=== PATIENT | female | born 1935 | race Caucasian/White ===

== ENCOUNTER 2020-05-02 15:57 | Inpatient (IN) | payer OTHER ==
[2020-05-02] MEDS ORDERED: NITROGLYCERIN 2% OINTMENT - 1GM PACKET TD ONE ×2 (16:37→16:38)
[2020-05-02] MEDS ORDERED: FUROSEMIDE 40 MG/4 ML INJECTABLE VIAL IVPUSH ONE ×3 (16:39→22:41)
--- NOTE | 2020-05-02 16:52 | PDOC ---
History of Present Illness - General Chief Complaint: Respiratory Stated Complaint: RESPIRATORY Time Seen by Provider: 05/02/20 16:12 - History of Present Illness Initial Comments: 05/02/20 16:46 84 y/o F hx of CHF, afib not on anticoagulation, copd, generalized anxiety, dementia, Breast Ca s/p masectomy with lymph node resection. She was d/c three days ago from this facility after tx for uti.Presents to the ED with shortness of breath via EMS. Findings of hypernatramia on routine labs at [facility] yesterday. Pt on nightly BIPAP at baseline. Pt unable to contribute to hx due to respiratory distress, placed on BIPAP in ED. PMHx: as noted above ROS: as noted Allergies: ceftriaxone PE: GENERAL: Awake, alert, and fully oriented, in no acute distress HEAD: No signs of trauma, normocephalic, atraumatic EYES: PERRLA, EOMI, sclera anicteric, conjunctiva clear ENT: Auricles normal inspection, hearing grossly normal, nares patent, oropharynx clear without exudates. Moist mucosa NECK: Normal ROM, supple, no lymphadenopathy, JVD, or masses LUNGS:crackles bilateral lung bajwa. HEART: tachycardic , normal S1 and S2, no murmurs, rubs or gallops, ABDOMEN: Soft, nontender, normoactive bowel sounds. No guarding, no rebound. No masses EXTREMITIES : Pitting edema in lower extremities bilaterally NEUROLOGICAL: Cranial nerves II through XII grossly intact. Normal speech, no focal sensorimotor deficits SKIN: Warm, Dry, normal turgor, no rashes or lesions noted 05/02/20 16:48 05/02/20 17:29 05/02/20 18:17 05/02/20 18:22 05/02/20 18:27 Past History - Medical History Allergies/Adverse Reactions: Allergies Allergy/AdvReac Type Severity Reaction Status Date / Time bee pollen Allergy Unknown Verified 05/02/20 16:18 ceftriaxone Allergy Verified 05/02/20 16:18 Tetanus Vaccines and Toxoid Allergy Verified 05/02/20 16:18 Home Medications: Ambulatory Orders Mirtazapine [Remeron -] 15 mg PO HS tablet 04/10/20 Albuterol 2.5/Ipratropium 0.5 [Duoneb -] 1 amp NEB BID 05/03/20 Amino Acids 4.25%/D5w [Clinimix 4.25%/D5w Solution] 72 ml IV Q24H infus.bag 05/19/20 Collagenase Clostridium Hist. [Santyl -] 1 applic TP DAILY tube 05/19/20 Metoprolol Tartrate [Lopressor -] 25 mg PO BID tablet 05/19/20 Mirtazapine [Remeron -] 15 mg PO HS tablet 05/19/20 Nystatin Powder [Nystop Powder -] 1 applic TP BID applic 05/19/20 Pantoprazole Sodium [Protonix IV] 40 mg IVPUSH BID vial 05/19/20 Cancer: Yes Cardiac Disorders: Yes (afib) CVA: (Dysphagia) COPD: Yes CHF: Yes GI Disorders: Yes (GERD) Disorders: Yes (POLINA) Psychiatric Problems: Yes (anxiety) - Immunization History Immunization Up to Date: No - Psycho-Social/Smoking History Smoking History: Unknown if ever smoked Have you smoked in the past 12 months: No Information on smoking cessation initiated: No - Substance Abuse Hx (Audit-C & DAST Scrn) How often the patient has a drink containing alcohol: Never Score: In Men: 4 or > Positive; In Women: 3 or > Positive: 0 Screen Result (Pos requires Nsg. Audit-10AR): Negative In the last yr the pt used illegal drug/Rx for NonMed reason: No Score: Yes response is considered Positive: 0 Screen Result (Positive result requires Nsg. DAST-10): Negative Review of Systems - Review of Systems Able to Perform ROS?: No (dementia) *Physical Exam - Vital Signs Last Vital Signs Temp Pulse Resp BP Pulse Ox 123 H 24 H 157/132 H 100 05/02/20 16:11 05/02/20 16:11 05/02/20 16:11 05/02/20 16:11 ED Treatment Course - LABORATORY CBC & Chemistry Diagram: 05/18/20 12:12 05/18/20 12:14 Medical Decision Making - Medical Decision Making 05/02/20 16:55 pt hypertensive nitropaste and iv lasix given continue to reassess blood pressure pt on bipap, oxygen sat at high 90's-100 05/02/20 17:25 CXR:pleural effusion and bibasilar atelectasis. EKG: pt blood pressure and respiratory effort improved after the above interventions 05/02/20 18:08 acute pulmonary edema elevated white count 12 midly anemic hgb 8.8 hypernatremic; 159 POLINA creatinine 1.7 lactic acid 2.1 ua 3+ leukocyte esterase pt given aztreonam IV renal contacted for consult on hypernatremia admit for further management. 05/02/20 19:04 Dr. West (renal consult) frequent bmp checks q3-4hrs. hold fluids at this time due to volume overload feed pt whenever they are able to tolerate feeds. 05/02/20 20:45 pt with worsening tachycardia 500 cc bolus ordered will recheck temp and reassess. 05/02/20 21:17 pt blood pressure improved after fluids, temp 98.3 (oral) tachycardia improved. Discharge - Discharge Information Problems reviewed: Yes Clinical Impression/Diagnosis: Failure to thrive Condition: Fair Disposition: DISCH TO [facility] - Follow up/Referral - Patient Discharge Instructions - Post Discharge Activity
[2020-05-02] MEDS ORDERED: FUROSEMIDE 40 MG/4 ML INJECTABLE VIAL ONE (17:03)
[2020-05-02 17:13] LABS: BASO % 0.9 % (0-2.0); EOS % 0.8 % (0-4.5); HEMATOCRIT 28.8 % (32.4-45.2); HEMOGLOBIN 8.8 GM/dL (10.7-15.3); LYMPH % 5.7 % (8-40); MCH 27.3 pg (25.7-33.7); MCHC 30.6 g/dl (32.0-36.0); MEAN CELL VOLUME 89.1 fl (80-96); MEAN PLT VOLUME 8.8 fl (7.5-11.1); MONO % 2.2 % (3.8-10.2); NEUT % 90.4 % (42.8-82.8); PLATELET COUNT 258 K/MM3 (134-434); RBC 3.23 M/mm3 (3.60-5.2); RDW 20.8 % (11.6-15.6)
[2020-05-02 17:16] LABS: INR 1.03 (0.83-1.09); PROTHROMBIN TIME (PATIENT) 12.1 SEC (9.7-13.0)
[2020-05-02 17:17] LABS: VENOUS PCO2 56.3 mmHg (38-52); VENOUS PH 7.368 (7.310-7.410)
[2020-05-02 17:18] LABS: VENOUS BASE EXCESS 5.4 mmol/L (-2-2)
[2020-05-02 17:19] LABS: ACTIVATED PTT 24.5 SECONDS (25.2-36.5)
[2020-05-02 17:21] LABS: EPI CELLS 17 /uL (0-25.1); HYALINE CASTS 3 /uL (0-3.1); URINE APPEARANCE CLOUDY; URINE BACTERIA 156 /uL (0-1359); URINE BILIRUBIN NEGATIVE (NEGATIVE); URINE COLOR YELLOW; URINE GLUCOSE (UA) NEGATIVE (NEGATIVE); URINE KETONE NEGATIVE (NEGATIVE); URINE LEUK ESTERASE 3+ (NEGATIVE); URINE NITRITE NEGATIVE (NEGATIVE); URINE PROTEIN NEGATIVE (NEGATIVE); URINE UROBILINOGEN 0.2 mg/dL (0.2-1.0); URINE WBC 1710 /uL (0-25.8)
[2020-05-02 17:34] LABS: ALBUMIN 2.1 g/dl (3.4-5.0); BILIRUBIN,TOTAL 0.5 mg/dL (0.2-1); BLOOD UREA NITROGEN 81.7 mg/dL (7-18); CALCIUM 8.6 mg/dL (8.5-10.1); CREATININE 1.7 mg/dL (0.55-1.3); N-TERMINAL BNP 3765.3 pg/ml (5-450); POTASSIUM 4.6 mmol/L (3.5-5.1); TOT PROT 5.3 g/dl (6.4-8.2)
[2020-05-02] MEDS ORDERED: MEROPENEM 1 GM in DEXTROSE 5%-WATER 100 ML IVPB ONE (17:45)
[2020-05-02 17:48] LABS: URINE RBC 50.8 /uL (0-23.9); YEAST MODERATE (NEGATIVE)
[2020-05-02 17:49] LABS: ANISOCYTOSIS 2+
[2020-05-02 17:50] LABS: PLATELET ESTIMATE ADEQUATE
[2020-05-02] MEDS ORDERED: MEROPENEM 1 GM VIAL (RESTRICTED TO ID) IVPB ONE (17:53)
[2020-05-02] MEDS ORDERED: AZTREONAM 1 GM VIAL (RESTRICTED TO ID) IVPB ONE (17:57)
[2020-05-02] MEDS ORDERED: AZTREONAM 1 GM VIAL (RESTRICTED TO ID) ONE (18:19)
--- NOTE | 2020-05-02 19:17 | HP ---
CHIEF COMPLAINT: shortness of breath PCP: Megan HISTORY OF PRESENT ILLNESS: Pt is an 84 y/o female from [facility] with afib (off Eliquis since last admission), COPD, dementia, possible liver cirrhosis, left breast cancer s/p mastectomy and lymph node resection, and anxiety who presents with worsening shortness of breath. Pt was last discharged from [facility] on 04/29/20 following tx for sepsis/UTI (urine cx pseudomonas, sputum cx MRSA) with aztreonam. Pt was on BiPAP and NC at [facility]. Pt denies chest pain. She was unable to answer more questions. At presentation to ED, pt was found to have BP 150/132. ER course was notable for: (1) 40mg Iv Lasix, NS bolus, nitro paste (2) UA +3 leuk esterase, 1710 WBC, 156 bacteria (3) Na 159, Cl 118, Cr 1.7, BNP 3765 PAST MEDICAL HISTORY: afib (off Eliquis since last admission), COPD, dementia, possible liver cirrhosis, left breast cancer s/p mastectomy and lymph node resection, and anxiety PAST SURGICAL HISTORY: mastectomy Social History: Smoking: unknown Alcohol: unknown Drugs: unknown [facility] resident Allergies bee pollen Allergy (Unknown, Verified 05/02/20 16:18) ceftriaxone Allergy (Verified 05/02/20 16:18) Tetanus Vaccines and Toxoid Allergy (Verified 05/02/20 16:18) HOME MEDICATIONS: Home Medications Medication Instructions Recorded Albuterol 2.5/Ipratropium 0.5 1 amp NEB Q6H PRN amp 04/10/20 [Duoneb -] Dronabinol [Marinol -] 2.5 mg PO DAILY capsule 04/10/20 Mirtazapine [Remeron -] 15 mg PO HS tablet 04/10/20 Furosemide [Lasix -] 60 mg PO DAILY tablet 04/29/20 Potassium Chloride [Klor-Con 10] 10 meq PO DAILY #30 tablet.er 04/29/20 predniSONE [Deltasone -] 10 mg PO DAILY tablet 04/29/20 Admelog Solostar See Protocol 05/02/20 Bacitracin - [Bacitracin Topical 1 applic TP BID 05/02/20 Ointment -] Omeprazole Magnesium [Prilosec] 40 mg PO 05/02/20 REVIEW OF SYSTEMS unable to perform PHYSICAL EXAMINATION Vital Signs - 24 hr 05/02/20 05/02/20 05/02/20 16:02 16:11 16:14 Temperature 99.5 F Pulse Rate 123 H Pulse Rate [ 115 H Left] Respiratory 24 H Rate Blood Pressure 157/132 H Blood Pressure 109/72 [Left] O2 Sat by Pulse 100 Oximetry (%) 05/02/20 05/02/20 05/02/20 16:30 16:56 17:35 Temperature Pulse Rate Pulse Rate [ 116 H 115 H Left] Respiratory 26 H 24 H Rate Blood Pressure Blood Pressure 113/62 114/62 [Left] O2 Sat by Pulse 98 98 Oximetry (%) 05/02/20 05/02/20 18:34 18:49 Temperature Pulse Rate Pulse Rate [ 115 H 112 H Left] Respiratory 22 H 22 H Rate Blood Pressure Blood Pressure 124/68 119/67 [Left] O2 Sat by Pulse Oximetry (%) GENERAL: Awake, alert, and oriented to person and place. HEAD: Normal with no signs of trauma. EYES: Pupils equal, round and reactive to light, extraocular movements intact, conjunctiva clear. EARS, NOSE, THROAT: Ears normal, nares patent, moist mucous membranes. NECK: Normal range of motion. LUNGS: Bibasilar crackles. On BiPAP. HEART: Regular rate and rhythm, no murmur appreciated. ABDOMEN: Soft, mild tenderness, not distended, normoactive bowel sounds. MUSCULOSKELETAL: Normal range of motion at all joints. UPPER EXTREMITIES: Right arm- warm, +2 pitting edema, difficult to appreciate radial pulse due to edema, no cyanosis. Left arm- warm, well-perfused, no significant edema. LOWER EXTREMITIES: B/l warm, well-perfused, +2 pitting edema to knees. Abrasion on right 4th toe. NEUROLOGICAL: CN grossly intact. PSYCHIATRIC: Calling out for her mother. Non-combative. SKIN: Warm, dry, normal turgor, left breast intertrigo, left groin intertrigo, ~3cm x 3cm x 1cm sacral ulcer not draining. Laboratory Results - last 24 hr 05/02/20 05/02/20 05/02/20 16:13 16:17 16:17 WBC RBC Hgb Hct MCV MCH MCHC RDW Plt Count MPV Absolute Neuts (auto) Neutrophils % Lymphocytes % Monocytes % Eosinophils % Basophils % Nucleated RBC % Hypochromia Platelet Estimate Anisocytosis Microcytosis PT with INR INR PTT (Actin FS) Anticoagulation Therapy Cancelled Puncture Site Cancelled Patient Temperature Cancelled ABG pH Cancelled ABG pCO2 Cancelled ABG pO2 Cancelled ABG HCO3 Cancelled ABG O2 Sat (Measured) Cancelled ABG O2 Content Cancelled ABG Base Excess Cancelled Kevin Test Cancelled VBG pH 7.368 POC VBG pCO2 56.3 H POC VBG pO2 < 46.9 VBG HCO3 31.7 H VBG O2 Sat (Kareem) 72.0 VBG Base Excess 5.4 H Carboxyhemoglobin Cancelled Methemoglobin Cancelled Patient On Oxygen Cancelled O2 Delivery Device Cancelled Oxygen Flow Rate Cancelled Vent Mode Cancelled Vent Rate Cancelled Mechanical Rate Cancelled PEEP Cancelled Pressure Support Vent Cancelled Sodium 159 H Potassium 4.6 Chloride 118 H Carbon Dioxide 34 H Anion Gap 7 L BUN 81.7 H Creatinine 1.7 H Est GFR (CKD-EPI)AfAm 31.77 Est GFR (CKD-EPI)NonAf 27.41 Random Glucose 132 H Lactic Acid Calcium 8.6 Magnesium 2.0 Total Bilirubin 0.5 AST 24 ALT 23 Alkaline Phosphatase 200 H Creatine Kinase 26 Troponin I 0.05 B-Natriuretic Peptide 3765.3 H Total Protein 5.3 L Albumin 2.1 L Urine Color Urine Appearance Urine pH Ur Specific [place] Urine Protein Urine Glucose (UA) Urine Ketones Urine Blood Urine Nitrite Urine Bilirubin Urine Urobilinogen Ur Leukocyte Esterase Urine WBC (Auto) Urine RBC (Auto) Urine Casts (Auto) U Epithel Cells (Auto) Urine Bacteria (Auto) Urine Yeast (Auto) 05/02/20 05/02/20 05/02/20 16:29 16:29 16:29 WBC 12.0 H RBC 3.23 L Hgb 8.8 L Hct 28.8 L MCV 89.1 MCH 27.3 MCHC 30.6 L RDW 20.8 H Plt Count 258 D MPV 8.8 Absolute Neuts (auto) 10.8 H Neutrophils % 90.4 H Lymphocytes % 5.7 L Monocytes % 2.2 L Eosinophils % 0.8 Basophils % 0.9 D Nucleated RBC % 0 Hypochromia 2+ Platelet Estimate Adequate Anisocytosis 2+ Microcytosis 2+ PT with INR 12.10 INR 1.03 PTT (Actin FS) 24.5 L Anticoagulation Therapy Puncture Site Patient Temperature ABG pH ABG pCO2 ABG pO2 ABG HCO3 ABG O2 Sat (Measured) ABG O2 Content ABG Base Excess Kevin Test VBG pH POC VBG pCO2 POC VBG pO2 VBG HCO3 VBG O2 Sat (Kareem) VBG Base Excess Carboxyhemoglobin Methemoglobin Patient On Oxygen O2 Delivery Device Oxygen Flow Rate Vent Mode Vent Rate Mechanical Rate PEEP Pressure Support Vent Sodium Potassium Chloride Carbon Dioxide Anion Gap BUN Creatinine Est GFR (CKD-EPI)AfAm Est GFR (CKD-EPI)NonAf Random Glucose Lactic Acid 2.1 H Calcium Magnesium Total Bilirubin AST ALT Alkaline Phosphatase Creatine Kinase Troponin I B-Natriuretic Peptide Total Protein Albumin Urine Color Urine Appearance Urine pH Ur Specific [place] Urine Protein Urine Glucose (UA) Urine Ketones Urine Blood Urine Nitrite Urine Bilirubin Urine Urobilinogen Ur Leukocyte Esterase Urine WBC (Auto) Urine RBC (Auto) Urine Casts (Auto) U Epithel Cells (Auto) Urine Bacteria (Auto) Urine Yeast (Auto) 05/02/20 16:45 WBC RBC Hgb Hct MCV MCH MCHC RDW Plt Count MPV Absolute Neuts (auto) Neutrophils % Lymphocytes % Monocytes % Eosinophils % Basophils % Nucleated RBC % Hypochromia Platelet Estimate Anisocytosis Microcytosis PT with INR INR PTT (Actin FS) Anticoagulation Therapy Puncture Site Patient Temperature ABG pH ABG pCO2 ABG pO2 ABG HCO3 ABG O2 Sat (Measured) ABG O2 Content ABG Base Excess Kevin Test VBG pH POC VBG pCO2 POC VBG pO2 VBG HCO3 VBG O2 Sat (Kareem) VBG Base Excess Carboxyhemoglobin Methemoglobin Patient On Oxygen O2 Delivery Device Oxygen Flow Rate Vent Mode Vent Rate Mechanical Rate PEEP Pressure Support Vent Sodium Potassium Chloride Carbon Dioxide Anion Gap BUN Creatinine Est GFR (CKD-EPI)AfAm Est GFR (CKD-EPI)NonAf Random Glucose Lactic Acid Calcium Magnesium Total Bilirubin AST ALT Alkaline Phosphatase Creatine Kinase Troponin I B-Natriuretic Peptide Total Protein Albumin Urine Color Yellow Urine Appearance Cloudy Urine pH 5.0 Ur Specific [place] 1.010 Urine Protein Negative Urine Glucose (UA) Negative Urine Ketones Negative Urine Blood Trace Urine Nitrite Negative Urine Bilirubin Negative Urine Urobilinogen 0.2 Ur Leukocyte Esterase 3+ H Urine WBC (Auto) 1710 Urine RBC (Auto) 50.8 Urine Casts (Auto) 3 U Epithel Cells (Auto) 17 Urine Bacteria (Auto) 156 Urine Yeast (Auto) Moderate ASSESSMENT/PLAN: Pt is an 84 y/o female from [facility] with afib (off Eliquis since last admission), COPD, dementia, possible liver cirrhosis, left breast cancer s/p mastectomy and lymph node resection, and anxiety who presents with worsening shortness of breath. Pt was discharged from [facility] on 04/29/20 following tx for UTI with aztreonam. #SOB 2/2 pulmonary edema #hypernatremia #POLINA -pulmonary edema possibly 2/2 CHF vs less likely PNA vs PE vs hepatorenal syndrome -sputum cx on last admission positive for MRSA -echo -d-dimer 1900- elevated from infection vs PE -Eliquis at dose for PE tx until stable for VQ scan -Eliquis 10mg BID (no renal dosage adjustment for PE tx) -Lasix 60mg IV, reassess -D5W @ 50mL/hr because of intravascular depletion -monitor Na and Cr with serial BMPs -monitor I/Os -liver U/S -nephrology consulted (Dr. Brett stein) #UTI -urine cx positive pseudomonas on 04/17/20 and sensitive to meropenem -meropenem 1g -vancomycin, renally dosed -urine cx -ID consult #chronic sacral ulcer -santyl #intertrigo -left breast and left groin -nystatin powder BID #left groin wound -left femoral line removed at discharge on 04/29/20, no drainage or focal erythema appreciated -wound culture DVT Ppx Eliquis FEN D5W 50mL/hr monitor Na, Cl, Cr NPO except meds dispo tele FULL CODE Visit type - Emergency Visit Emergency Visit: Yes ED Registration Date: 05/02/20 Care time: The patient presented to the Emergency Department on the above date and was hospitalized for further evaluation of their emergent condition. - New Patient This patient is new to me today: Yes Date on this admission: 05/02/20 - Critical Care Critical Care patient: No ATTENDING PHYSICIAN STATEMENT I saw and evaluated the patient. I reviewed the resident's note and discussed the case with the resident. I agree with the resident's findings and plan as documented. SUBJECTIVE: OBJECTIVE: ASSESSMENT AND PLAN:
--- NOTE | 2020-05-02 19:21 | PN ---
Teaching Attending Note Name of Resident: Lubna Coy ATTENDING PHYSICIAN STATEMENT I saw and evaluated the patient. I reviewed the resident's note and discussed the case with the resident. I agree with the resident's findings and plan as documented. SUBJECTIVE: Patient is an 84 year old woman with a PMH of HFpEF, Afib (not on anticoagul ation), Ceftriaxone allergy, COPD, GERD, Dysphagia, Anxiety, Dementia, Breast cancer (s/p left masectomy with lymph node resection) brought by EMS to the ER for shortness of breath. Patient is on BiPAP nightly at baseline. Found to have hypernatremia on routine laboratory test at [facility] yesterday. Patient placed on BiPAP on arrival in the ER and is unable to contribute to the history due to respiratory distress. Patient was discharged three days ago after a lengthy hospital stay from 03/11/2020 for UTI and other issues. Has tested negative four times for COVID-19 since 03/25/2020. No reported chest pain, fever, chills, frequency, hematuria or diarrhea. No reported history of alcohol, tobacco or illicit drug use. No reported recent travels. Family history is unobtainable. OBJECTIVE: Alert but confused Vital Signs Period Temp Pulse Resp BP Sys/Mcgarry Pulse Ox Last 24 Hr 99.5 F 112-123 22-26 109-157/62-132 98-100 HEENT: No Jaundice, eye redness or discharge, PERRLA, EOMI. Normocephalic, atraumatic. External ears are normal and hearing is grossly intact. No nasal discharge. Neck: Supple, nontender. No palpable adenopathy or thyromegaly. No JVD Chest: Good effort. Bibasilar crackles. Clear to percussion. Heart: Tachycardia. No S3, rub or murmur Abdomen: Not distended, soft, nontender and no HSM. No rebound or guarding. Normal bowel sounds. Ext: Peripheral pulses intact. RUE edema. Leg edema. Abrasion left fourth toe. Skin: Warm and dry. No petechiae, rash or ecchymosis. Sacral decubitus ulcer. Neuro: Alert. Oriented to person; unable to follow simple commands. CN 2-12 grossly intact. Sensation grossly intact in all four extremities and DTR are symmetric. Gait not tested for safety reasons. Psych: Appropriate mood and affect. Good insight. Home Medications Medication Instructions Recorded Albuterol 2.5/Ipratropium 0.5 1 amp NEB Q6H PRN amp 04/10/20 [Duoneb -] Dronabinol [Marinol -] 2.5 mg PO DAILY capsule 04/10/20 Mirtazapine [Remeron -] 15 mg PO HS tablet 04/10/20 Furosemide [Lasix -] 60 mg PO DAILY tablet 04/29/20 Potassium Chloride [Klor-Con 10] 10 meq PO DAILY #30 tablet.er 04/29/20 predniSONE [Deltasone -] 10 mg PO DAILY tablet 04/29/20 Admelog Solostar See Protocol 05/02/20 Bacitracin - [Bacitracin Topical 1 applic TP BID 05/02/20 Ointment -] Omeprazole Magnesium [Prilosec] 40 mg PO 05/02/20 Abnormal Lab Results 05/02/20 05/02/20 05/02/20 16:13 16:17 16:29 WBC RBC Hgb Hct MCHC RDW Absolute Neuts (auto) Neutrophils % Lymphocytes % Monocytes % PTT (Actin FS) 24.5 L POC VBG pCO2 56.3 H VBG HCO3 31.7 H VBG Base Excess 5.4 H Sodium 159 H Chloride 118 H Carbon Dioxide 34 H Anion Gap 7 L BUN 81.7 H Creatinine 1.7 H Random Glucose 132 H Lactic Acid Alkaline Phosphatase 200 H B-Natriuretic Peptide 3765.3 H Total Protein 5.3 L Albumin 2.1 L Ur Leukocyte Esterase 05/02/20 05/02/20 05/02/20 16:29 16:29 16:45 WBC 12.0 H RBC 3.23 L Hgb 8.8 L Hct 28.8 L MCHC 30.6 L RDW 20.8 H Absolute Neuts (auto) 10.8 H Neutrophils % 90.4 H Lymphocytes % 5.7 L Monocytes % 2.2 L PTT (Actin FS) POC VBG pCO2 VBG HCO3 VBG Base Excess Sodium Chloride Carbon Dioxide Anion Gap BUN Creatinine Random Glucose Lactic Acid 2.1 H Alkaline Phosphatase B-Natriuretic Peptide Total Protein Albumin Ur Leukocyte Esterase 3+ H ASSESSMENT AND PLAN: 1. CHF exacerbation/UTI - Respiratory distress may not be entirely due to CHF exacerbation - pneumonia or pulmonary embolism have to be ruled out. Patient is too unstable to get a CTA chest to rule out pulmonary embolism, so will get D- Dimer and leg doppler. CXR shows cardiomegaly, scoliosis, left pleural effusion and left basilar atelectasis/consolidation - not significantly different from her most recent xray on April 24, 2020. Of note is that her chest CT from 03/11/2020 showed consolidation/atelectasis in LLL and ground glass changes throughout the lung bajwa. ECHO from 01/30/2020 showed grossly normal LV function and grossly normal LV ejection fraction. EKG shows sinus tachycardia at 122/minute, PVCs, RAD, anterior infarct of undetermined age and QTc [address] changes. Initial troponin is negative. Will admit to telemetry, trend troponin, get ECHO, treat with escalating doses of IV Lasix to achieve adequate diuresis, restrict dietary salt intake, get daily weight and consult Cardiology. Its unclear why Eliquis for Afib was stopped during the last admission. Her [id number] VASc score is 4. She had MRSA in sputum on 04/20/2020 and Pseudomonas in the urine on 04/17/2020 - will treat with dose adjusted IV Vancomycin and Meropenem. Will need ultrasound of the LLL to quantify "pleural effusion" and consult Interventional Radiology for diagnostic thoracentesis to rule out empyema. Viral testing for COVID-19 ordered and patient placed on airborne, droplet and contact isolation. Hypernatremia is multifactorial - will start D5W while she is being diuresed with IV Lasix and monitor serum sodium q 4 hours to avoid a rapid drop. Provide wound care for sacral decubitus ulcer and toe abrasion. Will continue comprehensive care for all of patients comorbid conditions. 2. CKD with superimposed POLINA POLINA likely multifactorial. Will monitor urine output and consult Nephrology. Avoid nephrotoxic agents such as NSAIDS, aminoglycosides, contrast dyes and certain Alternative medicine products. 3. Anemia - Likely partly due to CKD. Will do basic anemia work up including serial stool guaiacs, reticulocyte count and iron studies. Would benefit from Procrit therapy once iron replete. 4. Obesity Counseled on the risks associated with obesity. Will provide patien t all the necessary assistance, counseling and positive reinforcement to facilitate weight loss. Consult marketing analytics specialist. 5. DVT prophylaxis - Heparin 5000u sq tid. 6. Advance directives - Full code
[2020-05-02] MEDS ORDERED: SODIUM CHLORIDE 0.9% 500 ML INFUS.BAG IV ONE ×2 (20:27→20:44)
[2020-05-02] MEDS ORDERED: VANCOMYCIN 1 GRAM (PRE-DOCKED) 1,000 MG/250 ML BAG IVPB ONE (21:21)
[2020-05-02 21:46] LABS: BLOOD UREA NITROGEN 88.8 mg/dL (7-18); CALCIUM 8.6 mg/dL (8.5-10.1); CREATININE 1.7 mg/dL (0.55-1.3); POTASSIUM 4.5 mmol/L (3.5-5.1)
[2020-05-02] MEDS: DEXTROSE 5%-WATER - 1,000 ML IV SCH (22:45)
[2020-05-02] MEDS: APIXABAN 5 MG TABLET PO SCH (23:02)
[2020-05-02] MEDS: NYSTATIN POWDER 100,000 UNITS/GM - 15 GM TOPICAL POWDER TP SCH (23:14)
[2020-05-02] MEDS: MIRTAZAPINE 15 MG TABLET (FP) PO SCH (23:15)
--- NOTE | 2020-05-02 23:27 | PDOC ---
Documentation entered by Americo Kelly SCRIBE, acting as scribe for Luiz Taylor DO. Luiz Taylor DO: This documentation has been prepared by the albereRobin Angel, SCRIBE, under my direction and personally reviewed by me in its entirety. I confirm that the documentation accurately reflects all work, treatment, procedures, and medical decision making performed by me. *Physical Exam - Vital Signs Last Vital Signs Temp Pulse Resp BP Pulse Ox 99.5 F 112 H 22 H 119/67 98 05/02/20 16:14 05/02/20 18:49 05/02/20 18:49 05/02/20 18:49 05/02/20 16:56 ED Treatment Course - LABORATORY CBC & Chemistry Diagram: 05/18/20 12:12 05/18/20 12:14 - ADDITIONAL ORDERS Additional order review: Laboratory Results 05/02/20 05/02/20 05/02/20 16:45 16:29 16:29 PT with INR 12.10 INR 1.03 PTT (Actin FS) 24.5 L Anticoagulation Therapy Puncture Site Patient Temperature ABG pH ABG pCO2 ABG pO2 ABG HCO3 ABG O2 Sat (Measured) ABG O2 Content ABG Base Excess Kevin Test VBG pH POC VBG pCO2 POC VBG pO2 VBG HCO3 VBG O2 Sat (Kareem) VBG Base Excess Carboxyhemoglobin Methemoglobin Patient On Oxygen O2 Delivery Device Oxygen Flow Rate Vent Mode Vent Rate Mechanical Rate PEEP Pressure Support Vent Sodium Potassium Chloride Carbon Dioxide Anion Gap BUN Creatinine Est GFR (CKD-EPI)AfAm Est GFR (CKD-EPI)NonAf Random Glucose Lactic Acid 2.1 H Calcium Magnesium Total Bilirubin AST ALT Alkaline Phosphatase Creatine Kinase Troponin I B-Natriuretic Peptide Total Protein Albumin Urine Color Yellow Urine Appearance Cloudy Urine pH 5.0 Ur Specific [place] 1.010 Urine Protein Negative Urine Glucose (UA) Negative Urine Ketones Negative Urine Blood Trace Urine Nitrite Negative Urine Bilirubin Negative Urine Urobilinogen 0.2 Ur Leukocyte Esterase 3+ H Urine WBC (Auto) 1710 Urine RBC (Auto) 50.8 Urine Casts (Auto) 3 U Epithel Cells (Auto) 17 Urine Bacteria (Auto) 156 Urine Yeast (Auto) Moderate 05/02/20 05/02/20 05/02/20 16:17 16:17 16:13 PT with INR INR PTT (Actin FS) Anticoagulation Therapy Cancelled Puncture Site Cancelled Patient Temperature Cancelled ABG pH Cancelled ABG pCO2 Cancelled ABG pO2 Cancelled ABG HCO3 Cancelled ABG O2 Sat (Measured) Cancelled ABG O2 Content Cancelled ABG Base Excess Cancelled Kevin Test Cancelled VBG pH 7.368 POC VBG pCO2 56.3 H POC VBG pO2 < 46.9 VBG HCO3 31.7 H VBG O2 Sat (Kareem) 72.0 VBG Base Excess 5.4 H Carboxyhemoglobin Cancelled Methemoglobin Cancelled Patient On Oxygen Cancelled O2 Delivery Device Cancelled Oxygen Flow Rate Cancelled Vent Mode Cancelled Vent Rate Cancelled Mechanical Rate Cancelled PEEP Cancelled Pressure Support Vent Cancelled Sodium 159 H Potassium 4.6 Chloride 118 H Carbon Dioxide 34 H Anion Gap 7 L BUN 81.7 H Creatinine 1.7 H Est GFR (CKD-EPI)AfAm 31.77 Est GFR (CKD-EPI)NonAf 27.41 Random Glucose 132 H Lactic Acid Calcium 8.6 Magnesium 2.0 Total Bilirubin 0.5 AST 24 ALT 23 Alkaline Phosphatase 200 H Creatine Kinase 26 Troponin I 0.05 B-Natriuretic Peptide 3765.3 H Total Protein 5.3 L Albumin 2.1 L Urine Color Urine Appearance Urine pH Ur Specific [place] Urine Protein Urine Glucose (UA) Urine Ketones Urine Blood Urine Nitrite Urine Bilirubin Urine Urobilinogen Ur Leukocyte Esterase Urine WBC (Auto) Urine RBC (Auto) Urine Casts (Auto) U Epithel Cells (Auto) Urine Bacteria (Auto) Urine Yeast (Auto) 05/02/20 16:29 RBC 3.23 L MCV 89.1 MCHC 30.6 L RDW 20.8 H MPV 8.8 Neutrophils % 90.4 H Lymphocytes % 5.7 L Monocytes % 2.2 L Eosinophils % 0.8 Basophils % 0.9 D - Medications Given in the ED: ED Medications Discontinued Medications Generic Name Dose Route Start Last Admin Trade Name Freq PRN Reason Stop Dose Admin Aztreonam 1 gm 05/02/20 17:57 05/02/20 18:26 Azactam (Restricted To Id) - IVPB 05/02/20 17:58 1 gm ONCE ONE Administration Protocol Furosemide 60 mg 05/02/20 16:39 05/02/20 16:58 Lasix Injection - IVPUSH 05/02/20 16:40 Not Given ONCE ONE Furosemide 40 mg 05/02/20 16:58 05/02/20 17:08 Lasix Injection - IVPUSH 05/02/20 16:59 40 mg ONCE ONE Administration Meropenem 1 gm/ Dextrose 100 mls @ 200 mls/hr 05/02/20 17:45 05/02/20 17:56 IVPB 05/02/20 18:14 200 mls/hr ONCE ONE Administration Nitroglycerin 0.5 inch 05/02/20 16:37 05/02/20 16:52 Nitro-Bid 2% Paste - TD 05/02/20 16:38 0.5 inch ONCE ONE Administration ED Progress Note - Progress Note Progress Note: 05/02/20 19:09 Signout from pior attending for follow up admission for CHF exacerbation Patient was found to be hypernatremic, volume overloaded on exam. POLINA greater than 20 to 1. May be secondary to cardiorenal failure Admit to tele Patient improved on Bipap and is doing well. Blood pressure borderline low, tachycardic , hypoalbuminemia and appears to be shivering Bedside echo shows collapsible IVC. No B lines Although LV function shows to be mild to moderate depressed Able to receive fluids 500CC bolus Patient shivering repeat rectal temperature Disagree with diagnosis of CHF Responding to fluid and is comfortable now Stable for transport for Tele Endorse Care for tele team 05/02/20 21:04 06/04/20 22:17 Medical Decision Making - Medical Decision Making 06/04/20 22:18 agree w res Discharge - Discharge Information Problems reviewed: Yes Clinical Impression/Diagnosis: Failure to thrive Condition: Fair Disposition: DISCH TO [facility] - Follow up/Referral - Patient Discharge Instructions - Post Discharge Activity
[2020-05-03] MEDS ORDERED: MEROPENEM 1 GM in DEXTROSE 5%-WATER 100 ML IVPB ONE (05:00)
[2020-05-03] MEDS ORDERED: MEROPENEM 1 GM VIAL (RESTRICTED TO ID) IVPB ONE (05:42)
[2020-05-03] MEDS ORDERED: DEXTROSE 5%-WATER 100 ML IVPB ONE (05:42)
[2020-05-03] MEDS ORDERED: PT OWN MED DRAWER 7, Y5N ONE (09:17)
[2020-05-03] MEDS: APIXABAN 5 MG TABLET PO SCH ×2 (09:47→21:10)
[2020-05-03] MEDS: COLLAGENASE CLOSTRIDIUM HIST. 30 GRAMS TUBE TP SCH (09:48)
[2020-05-03] MEDS: NYSTATIN POWDER 100,000 UNITS/GM - 15 GM TOPICAL POWDER TP SCH ×2 (09:49→21:10)
--- NOTE | 2020-05-03 10:50 | PN ---
Progress Note, Physician History of Present Illness: 84 year old woman with a PMH of HFpEF, Afib (not on anticoagulation), Ceftriaxone allergy, COPD, GERD, Dysphagia, Anxiety, Dementia, Breast cancer (s/p left masectomy with lymph node resection) brought by EMS to the ER for shortness of breath. Patient is on BiPAP nightly at baseline. Found to have hypernatremia on routine laboratory test at [facility] yesterday. - Current Medication List Current Medications: Active Medications Apixaban (Eliquis -) 10 mg PO BID DAREN Stop: 05/09/20 10:01 Last Admin: 05/03/20 09:47 Dose: 10 mg Documented by: Collagenase (Santyl -) 1 applic TP DAILY DAREN; Protocol Last Admin: 05/03/20 09:48 Dose: 1 applic Documented by: Dextrose (D5w -) 1,000 mls @ 50 mls/hr IV ASDIR DAREN Last Admin: 05/02/20 22:45 Dose: 50 mls/hr Documented by: Mirtazapine (Remeron -) 15 mg PO HS DAREN Last Admin: 05/02/20 23:15 Dose: 15 mg Documented by: Nystatin (Nystop Powder -) 1 applic TP BID DAREN Last Admin: 05/03/20 09:49 Dose: 1 applic Documented by: - Objective Vital Signs: Vital Signs Temperature 98.2 F 05/03/20 09:46 Pulse Rate 110 H 05/03/20 09:46 Respiratory Rate 21 H 05/03/20 09:46 Blood Pressure 116/51 L 05/03/20 09:46 O2 Sat by Pulse Oximetry (%) 100 05/03/20 09:00 Cardiovascular: Yes: S1, S2 Respiratory: Yes: Regular, CTA Bilaterally Gastrointestinal: Yes: Normal Bowel Sounds, Soft Labs: CBC, BMP 05/02/20 16:29 05/02/20 19:05 INR, PTT INR 1.03 (0.83-1.09) 05/02/20 16:29 Problem List - Problems (1) Hypernatremia Assessment/Plan: IVF HOLD DIURETICS RENAL CONSULT FOLLOW LABS Code(s): E87.0 - HYPEROSMOLALITY AND HYPERNATREMIA (2) Sepsis Assessment/Plan: WBC 12 BC ID CONSULT Code(s): A41.9 - SEPSIS, UNSPECIFIED ORGANISM Qualifiers: (3) Afib Assessment/Plan: SAME MEDS Code(s): I48.91 - UNSPECIFIED ATRIAL FIBRILLATION (4) CKD (chronic kidney disease) Assessment/Plan: RENAL ON BOARD Code(s): N18.9 - CHRONIC KIDNEY DISEASE, UNSPECIFIED
--- NOTE | 2020-05-03 12:44 | EKG ---
Test Reason : Blood Pressure : / mmHG Vent. Rate : 122 BPM Atrial Rate : 122 BPM P-R Int : 134 ms QRS Dur : 072 ms QT Int : 328 ms P-R-T Axes : 057 269 047 degrees QTc Int : 467 ms SINUS TACHYCARDIA WITH OCCASIONAL and consecutive PREMATURE VENTRICULAR COMPLEXES RIGHT SUPERIOR AXIS DEVIATION LOW VOLTAGE QRS CANNOT RULE OUT ANTERIOR INFARCT (CITED ON OR BEFORE 17-APR-2020) ABNORMAL ECG WHEN COMPARED WITH ECG OF 17-APR-2020 21:26, PREVIOUS ECG HAS UNDETERMINED RHYTHM, NEEDS REVIEW CRITERIA FOR INFERIOR INFARCT ARE NO LONGER PRESENT NONSPECIFIC T WAVE ABNORMALITY, IMPROVED IN INFERIOR LEADS NONSPECIFIC T WAVE ABNORMALITY NO LONGER EVIDENT IN LATERAL LEADS Confirmed by MD Bartlett Daniel ([id number]) on 05/03/2020 12:43:42 PM Referred By: Confirmed By:Raudel Bartlett MD
[2020-05-03 13:11] LABS: BASO % 1.1 % (0-2.0); EOS % 3.6 % (0-4.5); HEMATOCRIT 26.9 % (32.4-45.2); HEMOGLOBIN 8.2 GM/dL (10.7-15.3); LYMPH % 10.1 % (8-40); MCH 27.3 pg (25.7-33.7); MCHC 30.6 g/dl (32.0-36.0); MEAN CELL VOLUME 89.2 fl (80-96); MONO % 5.7 % (3.8-10.2); NEUT % 79.5 % (42.8-82.8); PLATELET COUNT 252 K/MM3 (134-434); RBC 3.01 M/mm3 (3.60-5.2); RDW 20.6 % (11.6-15.6); WHITE BLOOD COUNT 12.5 K/mm3 (4.0-10.0)
[2020-05-03 13:15] LABS: INR 2.11 (0.83-1.09); PROTHROMBIN TIME (PATIENT) 25.1 SEC (9.7-13.0)
--- NOTE | 2020-05-03 13:21 | CON.PULM ---
Consult Consult Specialty:: PULM/CCM Referred by:: JACKIE Reason for Consultation:: Abnormal CXR - History of Present Illness Chief Complaint: SOB History of Present Illness: 84 F, AFib on Eliquis, COPD, dementia, (?) cirrhosis, left breast cancer s/p mastectomy and lymph node resection, and anxiety. Admitted via the ER due to shortness of breath. She was recently discharged from [facility] on 04/29/20 following treatment for sepsis/ UTI (urine pseudomonas, sputum MRSA). Placed on NIPV In the ER with good response. Now awake and alert in NAD on NC O2. Reports subjective improvement in her breathing. Some dry cough. CXR: LLL opacity / probable effusion. Previous CT imaging: LLL consolidation atelectasis - History Source History Provided By: Patient Limitations to Obtaining History: Poor Historian - Past Medical History Cardio/Vascular: Yes: AFIB, CHF Pulmonary: Yes: COPD, Pneumonia (influenza A pneumonia 01/30) Gastrointestinal: Yes: GERD Hepatobiliary: Yes: Cirrhosis (by 01/30 sonogram), Other (shock liver in 01/30 when intubated with influenza A pneumonia) ...: No Musculoskeletal: Yes: Chronic low back pain - Past Surgical History Past Surgical History: Yes: None (unknown) - Alcohol/Substance Use Hx Alcohol Use: No - Smoking History Smoking history: Unknown if ever smoked Have you smoked in the past 12 months: No - Social History Usual Living Arrangement: Fdc ADL: Support Services Occupation: Retired History of Recent Travel: No Home Medications - Allergies Allergies/Adverse Reactions: Allergies Allergy/AdvReac Type Severity Reaction Status Date / Time bee pollen Allergy Unknown Verified 05/02/20 16:18 ceftriaxone Allergy Verified 05/02/20 16:18 Tetanus Vaccines and Toxoid Allergy Verified 05/02/20 16:18 - Home Medications Home Medications: Ambulatory Orders Dronabinol [Marinol -] 2.5 mg PO DAILY capsule 04/10/20 Mirtazapine [Remeron -] 15 mg PO HS tablet 04/10/20 Furosemide [Lasix -] 60 mg PO DAILY tablet 04/29/20 Potassium Chloride [Klor-Con 10] 10 meq PO DAILY #30 tablet.er 04/29/20 predniSONE [Deltasone -] 10 mg PO DAILY tablet 04/29/20 Admelog Solostar See Protocol 05/02/20 Bacitracin - [Bacitracin Topical Ointment -] 1 applic TP BID 05/02/20 Omeprazole Magnesium [Prilosec] 40 mg PO BID 05/02/20 Albuterol 2.5/Ipratropium 0.5 [Duoneb -] 1 amp NEB BID 05/03/20 Silver Sulfadiazine 1% Top Cr [Silvadene -] 1 applic TD BID 05/03/20 Review of Systems - Review of Systems Constitutional: reports: Malaise. denies: Chills, Fever, Lethargy, Night Sweats, Unintentional Wgt. Loss Eyes: reports: No Symptoms HENT: reports: No Symptoms Neck: reports: No Symptoms Cardiovascular: reports: Edema, Shortness of Breath. denies: Chest Pain, Palpitations Respiratory: reports: Cough, SOB, SOB on Exertion. denies: Hemoptysis, Orthopnea, PND, Snoring, Wheezing Gastrointestinal: reports: No Symptoms Genitourinary: reports: No Symptoms Breasts: reports: No Symptoms Reported Musculoskeletal: reports: No Symptoms Integumentary: reports: No Symptoms Neurological: reports: No Symptoms, Weakness Hematology/Lymphatic: reports: No Symptoms Psychiatric: reports: No Symptoms Physical Exam Vital Sings: Vital Signs Temperature 98.2 F 05/03/20 09:46 Pulse Rate 94 H 05/03/20 11:45 Respiratory Rate 21 H 05/03/20 09:46 Blood Pressure 116/51 L 05/03/20 09:46 O2 Sat by Pulse Oximetry (%) 96 05/03/20 11:45 Constitutional: Yes: No Distress, Obese Eyes: Yes: Conjunctiva Clear, EOM Intact HENT: Yes: Atraumatic, Normocephalic Neck: Yes: Supple, Trachea Midline Cardiovascular: Yes: Pulse Irregular Respiratory: Yes: Diminished, On Nasal O2, Rhonchi. No: Accessory Muscle Use, Rales, SOB, SOB on Exertion, Stridor, Tachypnea, Wheezes ...Inspection: Yes: WNL ...Clubbing: No Gastrointestinal: Yes: Normal Bowel Sounds, Soft, Abdomen, Obese Renal/: Yes: WNL Musculoskeletal: Yes: WNL Extremities: Yes: WNL Edema: Yes Peripheral Pulses WNL: Yes Integumentary: Yes: WNL Neurological: Yes: WNL, Alert, Oriented ...Motor Strength: WNL Psychiatric: Yes: WNL, Alert, Oriented Labs: CBC, BMP 05/03/20 11:09 ABG Results ABG pH Cancelled 05/02/20 16:17 ABG HCO3 Cancelled 05/02/20 16:17 ABG O2 Sat (Measured) Cancelled 05/02/20 16:17 ABG O2 Content Cancelled 05/02/20 16:17 ABG Base Excess Cancelled 05/02/20 16:17 Imaging - Results Chest X-ray: Report Reviewed, Image Reviewed Cat Scan: Report Reviewed, Image Reviewed Problem List - Problems (1) Atelectasis Code(s): J98.11 - ATELECTASIS (2) Pleural effusion Code(s): J90 - PLEURAL EFFUSION, NOT ELSEWHERE CLASSIFIED (3) Afib Code(s): I48.91 - UNSPECIFIED ATRIAL FIBRILLATION (4) Anemia Code(s): D64.9 - ANEMIA, UNSPECIFIED Qualifiers: Chronic kidney disease stage: stage 3 (moderate) (5) CHF exacerbation Code(s): I50.9 - HEART FAILURE, UNSPECIFIED (6) CKD (chronic kidney disease) Code(s): N18.9 - CHRONIC KIDNEY DISEASE, UNSPECIFIED (7) Dementia Code(s): F03.90 - UNSPECIFIED DEMENTIA WITHOUT BEHAVIORAL DISTURBANCE (8) GERD (gastroesophageal reflux disease) Code(s): K21.9 - GASTRO-ESOPHAGEAL REFLUX DISEASE WITHOUT ESOPHAGITIS Assessment/Plan Noted patient given Lasix in the ER and reports subjective improvement Diuresis as needed Do not suspect PNA : Monitor off ABX Daily weights an Follow I & O VTE prophylaxis NIPPV support as needed BD TX PRN Monitor off systemic steroids Will follow Thank you. Dr Carver
[2020-05-03] MEDS ORDERED: ALBUTEROL SO4 0.083% IH SOL 2.5 MG/3 ML VIAL.NEB. NEB PRN (13:24)
--- NOTE | 2020-05-03 13:30 | CON.NEP ---
Consult Consult Specialty:: nephrology Referred by:: Jhoan Reason for Consultation:: hypernatremia - History of Present Illness Chief Complaint: sob History of Present Illness: Transfer from [place] with SOB eval in ER dx HF and hypernatremia she was recently discharged from this hosp and serum Na has been rising over days - History Source History Provided By: Medical Record - Past Medical History Cardio/Vascular: Yes: AFIB, CHF Pulmonary: Yes: COPD, Pneumonia (influenza A pneumonia 01/30) Gastrointestinal: Yes: GERD Hepatobiliary: Yes: Cirrhosis (by 01/30 sonogram), Other (shock liver in 01/30 when intubated with influenza A pneumonia) ...: No Musculoskeletal: Yes: Chronic low back pain - Past Surgical History Past Surgical History: Yes: None (unknown) - Alcohol/Substance Use Hx Alcohol Use: No - Smoking History Smoking history: Unknown if ever smoked Have you smoked in the past 12 months: No - Social History Usual Living Arrangement: Custodial ADL: Support Services Occupation: Retired History of Recent Travel: No Home Medications - Allergies Allergies/Adverse Reactions: Allergies Allergy/AdvReac Type Severity Reaction Status Date / Time bee pollen Allergy Unknown Verified 05/02/20 16:18 ceftriaxone Allergy Verified 05/02/20 16:18 Tetanus Vaccines and Toxoid Allergy Verified 05/02/20 16:18 - Home Medications Home Medications: Ambulatory Orders Dronabinol [Marinol -] 2.5 mg PO DAILY capsule 04/10/20 Mirtazapine [Remeron -] 15 mg PO HS tablet 04/10/20 Furosemide [Lasix -] 60 mg PO DAILY tablet 04/29/20 Potassium Chloride [Klor-Con 10] 10 meq PO DAILY #30 tablet.er 04/29/20 predniSONE [Deltasone -] 10 mg PO DAILY tablet 04/29/20 Admelog Solostar See Protocol 05/02/20 Bacitracin - [Bacitracin Topical Ointment -] 1 applic TP BID 05/02/20 Omeprazole Magnesium [Prilosec] 40 mg PO BID 05/02/20 Albuterol 2.5/Ipratropium 0.5 [Duoneb -] 1 amp NEB BID 05/03/20 Silver Sulfadiazine 1% Top Cr [Silvadene -] 1 applic TD BID 05/03/20 Nephrology Consult - Height Height: 5 ft 3 in - Weight Weight: 177 lb 2 oz - BMI Body Mass Index (BMI): 31.4 - Lab Results CBC,BMP: CBC, BMP 05/03/20 11:09 Anion Gap: Anion Gap Anion Gap 11 MMOL/L (8-16) 05/02/20 19:05 - Physical Examination Vital Signs: Vital Signs Temperature 98.2 F 05/03/20 09:46 Pulse Rate 94 H 05/03/20 11:45 Respiratory Rate 21 H 05/03/20 09:46 Blood Pressure 116/51 L 05/03/20 09:46 O2 Sat by Pulse Oximetry (%) 96 05/03/20 11:45 Assessment/Plan CBC, BMP 05/03/20 11:09 05/03/20 11:09 Hypernatremia HF/COPD clinically better CKD renal function- essentially unchanged over baseline but more prerenal Plan- try to hydrate orally may be better tolerated but would give low rate of hypotonic hydration PMHX 84 F, AFib on Eliquis, COPD, dementia, (?) cirrhosis, left breast cancer s/p mastectomy and lymph node resection, and anxiety.
[2020-05-03 13:37] LABS: ALBUMIN 1.9 g/dl (3.4-5.0); BILIRUBIN,TOTAL 0.2 mg/dL (0.2-1); BLOOD UREA NITROGEN 83.2 mg/dL (7-18); CALCIUM 8.4 mg/dL (8.5-10.1); CREATININE 1.7 mg/dL (0.55-1.3); POTASSIUM 3.4 mmol/L (3.5-5.1); TOT PROT 4.9 g/dl (6.4-8.2)
[2020-05-03 13:57] LABS: ANISOCYTOSIS 2+; MACROCYTOSIS 0; PLATELET ESTIMATE NORMAL
[2020-05-03] MEDS ORDERED: METOPROLOL TARTRATE 50 MG TABLET (FP) PO ONE (16:45)
[2020-05-03] MEDS: KCL 10 MEQ IVPB 10 MEQ/100 ML INFUS.BAG IVPB SCH ×3 (18:19→21:09)
[2020-05-03] MEDS: METOPROLOL TARTRATE 5 MG/5 ML VIAL IVPUSH PRN (18:30)
--- NOTE | 2020-05-03 18:46 | PN ---
Progress Note (short form) - Note Progress Note: ID CONSULT DICTATED + BC ? SIGNIFICANCE REPEAT BC VANCOMYCIN X 1 DOSE PENDING C/S
[2020-05-03] MEDS: DEXTROSE 5%-WATER - 1,000 ML IV SCH (21:09)
[2020-05-03] MEDS: MIRTAZAPINE 15 MG TABLET (FP) PO SCH (21:10)
[2020-05-04] MEDS ORDERED: MEROPENEM 1 GM in DEXTROSE 5%-WATER 100 ML IVPB ONE (07:16)
[2020-05-04] MEDS ORDERED: MEROPENEM 1 GM VIAL (RESTRICTED TO ID) IVPB ONE (08:09)
[2020-05-04] MEDS ORDERED: DEXTROSE 5%-WATER 100 ML IVPB ONE ×2 (08:10→17:06)
--- NOTE | 2020-05-04 08:25 | PN ---
Progress Note, Physician - Current Medication List Current Medications: Active Medications Albuterol Sulfate (Ventolin 0.083% Nebulizer Soln -) 1 amp NEB Q4H PRN PRN Reason: SHORT OF BREATH/WHEEZING Apixaban (Eliquis -) 10 mg PO BID [facility] Stop: 05/09/20 10:01 Last Admin: 05/03/20 21:10 Dose: 10 mg Documented by: Collagenase (Santyl -) 1 applic TP DAILY DAREN; Protocol Last Admin: 05/03/20 09:48 Dose: 1 applic Documented by: Dextrose (D5w -) 1,000 mls @ 50 mls/hr IV ASDIR DAREN Last Admin: 05/03/20 21:09 Dose: 50 mls/hr Documented by: Metoprolol Tartrate (Lopressor -) 25 mg PO BID DAREN Metoprolol Tartrate (Lopressor Injection -) 5 mg IVPUSH Q4H PRN PRN Reason: FOR HR > 130 Last Admin: 05/03/20 18:30 Dose: 5 mg Documented by: Mirtazapine (Remeron -) 15 mg PO HS DAREN Last Admin: 05/03/20 21:10 Dose: 15 mg Documented by: Nystatin (Nystop Powder -) 1 applic TP BID DAREN Last Admin: 05/03/20 21:10 Dose: 1 applic Documented by: - Objective Vital Signs: Vital Signs Temperature 98.4 F 05/04/20 05:59 Pulse Rate 121 H 05/04/20 05:59 Respiratory Rate 21 H 05/04/20 05:59 Blood Pressure 93/57 L 05/04/20 05:59 O2 Sat by Pulse Oximetry (%) 97 05/04/20 05:00 Cardiovascular: Yes: S1, S2 Respiratory: Yes: Regular, CTA Bilaterally Gastrointestinal: Yes: Normal Bowel Sounds, Soft. No: Tenderness Labs: CBC, BMP 05/03/20 11:09 05/03/20 11:09 INR, PTT INR 2.11 (0.83-1.09) H 05/03/20 11:09 Problem List - Problems (1) Hypernatremia Assessment/Plan: IVF HOLD DIURETICS RENAL CONSULT FOLLOW LABS Code(s): E87.0 - HYPEROSMOLALITY AND HYPERNATREMIA (2) Sepsis Assessment/Plan: WBC 12 BC Microbiology 05/02/20 16:17 Blood - Peripheral Venous Blood Culture - Preliminary Pending Organism Pending Organism#2 05/02/20 16:29 Blood - Peripheral Venous Blood Culture - Preliminary Pending Organism Pending Organism#2 05/03/20 02:30 Groin - Left Gram Stain - Final ID CONSULT Code(s): A41.9 - SEPSIS, UNSPECIFIED ORGANISM Qualifiers: (3) Afib Assessment/Plan: SAME MEDS Code(s): I48.91 - UNSPECIFIED ATRIAL FIBRILLATION (4) CKD (chronic kidney disease) Assessment/Plan: RENAL ON BOARD Code(s): N18.9 - CHRONIC KIDNEY DISEASE, UNSPECIFIED
[2020-05-04] MEDS ORDERED: VANCOMYCIN 1 GRAM (PRE-DOCKED) 1,000 MG/250 ML BAG IVPB ONE (08:55)
[2020-05-04] MEDS: APIXABAN 5 MG TABLET PO SCH ×2 (09:46→23:15)
[2020-05-04] MEDS: METOPROLOL TARTRATE 25 MG TABLET (FP) PO SCH ×2 (09:46→23:16)
[2020-05-04] MEDS: COLLAGENASE CLOSTRIDIUM HIST. 30 GRAMS TUBE TP SCH (09:48)
[2020-05-04] MEDS: NYSTATIN POWDER 100,000 UNITS/GM - 15 GM TOPICAL POWDER TP SCH ×2 (09:48→23:16)
[2020-05-04 10:54] LABS: BASO % 1.8 % (0-2.0); EOS % 6.6 % (0-4.5); HEMATOCRIT 27.6 % (32.4-45.2); HEMOGLOBIN 8.4 GM/dL (10.7-15.3); LYMPH % 8.5 % (8-40); MCH 26.9 pg (25.7-33.7); MCHC 30.3 g/dl (32.0-36.0); MEAN CELL VOLUME 88.6 fl (80-96); MEAN PLT VOLUME 7.7 fl (7.5-11.1); MONO % 3.9 % (3.8-10.2); NEUT % 79.2 % (42.8-82.8); PLATELET COUNT 233 K/MM3 (134-434); RBC 3.12 M/mm3 (3.60-5.2); RDW 21.3 % (11.6-15.6); WHITE BLOOD COUNT 14.8 K/mm3 (4.0-10.0)
[2020-05-04 11:19] LABS: BLOOD UREA NITROGEN 81.1 mg/dL (7-18); CALCIUM 8.5 mg/dL (8.5-10.1); CREATININE 2.1 mg/dL (0.55-1.3); POTASSIUM 3.8 mmol/L (3.5-5.1)
--- NOTE | 2020-05-04 12:04 | PN ---
Progress Note, Physician History of Present Illness: Pt seen and examined at bedside. She is lethargic. - Current Medication List Current Medications: Active Medications Albuterol Sulfate (Ventolin 0.083% Nebulizer Soln -) 1 amp NEB Q4H PRN PRN Reason: SHORT OF BREATH/WHEEZING Apixaban (Eliquis -) 10 mg PO BID [facility] Stop: 05/09/20 10:01 Last Admin: 05/04/20 09:46 Dose: 10 mg Documented by: Collagenase (Santyl -) 1 applic TP DAILY [facility]; Protocol Last Admin: 05/04/20 09:48 Dose: 1 applic Documented by: Dextrose (D5w -) 1,000 mls @ 50 mls/hr IV ASDIR [facility] Last Admin: 05/03/20 21:09 Dose: 50 mls/hr Documented by: Metoprolol Tartrate (Lopressor -) 25 mg PO BID [facility] Last Admin: 05/04/20 09:46 Dose: 25 mg Documented by: Metoprolol Tartrate (Lopressor Injection -) 5 mg IVPUSH Q4H PRN PRN Reason: FOR HR > 130 Last Admin: 05/03/20 18:30 Dose: 5 mg Documented by: Mirtazapine (Remeron -) 15 mg PO HS [facility] Last Admin: 05/03/20 21:10 Dose: 15 mg Documented by: Nystatin (Nystop Powder -) 1 applic TP BID [facility] Last Admin: 05/04/20 09:48 Dose: 1 applic Documented by: - Objective Vital Signs: Vital Signs Temperature 97.5 F L 05/04/20 08:24 Pulse Rate 88 05/04/20 08:24 Respiratory Rate 16 05/04/20 08:24 Blood Pressure 118/54 L 05/04/20 09:42 O2 Sat by Pulse Oximetry (%) 97 05/04/20 05:00 Constitutional: Yes: Calm Eyes: Yes: Conjunctiva Clear HENT: Yes: Atraumatic Neck: Yes: Supple Cardiovascular: Yes: S1, S2 Respiratory: Yes: On Nasal O2 Gastrointestinal: Yes: Soft Genitourinary: Yes: Muro Present Musculoskeletal: Yes: Muscle Weakness Edema: Yes Neurological: Yes: Confusion Labs: CBC, BMP 05/04/20 10:20 05/04/20 10:20 INR, PTT INR 2.11 (0.83-1.09) H 05/03/20 11:09 Assessment/Plan Current Medications Generic Name Dose Route Start Last Admin Trade Name Freq PRN Reason Stop Dose Admin Albuterol Sulfate 1 amp 05/03/20 13:24 Ventolin 0.083% Nebulizer Soln - NEB Q4H PRN SHORT OF BREATH/WHEEZING Apixaban 10 mg 05/02/20 22:45 05/04/20 09:46 Eliquis - PO 05/09/20 10:01 10 mg BID DAREN Administration Collagenase 1 applic 05/03/20 10:00 05/04/20 09:48 Santyl - TP 1 applic DAILY DAREN Administration Protocol Dextrose 1,000 mls @ 50 mls/hr 05/02/20 20:45 05/03/20 21:09 D5w - IV 50 mls/hr ASDIR DAREN Administration Metoprolol Tartrate 25 mg 05/04/20 10:00 05/04/20 09:46 Lopressor - PO 25 mg BID DAREN Administration Metoprolol Tartrate 5 mg 05/03/20 17:55 05/03/20 18:30 Lopressor Injection - IVPUSH 5 mg Q4H PRN Administration FOR HR > 130 Mirtazapine 15 mg 05/02/20 22:00 05/03/20 21:10 Remeron - PO 15 mg HS DAREN Administration Nystatin 1 applic 05/02/20 22:45 05/04/20 09:48 Nystop Powder - TP 1 applic BID DAREN Administration Impression 1. POLINA 2. hyponatremia 3. altered mental status 4. copd 5. a-fib 6. gerd 7. hypoglycemia 8. chf 9. fluid overload 10. sepsis 11. liver cirrhosis 12. a-fib 13. hypokalemia Plan - diuretics on hold - sodium improved - change fluids from d5w to 1/2 ns to decrease rate of correction - encourage po intake - monitor volume status - monitor renal function
[2020-05-04 12:07] LABS: ANISOCYTOSIS 1+; MACROCYTOSIS 1+; OVALOCYTE 1+; PLATELET ESTIMATE NORMAL
[2020-05-04] MEDS ORDERED: SODIUM CHLORIDE 0.45% 1,000 ML IV SCH (12:15)
--- NOTE | 2020-05-04 13:25 | PN ---
Progress Note, Physician History of Present Illness: AWAKE, CONFUSED OFFERS NO COMPLAINTS WBC SL ELEVATED + AZOTEMIA BC GPCCL WOUND C/S POLYMICROBIAL - Current Medication List Current Medications: Active Medications Albuterol Sulfate (Ventolin 0.083% Nebulizer Soln -) 1 amp NEB Q4H PRN PRN Reason: SHORT OF BREATH/WHEEZING Apixaban (Eliquis -) 10 mg PO BID [facility] Stop: 05/09/20 10:01 Last Admin: 05/04/20 09:46 Dose: 10 mg Documented by: Collagenase (Santyl -) 1 applic TP DAILY [facility]; Protocol Last Admin: 05/04/20 09:48 Dose: 1 applic Documented by: Sodium Chloride (1/2 Normal Saline) 1,000 mls @ 50 mls/hr IV ASDIR DAREN Stop: 05/05/20 12:05 Last Admin: 05/04/20 12:13 Dose: 50 mls/hr Documented by: Meropenem 500 mg/ Dextrose 100 mls @ 200 mls/hr IVPB Q8H-IV DAREN Metoprolol Tartrate (Lopressor -) 25 mg PO BID [facility] Last Admin: 05/04/20 09:46 Dose: 25 mg Documented by: Metoprolol Tartrate (Lopressor Injection -) 5 mg IVPUSH Q4H PRN PRN Reason: FOR HR > 130 Last Admin: 05/03/20 18:30 Dose: 5 mg Documented by: Mirtazapine (Remeron -) 15 mg PO HS DAREN Last Admin: 05/03/20 21:10 Dose: 15 mg Documented by: Nystatin (Nystop Powder -) 1 applic TP BID [facility] Last Admin: 05/04/20 09:48 Dose: 1 applic Documented by: - Objective Vital Signs: Vital Signs Temperature 97.5 F L 05/04/20 08:24 Pulse Rate 88 05/04/20 08:24 Respiratory Rate 16 05/04/20 08:24 Blood Pressure 118/54 L 05/04/20 09:42 O2 Sat by Pulse Oximetry (%) 97 05/04/20 05:00 Constitutional: Yes: No Distress Eyes: Yes: Conjunctiva Clear Cardiovascular: Yes: Regular Rate and Rhythm, S1, S2 Respiratory: Yes: Diminished Gastrointestinal: Yes: Normal Bowel Sounds, Soft, Abdomen, Obese. No: Tenderness Edema: Yes Labs: CBC, BMP 05/04/20 10:20 05/04/20 10:20 INR, PTT INR 2.11 (0.83-1.09) H 05/03/20 11:09 Assessment/Plan +BC R/O STAPH BACTEREMIA WOUND INFECTION LEUKOCYTOSIS AZOTEMIA AWAIT C/S REPEAT BC VANCOMYCIN X 1 MEROPENEM
--- NOTE | 2020-05-04 13:56 | CON.CARD ---
Consult Consult Specialty:: cardiology Referred by:: marvel Reason for Consultation:: tachycardia - History of Present Illness Chief Complaint: sob History of Present Illness: 84 year old female with a pmhx of afib not on ac, copd, dementia, ?cirrrhosis, left breast ca s/p mastectomy, and anxiety recently admitted for sepsis/uti sent from [place] with sob. Patient cannot give history EKG: undetermined rhythm but likely sinus tachycardia, lad, poor r wave progression, low voltage CXR: L effusion vs. atelectasis +WBC UA +3 leuk Na 159 on admission Cr rising to 2.1 now Echocardiogram 01/2020: normal LVEF and no significant valve disease. - History Source History Provided By: Medical Record - Past Medical History Cardio/Vascular: Yes: AFIB, CHF Pulmonary: Yes: COPD, Pneumonia (influenza A pneumonia 01/30) Gastrointestinal: Yes: GERD Hepatobiliary: Yes: Cirrhosis (by 01/30 sonogram), Other (shock liver in 01/30 when intubated with influenza A pneumonia) ...: No Musculoskeletal: Yes: Chronic low back pain - Past Surgical History Past Surgical History: Yes: None (unknown) - Alcohol/Substance Use Hx Alcohol Use: No - Smoking History Smoking history: Unknown if ever smoked Have you smoked in the past 12 months: No - Social History Usual Living Arrangement: Detention ADL: Support Services Occupation: Retired History of Recent Travel: No Home Medications - Allergies Allergies/Adverse Reactions: Allergies Allergy/AdvReac Type Severity Reaction Status Date / Time bee pollen Allergy Unknown Verified 05/02/20 16:18 ceftriaxone Allergy Verified 05/02/20 16:18 Tetanus Vaccines and Toxoid Allergy Verified 05/02/20 16:18 - Home Medications Home Medications: Ambulatory Orders Dronabinol [Marinol -] 2.5 mg PO DAILY capsule 04/10/20 Mirtazapine [Remeron -] 15 mg PO HS tablet 04/10/20 Furosemide [Lasix -] 60 mg PO DAILY tablet 04/29/20 Potassium Chloride [Klor-Con 10] 10 meq PO DAILY #30 tablet.er 04/29/20 predniSONE [Deltasone -] 10 mg PO DAILY tablet 04/29/20 Admelog Solostar See Protocol 05/02/20 Bacitracin - [Bacitracin Topical Ointment -] 1 applic TP BID 05/02/20 Omeprazole Magnesium [Prilosec] 40 mg PO BID 05/02/20 Albuterol 2.5/Ipratropium 0.5 [Duoneb -] 1 amp NEB BID 05/03/20 Silver Sulfadiazine 1% Top Cr [Silvadene -] 1 applic TD BID 05/03/20 Vital Signs: Vital Signs Temperature 97.5 F L 05/04/20 08:24 Pulse Rate 88 05/04/20 08:24 Respiratory Rate 16 05/04/20 08:24 Blood Pressure 118/54 L 05/04/20 09:42 O2 Sat by Pulse Oximetry (%) 97 05/04/20 05:00 Constitutional: Yes: No Distress Neck: Yes: Supple Respiratory: Yes: Rales Gastrointestinal: Yes: Soft Cardiovascular: Yes: Regular Rate and Rhythm JVD: No Carotid Bruit: No Heart Sounds: Yes: S1, S2 Murmur: No: Systolic Murmur Edema: LLE: Trace, RLE: Trace - Other Data Labs, Other Data: CBC, BMP 05/04/20 10:20 05/04/20 10:20 INR, PTT INR 2.11 (0.83-1.09) H 05/03/20 11:09 Imaging - Results Chest X-ray: Report Reviewed EKG: Image Reviewed Problem List - Problems (1) POLINA (acute kidney injury) Code(s): N17.9 - ACUTE KIDNEY FAILURE, UNSPECIFIED (2) Afib Code(s): I48.91 - UNSPECIFIED ATRIAL FIBRILLATION Assessment/Plan 84 year old female with a pmhx of afib not on ac, copd, dementia, ?cirrrhosis, left breast ca s/p mastectomy, and anxiety recently admitted for sepsis/uti sent from [place] with sob. Patient cannot give history EKG: undetermined rhythm but likely sinus tachycardia, lad, poor r wave progression, low voltage CXR: L effusion vs. atelectasis +WBC UA +3 leuk Na 159 on admission Cr rising to 2.1 now Echocardiogram 01/2020: normal LVEF and no significant valve disease. 1) Afib -Patient on antibiotics as per primary team. -Monitor is picking up significant degree of artifact. HR currently 90s. Can continue low dose metoprolol if bp allows. -Currently on high dose apixaban as per primary team covering for possible PE. -Lasix is currently on hold given hyponatremia which is improving and polina. Continue to hold diuretics as per renal team. No further cardiac testing indicated at this time.
--- NOTE | 2020-05-04 15:05 | PN ---
Progress Note (short form) - Note Progress Note: Lethargic but easily arousbale. Did not use NIPPV overnight. Denies CP or SOB. Intake & Output 05/01/20 05/02/20 05/03/20 05/04/20 23:59 23:59 23:59 23:59 Intake Total 550 1520 300 Output Total 420 900 200 Balance 130 620 100 Weight 177 lb 2 oz 177 lb 2 oz Last Vital Signs Temp Pulse Resp BP Pulse Ox 98 F 134 H 16 94/73 97 05/04/20 13:00 05/04/20 13:00 05/04/20 13:00 05/04/20 13:00 05/04/20 05:00 Active Medications Albuterol Sulfate (Ventolin 0.083% Nebulizer Soln -) 1 amp NEB Q4H PRN PRN Reason: SHORT OF BREATH/WHEEZING Apixaban (Eliquis -) 10 mg PO BID [facility] Stop: 05/09/20 10:01 Last Admin: 05/04/20 09:46 Dose: 10 mg Documented by: Collagenase (Santyl -) 1 applic TP DAILY COUNT [facility]CLUDES [facility]; Protocol Last Admin: 05/04/20 09:48 Dose: 1 applic Documented by: Sodium Chloride (1/2 Normal Saline) 1,000 mls @ 50 mls/hr IV ASDIR [facility] Stop: 05/05/20 12:05 Last Admin: 05/04/20 12:13 Dose: 50 mls/hr Documented by: Meropenem 500 mg/ Dextrose 100 mls @ 200 mls/hr IVPB Q8H-IV DAREN Metoprolol Tartrate (Lopressor -) 25 mg PO BID COUNT INCLUDES [facility] Last Admin: 05/04/20 09:46 Dose: 25 mg Documented by: Metoprolol Tartrate (Lopressor Injection -) 5 mg IVPUSH Q4H PRN PRN Reason: FOR HR > 130 Last Admin: 05/03/20 18:30 Dose: 5 mg Documented by: Mirtazapine (Remeron -) 15 mg PO HS COUNT INCLUDES [facility] Last Admin: 05/03/20 21:10 Dose: 15 mg Documented by: Nystatin (Nystop Powder -) 1 applic TP BID D[facility] Last Admin: 05/04/20 09:48 Dose: 1 applic Documented by: Constitutional: Yes: Lethargic but easily arousbale Eyes: Yes: Conjunctiva Clear, EOM Intact HENT: Yes: Atraumatic, Normocephalic Neck: Yes: Supple, Trachea Midline Cardiovascular: Yes: Pulse Irregular Respiratory: Yes: Diminished, On Nasal O2, Rhonchi. No: Accessory Muscle Use, Rales, SOB, SOB on Exertion, Stridor, Tachypnea, Wheezes ...Inspection: Yes: WNL ...Clubbing: No Gastrointestinal: Yes: Normal Bowel Sounds, Soft, Abdomen, Obese Renal/: Yes: WNL Musculoskeletal: Yes: WNL Extremities: Yes: WNL Edema: Yes Peripheral Pulses WNL: Yes Integumentary: Yes: WNL Neurological: Yes: Non-focal ...Motor Strength: WNL Psychiatric: Yes: Oriented Labs: Laboratory Results - last 24 hr 05/02/20 05/04/20 05/04/20 17:30 10:20 10:20 WBC 14.8 H RBC 3.12 L Hgb 8.4 L Hct 27.6 L MCV 88.6 MCH 26.9 MCHC 30.3 L RDW 21.3 H Plt Count 233 MPV 7.7 Absolute Neuts (auto) 11.7 H Neutrophils % 79.2 Neutrophils % (Manual) 76.0 Band Neutrophils % 0.0 Lymphocytes % 8.5 Lymphocytes % (Manual) 9.0 Monocytes % 3.9 Monocytes % (Manual) 6 D Eosinophils % 6.6 H D Eosinophils % (Manual) 8.0 H D Basophils % 1.8 Basophils % (Manual) 1.0 D Myelocytes % (Man) 0 Promyelocytes % (Man) 0 Blast Cells % (Manual) 0 Nucleated RBC % 0 Metamyelocytes 0 Hypochromia 0 Platelet Estimate Normal Polychromasia 1+ Poikilocytosis 1+ Basophilic Stippling 1+ Anisocytosis 1+ Microcytosis 1+ Macrocytosis 1+ Spherocytes 1+ Ovalocytes 1+ Stomatocytes 1+ Sodium 151 H Potassium 3.8 Chloride 111 H Carbon Dioxide 33 H Anion Gap 7 L BUN 81.1 H Creatinine 2.1 H Est GFR (CKD-EPI)AfAm 24.60 Est GFR (CKD-EPI)NonAf 21.23 Random Glucose 132 H Calcium 8.5 COVID-19 ([facility]) Not detected Imaging - Results Chest X-ray: Report Reviewed, Image Reviewed Cat Scan: Report Reviewed, Image Reviewed Problem List - Problems (1) Atelectasis Code(s): J98.11 - ATELECTASIS (2) Pleural effusion Code(s): J90 - PLEURAL EFFUSION, NOT ELSEWHERE CLASSIFIED (3) Afib Code(s): I48.91 - UNSPECIFIED ATRIAL FIBRILLATION (4) Anemia Code(s): D64.9 - ANEMIA, UNSPECIFIED Qualifiers: Chronic kidney disease stage: stage 3 (moderate) (5) CHF exacerbation Code(s): I50.9 - HEART FAILURE, UNSPECIFIED (6) CKD (chronic kidney disease) Code(s): N18.9 - CHRONIC KIDNEY DISEASE, UNSPECIFIED (7) Dementia Code(s): F03.90 - UNSPECIFIED DEMENTIA WITHOUT BEHAVIORAL DISTURBANCE (8) GERD (gastroesophageal reflux disease) Code(s): K21.9 - GASTRO-ESOPHAGEAL REFLUX DISEASE WITHOUT ESOPHAGITIS Assessment/Plan ABX per ID Diuresis as needed Daily weights an Follow I & O VTE prophylaxis NIPPV support as needed BD TX PRN Monitor off systemic steroids Dr Carver Problem List - Problems (1) Atelectasis Code(s): J98.11 - ATELECTASIS (2) Pleural effusion Code(s): J90 - PLEURAL EFFUSION, NOT ELSEWHERE CLASSIFIED (3) Afib Code(s): I48.91 - UNSPECIFIED ATRIAL FIBRILLATION (4) Anemia Code(s): D64.9 - ANEMIA, UNSPECIFIED Qualifiers: Chronic kidney disease stage: stage 3 (moderate) (5) CHF exacerbation Code(s): I50.9 - HEART FAILURE, UNSPECIFIED (6) CKD (chronic kidney disease) Code(s): N18.9 - CHRONIC KIDNEY DISEASE, UNSPECIFIED (7) Dementia Code(s): F03.90 - UNSPECIFIED DEMENTIA WITHOUT BEHAVIORAL DISTURBANCE (8) GERD (gastroesophageal reflux disease) Code(s): K21.9 - GASTRO-ESOPHAGEAL REFLUX DISEASE WITHOUT ESOPHAGITIS
[2020-05-04] MEDS ORDERED: MEROPENEM 500 MG VIAL (RESTRICTED TO ID) IVPB ONE (17:06)
[2020-05-04] MEDS: MEROPENEM 500 MG in DEXTROSE 5%-WATER 100 ML IVPB SCH (17:09)
[2020-05-04] MEDS: METOPROLOL TARTRATE 5 MG/5 ML VIAL IVPUSH PRN (21:46)
[2020-05-04] MEDS: MIRTAZAPINE 15 MG TABLET (FP) PO SCH (23:16)
[2020-05-05] MEDS ORDERED: MEROPENEM 500 MG VIAL (RESTRICTED TO ID) IVPB ONE ×3 (02:21→16:47)
[2020-05-05] MEDS ORDERED: DEXTROSE 5%-WATER 100 ML IVPB ONE ×3 (02:22→16:47)
[2020-05-05] MEDS: MEROPENEM 500 MG in DEXTROSE 5%-WATER 100 ML IVPB SCH ×3 (02:38→17:30)
--- NOTE | 2020-05-05 07:30 | PN ---
Progress Note, Physician History of Present Illness: pulmonary alert,comfortable,sob improving ,o2 sat 94% - Current Medication List Current Medications: Active Medications Albuterol Sulfate (Ventolin 0.083% Nebulizer Soln -) 1 amp NEB Q4H PRN PRN Reason: SHORT OF BREATH/WHEEZING Apixaban (Eliquis -) 10 mg PO BID [facility] Stop: 05/09/20 10:01 Last Admin: 05/04/20 23:15 Dose: 10 mg Documented by: Collagenase (Santyl -) 1 applic TP DAILY [facility]; Protocol Last Admin: 05/04/20 09:48 Dose: 1 applic Documented by: Sodium Chloride (1/2 Normal Saline) 1,000 mls @ 50 mls/hr IV ASDIR [facility] Stop: 05/05/20 12:05 Last Admin: 05/04/20 12:13 Dose: 50 mls/hr Documented by: Meropenem 500 mg/ Dextrose 100 mls @ 200 mls/hr IVPB Q8H-IV DAREN Last Admin: 05/05/20 02:38 Dose: 200 mls/hr Documented by: Metoprolol Tartrate (Lopressor -) 25 mg PO BID [facility] Last Admin: 05/04/20 23:16 Dose: 25 mg Documented by: Metoprolol Tartrate (Lopressor Injection -) 5 mg IVPUSH Q4H PRN PRN Reason: FOR HR > 130 Last Admin: 05/04/20 21:46 Dose: 5 mg Documented by: Mirtazapine (Remeron -) 15 mg PO HS [facility] Last Admin: 05/04/20 23:16 Dose: 15 mg Documented by: Nystatin (Nystop Powder -) 1 applic TP BID [facility] Last Admin: 05/04/20 23:16 Dose: 1 applic Documented by: - Objective Vital Signs: Vital Signs Temperature 98.6 F 05/05/20 02:00 Pulse Rate 104 H 05/05/20 02:00 Respiratory Rate 19 05/05/20 02:00 Blood Pressure 115/78 05/05/20 02:00 O2 Sat by Pulse Oximetry (%) 98 05/05/20 05:00 Constitutional: Yes: Well Nourished, Calm Eyes: Yes: WNL HENT: Yes: WNL Neck: Yes: WNL Cardiovascular: Yes: Pulse Irregular, S1, S2 Respiratory: Yes: Rales (bibasilar rales) Gastrointestinal: Yes: Normal Bowel Sounds, Soft Extremities: Yes: WNL Edema: Yes Labs: CBC, BMP 05/04/20 10:20 05/04/20 10:20 INR, PTT INR 2.11 (0.83-1.09) H 05/03/20 11:09 Assessment/Plan Problem List - Problems (1) Atelectasis Code(s): J98.11 - ATELECTASIS (2) Pleural effusion Code(s): J90 - PLEURAL EFFUSION, NOT ELSEWHERE CLASSIFIED (3) Afib Code(s): I48.91 - UNSPECIFIED ATRIAL FIBRILLATION (4) Anemia Code(s): D64.9 - ANEMIA, UNSPECIFIED Qualifiers: Chronic kidney disease stage: stage 3 (moderate) (5) CHF exacerbation Code(s): I50.9 - HEART FAILURE, UNSPECIFIED (6) CKD (chronic kidney disease) Code(s): N18.9 - CHRONIC KIDNEY DISEASE, UNSPECIFIED (7) Dementia Code(s): F03.90 - UNSPECIFIED DEMENTIA WITHOUT BEHAVIORAL DISTURBANCE (8) GERD (gastroesophageal reflux disease) Code(s): K21.9 - GASTRO-ESOPHAGEAL REFLUX DISEASE WITHOUT ESOPHAGITIS Assessment/Plan ABX per ID Diuresis Daily weights an Follow I & O VTE prophylaxis NIPPV support as needed BD TX PRN DR DOTY Problem List - Problems (1) Atelectasis Code(s): J98.11 - ATELECTASIS (2) Pleural effusion Code(s): J90 - PLEURAL EFFUSION, NOT ELSEWHERE CLASSIFIED (3) Afib Code(s): I48.91 - UNSPECIFIED ATRIAL FIBRILLATION (4) Anemia Code(s): D64.9 - ANEMIA, UNSPECIFIED Qualifiers: Chronic kidney disease stage: stage 3 (moderate) (5) CHF exacerbation Code(s): I50.9 - HEART FAILURE, UNSPECIFIED
[2020-05-05] MEDS: METOPROLOL TARTRATE 25 MG TABLET (FP) PO SCH ×2 (10:11→21:11)
[2020-05-05] MEDS: APIXABAN 5 MG TABLET PO SCH (10:11)
[2020-05-05] MEDS ORDERED: PT OWN MED DRAWER 7, Y5N ONE (10:14)
[2020-05-05] MEDS: NYSTATIN POWDER 100,000 UNITS/GM - 15 GM TOPICAL POWDER TP SCH ×2 (10:41→21:14)
[2020-05-05] MEDS: COLLAGENASE CLOSTRIDIUM HIST. 30 GRAMS TUBE TP SCH (10:41)
--- NOTE | 2020-05-05 12:06 | PN ---
Progress Note, Physician History of Present Illness: Pt seen and examined at bedside. He is awake and appears comfortable. - Current Medication List Current Medications: Active Medications Albuterol Sulfate (Ventolin 0.083% Nebulizer Soln -) 1 amp NEB Q4H PRN PRN Reason: SHORT OF BREATH/WHEEZING Apixaban (Eliquis -) 10 mg PO BID [facility] Stop: 05/09/20 10:01 Last Admin: 05/05/20 10:11 Dose: 10 mg Documented by: Collagenase (Santyl -) 1 applic TP DAILY [facility]; Protocol Last Admin: 05/05/20 10:41 Dose: 1 applic Documented by: Sodium Chloride (1/2 Normal Saline) 1,000 mls @ 50 mls/hr IV ASDIR [facility] Stop: 05/05/20 12:05 Last Admin: 05/04/20 12:13 Dose: 50 mls/hr Documented by: Meropenem 500 mg/ Dextrose 100 mls @ 200 mls/hr IVPB Q8H-IV DAREN Last Admin: 05/05/20 10:56 Dose: 200 mls/hr Documented by: Metoprolol Tartrate (Lopressor -) 25 mg PO BID [facility] Last Admin: 05/05/20 10:11 Dose: 25 mg Documented by: Metoprolol Tartrate (Lopressor Injection -) 5 mg IVPUSH Q4H PRN PRN Reason: FOR HR > 130 Last Admin: 05/04/20 21:46 Dose: 5 mg Documented by: Mirtazapine (Remeron -) 15 mg PO HS [facility] Last Admin: 05/04/20 23:16 Dose: 15 mg Documented by: Nystatin (Nystop Powder -) 1 applic TP BID [facility] Last Admin: 05/05/20 10:41 Dose: 1 applic Documented by: - Objective Vital Signs: Vital Signs Temperature 98.2 F 05/05/20 10:00 Pulse Rate 82 05/05/20 10:00 Respiratory Rate 22 H 05/05/20 10:00 Blood Pressure 111/57 L 05/05/20 10:00 O2 Sat by Pulse Oximetry (%) 95 05/05/20 09:00 Eyes: Yes: Conjunctiva Clear HENT: Yes: Atraumatic Neck: Yes: Supple Cardiovascular: Yes: S1, S2 Respiratory: Yes: On Nasal O2 Gastrointestinal: Yes: Soft Genitourinary: Yes: Incontinence Edema: Yes Neurological: Yes: Confusion Labs: CBC, BMP 05/04/20 10:20 05/04/20 10:20 INR, PTT INR 2.11 (0.83-1.09) H 05/03/20 11:09 Assessment/Plan Current Medications Generic Name Dose Route Start Last Admin Trade Name Freq PRN Reason Stop Dose Admin Albuterol Sulfate 1 amp 05/03/20 13:24 Ventolin 0.083% Nebulizer Soln - NEB Q4H PRN SHORT OF BREATH/WHEEZING Apixaban 10 mg 05/02/20 22:45 05/05/20 10:11 Eliquis - PO 05/09/20 10:01 10 mg BID DAREN Administration Collagenase 1 applic 05/03/20 10:00 05/05/20 10:41 Santyl - TP 1 applic DAILY [facility] Administration Protocol Sodium Chloride 1,000 mls @ 50 mls/hr 05/04/20 12:15 05/04/20 12:13 1/2 Normal Saline IV 05/05/20 12:05 50 mls/hr ASDIR [facility]AR[facility] Administration Meropenem 500 mg/ Dextrose 100 mls @ 200 mls/hr 05/04/20 18:00 05/05/20 10:56 IVPB 200 mls/hr Q8H-IV DAREN Administration Metoprolol Tartrate 25 mg 05/04/20 10:00 05/05/20 10:11 Lopressor - PO 25 mg BID DAREN Administration Metoprolol Tartrate 5 mg 05/03/20 17:55 05/04/20 21:46 Lopressor Injection - IVPUSH 5 mg Q4H PRN Administration FOR HR > 130 Mirtazapine 15 mg 05/02/20 22:00 05/04/20 23:16 Remeron - PO 15 mg HS DAREN Administration Nystatin 1 applic 05/02/20 22:45 05/05/20 10:41 Nystop Powder - TP 1 applic BID DAREN Administration Impression 1. POLINA 2. hyponatremia 3. altered mental status 4. copd 5. a-fib 6. gerd 7. hypoglycemia 8. chf 9. fluid overload 10. sepsis 11. liver cirrhosis 12. a-fib 13. hypokalemia 14. failure to thrive Plan - follow labs - decrease fluids - encourage po intake - monitor volume status - monitor renal function - pt has poor functional status
--- NOTE | 2020-05-05 14:39 | PN ---
Progress Note, Physician Chief Complaint: awake, lethargic, comfortable Sinus on tele with significant artifact History of Present Illness: 84 year old female with a pmhx of afib not on ac, copd, dementia, ?cirrrhosis, left breast ca s/p mastectomy, and anxiety recently admitted for sepsis/uti sent from [place] with sob. Patient cannot give history EKG: undetermined rhythm but likely sinus tachycardia, lad, poor r wave p rogression, low voltage CXR: L effusion vs. atelectasis +WBC UA +3 leuk Na 159 on admission Cr rising to 2.1 now Echocardiogram 01/2020: normal LVEF and no significant valve disease. - Current Medication List Current Medications: Active Medications Albuterol Sulfate (Ventolin 0.083% Nebulizer Soln -) 1 amp NEB Q4H PRN PRN Reason: SHORT OF BREATH/WHEEZING Apixaban (Eliquis -) 10 mg PO BID [facility] Stop: 05/09/20 10:01 Last Admin: 05/05/20 10:11 Dose: 10 mg Documented by: Collagenase (Santyl -) 1 applic TP DAILY [facility]; Protocol Last Admin: 05/05/20 10:41 Dose: 1 applic Documented by: Meropenem 500 mg/ Dextrose 100 mls @ 200 mls/hr IVPB Q8H-IV DAREN Last Admin: 05/05/20 10:56 Dose: 200 mls/hr Documented by: Metoprolol Tartrate (Lopressor -) 25 mg PO BID [facility] Last Admin: 05/05/20 10:11 Dose: 25 mg Documented by: Metoprolol Tartrate (Lopressor Injection -) 5 mg IVPUSH Q4H PRN PRN Reason: FOR HR > 130 Last Admin: 05/04/20 21:46 Dose: 5 mg Documented by: Mirtazapine (Remeron -) 15 mg PO HS [facility] Last Admin: 05/04/20 23:16 Dose: 15 mg Documented by: Nystatin (Nystop Powder -) 1 applic TP BID [facility] Last Admin: 05/05/20 10:41 Dose: 1 applic Documented by: - Objective Vital Signs: Vital Signs Temperature 98.2 F 05/05/20 10:00 Pulse Rate 82 05/05/20 10:00 Respiratory Rate 22 H 05/05/20 10:00 Blood Pressure 111/57 L 05/05/20 10:00 O2 Sat by Pulse Oximetry (%) 95 05/05/20 09:00 Constitutional: Yes: No Distress Neck: Yes: Supple Cardiovascular: Yes: Regular Rate and Rhythm Respiratory: Yes: CTA Bilaterally, Diminished Gastrointestinal: Yes: Soft Edema: LLE: Trace, RLE: Trace Labs: CBC, BMP 05/04/20 10:20 05/04/20 10:20 INR, PTT INR 2.11 (0.83-1.09) H 05/03/20 11:09 Problem List - Problems (1) POLINA (acute kidney injury) Code(s): N17.9 - ACUTE KIDNEY FAILURE, UNSPECIFIED (2) Afib Code(s): I48.91 - UNSPECIFIED ATRIAL FIBRILLATION Assessment/Plan 84 year old female with a pmhx of afib not on ac, copd, dementia, ?cirrrhosis, left breast ca s/p mastectomy, and anxiety recently admitted for sepsis/uti sent from [place] with sob. Patient cannot give history EKG: undetermined rhythm but likely sinus tachycardia, lad, poor r wave progre ssion, low voltage CXR: L effusion vs. atelectasis +WBC UA +3 leuk Na 159 on admission Cr rising to 2.1 now Echocardiogram 01/2020: normal LVEF and no significant valve disease. 1) Afib -Patient on antibiotics as per primary team. 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 Can continue low dose metoprolol if bp allows. -Currently on high dose apixaban as per primary team covering for possible PE. -Lasix is currently on hold given hyponatremia which was improving and polina. F/u chem-7. Diuretics on hold.
--- NOTE | 2020-05-05 15:34 | PN ---
Progress Note, Physician Chief Complaint: POLINA Anemia Hypernatremia Failure to thrive Pleural effusion Bacteremia Left pleural effusion History of Present Illness: NAD lethargic AxOx 3 Poor oral intake - Current Medication List Current Medications: Active Medications Albuterol Sulfate (Ventolin 0.083% Nebulizer Soln -) 1 amp NEB Q4H PRN PRN Reason: SHORT OF BREATH/WHEEZING Apixaban (Eliquis -) 10 mg PO BID [facility] Stop: 05/09/20 10:01 Last Admin: 05/05/20 10:11 Dose: 10 mg Documented by: Collagenase (Santyl -) 1 applic TP DAILY [facility]; Protocol Last Admin: 05/05/20 10:41 Dose: 1 applic Documented by: Meropenem 500 mg/ Dextrose 100 mls @ 200 mls/hr IVPB Q8H-IV [facility] Last Admin: 05/05/20 10:56 Dose: 200 mls/hr Documented by: Metoprolol Tartrate (Lopressor -) 25 mg PO BID [facility] Last Admin: 05/05/20 10:11 Dose: 25 mg Documented by: Metoprolol Tartrate (Lopressor Injection -) 5 mg IVPUSH Q4H PRN PRN Reason: FOR HR > 130 Last Admin: 05/04/20 21:46 Dose: 5 mg Documented by: Mirtazapine (Remeron -) 15 mg PO HS [facility] Last Admin: 05/04/20 23:16 Dose: 15 mg Documented by: Nystatin (Nystop Powder -) 1 applic TP BID [facility] Last Admin: 05/05/20 10:41 Dose: 1 applic Documented by: - Objective Vital Signs: Vital Signs Temperature 98.5 F 05/05/20 14:00 Pulse Rate 68 05/05/20 14:00 Respiratory Rate 20 05/05/20 14:00 Blood Pressure 116/43 L 05/05/20 14:00 O2 Sat by Pulse Oximetry (%) 95 05/05/20 09:00 Constitutional: Yes: Well Nourished, No Distress, Calm Cardiovascular: Yes: Regular Rate and Rhythm Respiratory: Yes: Regular, Diminished Gastrointestinal: Yes: Soft, Abdomen, Obese, Hypoactive Bowel Sounds Musculoskeletal: Yes: Muscle Weakness Extremities: Yes: Other (generalized atrophy) Edema: Yes Edema: LLE: 2+, RLE: 2+ Peripheral Pulses WNL: Yes Neurological: Yes: Alert, Oriented Psychiatric: Yes: Alert, Oriented Labs: CBC, BMP 05/04/20 10:20 05/04/20 10:20 INR, PTT INR 2.11 (0.83-1.09) H 05/03/20 11:09 Problem List - Problems (1) Failure to thrive Assessment/Plan: -Ethics to consider DNR/DNR with 2 PC consent -megastrol -Continue mirtazapine Problems reviewed: Yes Code(s): [id number] - (2) POLINA (acute kidney injury) Assessment/Plan: -Nephrology on board -daily AM labs Problems reviewed: Yes Code(s): N17.9 - ACUTE KIDNEY FAILURE, UNSPECIFIED (3) Afib Assessment/Plan: -chronic, rate controlled -Eliquis discontinued last admission due to possible GI bleed and drop in her H/H -Eliquis restarted upon admission this time -will monitor her H/H closely -Decrease Eliquis dosage to 2.5 mg po bid given pt's age and Elevated Cr. -No concern for PE at this time Problems reviewed: Yes Code(s): I48.91 - UNSPECIFIED ATRIAL FIBRILLATION (4) Anemia Assessment/Plan: -chronic,2/2 to chronic blood loss Problems reviewed: Yes Code(s): D64.9 - ANEMIA, UNSPECIFIED Qualifiers: Chronic kidney disease stage: stage 3 (moderate) (5) Urinary retention Assessment/Plan: -Maintain hilliard catheter Problems reviewed: Yes Code(s): R33.9 - RETENTION OF URINE, UNSPECIFIED (6) Bacteremia Assessment/Plan: -On IV meropenem -ID on board -Afebrile -Cultures: Microbiology 05/04/20 10:20 Blood - Peripheral Venous Blood Culture - Preliminary NO GROWTH OBTAINED AFTER 24 HOURS, INCUBATION TO CONTINUE FOR 4 DAYS. 05/04/20 10:38 Blood - Peripheral Venous Blood Culture - Preliminary NO GROWTH OBTAINED AFTER 24 HOURS, INCUBATION TO CONTINUE FOR 4 DAYS. 05/03/20 02:30 Groin - Left Gram Stain - Final 05/03/20 02:30 Groin - Left Wound Culture - Final Pseudomonas Aeruginosa Proteus Species Lactose Fermenting Neg Bacilli Presumptive Mrsa (Pbp2a Pos) Group D Strep Or Entero Coccus Group D Strep Or Entero Coccus#2 05/02/20 16:29 Blood - Peripheral Venous Blood Culture - Preliminary Mr S Aureus Staphylococcus Coagulase Neg 05/02/20 16:17 Blood - Peripheral Venous Blood Culture - Preliminary Staphylococcus Coagulase Neg 05/02/20 16:45 Urine - Urine Hilliard Urine Culture - Final Group D Strep Or Entero Coccus -Vanco on hold, elevated Vanco levels today Problems reviewed: Yes Code(s): R78.81 - BACTEREMIA Assessment/Plan See problem list
[2020-05-05] MEDS: MIRTAZAPINE 15 MG TABLET (FP) PO SCH (21:11)
[2020-05-05] MEDS: APIXABAN 2.5 MG TABLET PO SCH (21:11)
--- NOTE | 2020-05-05 23:47 | PN ---
Progress Note, Physician History of Present Illness: LETHARGIC, CONFUSED OFFERS NO COMPLAINTS WBC SL ELEVATED + AZOTEMIA BC GPCCL VANCO LEVEL NOTED WOUND C/S POLYMICROBIAL - Current Medication List Current Medications: Active Medications Albuterol Sulfate (Ventolin 0.083% Nebulizer Soln -) 1 amp NEB Q4H PRN PRN Reason: SHORT OF BREATH/WHEEZING Apixaban (Eliquis -) 2.5 mg PO BID [facility] Last Admin: 05/05/20 21:11 Dose: 2.5 mg Documented by: Collagenase (Santyl -) 1 applic TP DAILY [facility]; Protocol Last Admin: 05/05/20 10:41 Dose: 1 applic Documented by: Meropenem 500 mg/ Dextrose 100 mls @ 200 mls/hr IVPB Q8H-IV [facility] Last Admin: 05/05/20 17:30 Dose: 200 mls/hr Documented by: Metoprolol Tartrate (Lopressor -) 25 mg PO BID [facility] Last Admin: 05/05/20 21:11 Dose: 25 mg Documented by: Metoprolol Tartrate (Lopressor Injection -) 5 mg IVPUSH Q4H PRN PRN Reason: FOR HR > 130 Last Admin: 05/04/20 21:46 Dose: 5 mg Documented by: Mirtazapine (Remeron -) 15 mg PO HS [facility] Last Admin: 05/05/20 21:11 Dose: 15 mg Documented by: Nystatin (Nystop Powder -) 1 applic TP BID [facility] Last Admin: 05/05/20 21:14 Dose: 1 applic Documented by: - Objective Vital Signs: Vital Signs Temperature 96.8 F L 05/05/20 22:00 Pulse Rate 89 05/05/20 22:00 Respiratory Rate 20 05/05/20 22:00 Blood Pressure 109/62 05/05/20 22:00 O2 Sat by Pulse Oximetry (%) 95 05/05/20 20:51 Constitutional: Yes: No Distress, Obese Cardiovascular: Yes: Regular Rate and Rhythm, S1, S2 Respiratory: Yes: Diminished Gastrointestinal: Yes: Normal Bowel Sounds, Soft, Abdomen, Obese Labs: CBC, BMP 05/04/20 10:20 05/04/20 10:20 INR, PTT INR 2.11 (0.83-1.09) H 05/03/20 11:09 Assessment/Plan +BC R/O STAPH BACTEREMIA WOUND INFECTION LEUKOCYTOSIS AZOTEMIA AWAIT C/S REPEAT BC HOLD VANCOMYCIN MEROPENEM
[2020-05-06] MEDS ORDERED: MEROPENEM 500 MG VIAL (RESTRICTED TO ID) IVPB ONE ×2 (01:07→16:53)
[2020-05-06] MEDS ORDERED: DEXTROSE 5%-WATER 100 ML IVPB ONE ×2 (01:07→16:53)
[2020-05-06] MEDS: MEROPENEM 500 MG in DEXTROSE 5%-WATER 100 ML IVPB SCH ×3 (01:11→17:24)
--- NOTE | 2020-05-06 09:42 | PN ---
Progress Note, Physician - Current Medication List Current Medications: Active Medications Albuterol Sulfate (Ventolin 0.083% Nebulizer Soln -) 1 amp NEB Q4H PRN PRN Reason: SHORT OF BREATH/WHEEZING Apixaban (Eliquis -) 2.5 mg PO BID [facility] Last Admin: 05/05/20 21:11 Dose: 2.5 mg Documented by: Collagenase (Santyl -) 1 applic TP DAILY [facility]; Protocol Last Admin: 05/05/20 10:41 Dose: 1 applic Documented by: Meropenem 500 mg/ Dextrose 100 mls @ 200 mls/hr IVPB Q8H-IV [facility] Last Admin: 05/06/20 01:11 Dose: 200 mls/hr Documented by: Metoprolol Tartrate (Lopressor -) 25 mg PO BID [facility] Last Admin: 05/05/20 21:11 Dose: 25 mg Documented by: Metoprolol Tartrate (Lopressor Injection -) 5 mg IVPUSH Q4H PRN PRN Reason: FOR HR > 130 Last Admin: 05/04/20 21:46 Dose: 5 mg Documented by: Mirtazapine (Remeron -) 15 mg PO HS [facility] Last Admin: 05/05/20 21:11 Dose: 15 mg Documented by: Nystatin (Nystop Powder -) 1 applic TP BID [facility] Last Admin: 05/05/20 21:14 Dose: 1 applic Documented by: - Objective Vital Signs: Vital Signs Temperature 98.6 F 05/06/20 06:00 Pulse Rate 94 H 05/06/20 06:00 Respiratory Rate 20 05/06/20 06:00 Blood Pressure 96/54 L 05/06/20 06:00 O2 Sat by Pulse Oximetry (%) 97 05/06/20 04:30 Cardiovascular: Yes: S1, S2 Respiratory: Yes: CTA Bilaterally, On Nasal O2 Gastrointestinal: Yes: Normal Bowel Sounds, Soft Edema: Yes Labs: CBC, BMP 05/04/20 10:20 05/04/20 10:20 INR, PTT INR 2.11 (0.83-1.09) H 05/03/20 11:09 Problem List - Problems (1) Hypernatremia Code(s): E87.0 - HYPEROSMOLALITY AND HYPERNATREMIA (2) Sepsis Code(s): A41.9 - SEPSIS, UNSPECIFIED ORGANISM Qualifiers: (3) Afib Code(s): I48.91 - UNSPECIFIED ATRIAL FIBRILLATION (4) CKD (chronic kidney disease) Code(s): N18.9 - CHRONIC KIDNEY DISEASE, UNSPECIFIED Assessment/Plan - Problems (1) Failure to thrive Assessment/Plan: -Ethics to consider DNR/DNR with 2 PC consent -megastrol -Continue mirtazapine Problems reviewed: Yes Code(s): [id number] - (2) POLINA (acute kidney injury) Assessment/Plan: -Nephrology on board -daily AM labs Problems reviewed: Yes Code(s): N17.9 - ACUTE KIDNEY FAILURE, UNSPECIFIED (3) Afib Assessment/Plan: -chronic, rate controlled -Eliquis discontinued last admission due to possible GI bleed and drop in her H/H -Eliquis restarted upon admission this time -will monitor her H/H closely -Decrease Eliquis dosage to 2.5 mg po bid given pt's age and Elevated Cr. -No concern for PE at this time Problems reviewed: Yes Code(s): I48.91 - UNSPECIFIED ATRIAL FIBRILLATION (4) Anemia Assessment/Plan: -chronic,2/2 to chronic blood loss Problems reviewed: Yes Code(s): D64.9 - ANEMIA, UNSPECIFIED Qualifiers: Chronic kidney disease stage: stage 3 (moderate) (5) Urinary retention Assessment/Plan: -Maintain hilliard catheter Problems reviewed: Yes Code(s): R33.9 - RETENTION OF URINE, UNSPECIFIED (6) Bacteremia Assessment/Plan: -On IV meropenem -ID on board -Afebrile -Cultures: Microbiology 05/04/20 10:20 Blood - Peripheral Venous Blood Culture - Preliminary NO GROWTH OBTAINED AFTER 24 HOURS, INCUBATION TO CONTINUE FOR 4 DAYS. 05/04/20 10:38 Blood - Peripheral Venous Blood Culture - Preliminary NO GROWTH OBTAINED AFTER 24 HOURS, INCUBATION TO CONTINUE FOR 4 DAYS. 05/03/20 02:30 Groin - Left Gram Stain - Final 05/03/20 02:30 Groin - Left Wound Culture - Final Pseudomonas Aeruginosa Proteus Species Lactose Fermenting Neg Bacilli Presumptive Mrsa (Pbp2a Pos) Group D Strep Or Entero Coccus Group D Strep Or Entero Coccus#2 05/02/20 16:29 Blood - Peripheral Venous Blood Culture - Preliminary Mr S Aureus Staphylococcus Coagulase Neg 05/02/20 16:17 Blood - Peripheral Venous Blood Culture - Preliminary Staphylococcus Coagulase Neg 05/02/20 16:45 Urine - Urine Hilliard Urine Culture - Final Group D Strep Or Entero Coccus -Vanco on hold, elevated Vanco levels today Problems reviewed: Yes Code(s): R78.81 - BACTEREMIA
[2020-05-06] MEDS: APIXABAN 2.5 MG TABLET PO SCH ×2 (09:53→22:21)
[2020-05-06] MEDS: METOPROLOL TARTRATE 25 MG TABLET (FP) PO SCH ×2 (09:53→22:21)
[2020-05-06 10:39] LABS: BASO % 1.3 % (0-2.0); EOS % 8.7 % (0-4.5); HEMATOCRIT 26.6 % (32.4-45.2); HEMOGLOBIN 8.1 GM/dL (10.7-15.3); LYMPH % 8.1 % (8-40); MCH 26.9 pg (25.7-33.7); MCHC 30.3 g/dl (32.0-36.0); MEAN CELL VOLUME 88.8 fl (80-96); MEAN PLT VOLUME 8.3 fl (7.5-11.1); MONO % 3.4 % (3.8-10.2); NEUT % 78.5 % (42.8-82.8); PLATELET COUNT 171 K/MM3 (134-434); RBC 2.99 M/mm3 (3.60-5.2); RDW 20.7 % (11.6-15.6); WHITE BLOOD COUNT 12.7 K/mm3 (4.0-10.0)
[2020-05-06 11:08] LABS: ALBUMIN 1.7 g/dl (3.4-5.0); BILIRUBIN,TOTAL 0.5 mg/dL (0.2-1); BLOOD UREA NITROGEN 81.1 mg/dL (7-18); CALCIUM 8.2 mg/dL (8.5-10.1); CREATININE 2.1 mg/dL (0.55-1.3); POTASSIUM 3.7 mmol/L (3.5-5.1); TOT PROT 4.6 g/dl (6.4-8.2)
[2020-05-06] MEDS: NYSTATIN POWDER 100,000 UNITS/GM - 15 GM TOPICAL POWDER TP SCH ×2 (11:53→22:24)
[2020-05-06] MEDS: COLLAGENASE CLOSTRIDIUM HIST. 30 GRAMS TUBE TP SCH (11:53)
--- NOTE | 2020-05-06 11:59 | PN ---
Progress Note, Physician History of Present Illness: Pt seen and examined at bedside. PO intake is improved however does need assistance. - Current Medication List Current Medications: Active Medications Albuterol Sulfate (Ventolin 0.083% Nebulizer Soln -) 1 amp NEB Q4H PRN PRN Reason: SHORT OF BREATH/WHEEZING Apixaban (Eliquis -) 2.5 mg PO BID [facility] Last Admin: 05/06/20 09:53 Dose: 2.5 mg Documented by: Collagenase (Santyl -) 1 applic TP DAILY [facility]; Protocol Last Admin: 05/06/20 11:53 Dose: 1 applic Documented by: Meropenem 500 mg/ Dextrose 100 mls @ 200 mls/hr IVPB Q8H-IV [facility] Last Admin: 05/06/20 11:53 Dose: 200 mls/hr Documented by: Metoprolol Tartrate (Lopressor -) 25 mg PO BID [facility] Last Admin: 05/06/20 09:53 Dose: 25 mg Documented by: Metoprolol Tartrate (Lopressor Injection -) 5 mg IVPUSH Q4H PRN PRN Reason: FOR HR > 130 Last Admin: 05/04/20 21:46 Dose: 5 mg Documented by: Mirtazapine (Remeron -) 15 mg PO HS [facility] Last Admin: 05/05/20 21:11 Dose: 15 mg Documented by: Nystatin (Nystop Powder -) 1 applic TP BID [facility] Last Admin: 05/06/20 11:53 Dose: 1 applic Documented by: - Objective Vital Signs: Vital Signs Temperature 98.4 F 05/06/20 10:00 Pulse Rate 85 05/06/20 10:00 Respiratory Rate 20 05/06/20 10:00 Blood Pressure 102/51 L 05/06/20 10:00 O2 Sat by Pulse Oximetry (%) 98 05/06/20 09:00 Constitutional: Yes: Calm Eyes: Yes: Conjunctiva Clear HENT: Yes: Atraumatic Neck: Yes: Supple Cardiovascular: Yes: S1, S2 Respiratory: Yes: On Nasal O2 Genitourinary: Yes: Incontinence Musculoskeletal: Yes: Muscle Weakness Edema: Yes Edema: LUE: 1+, RUE: 1+, LLE: 2+, RLE: 2+ Neurological: Yes: Confusion Labs: CBC, BMP 05/06/20 09:45 05/06/20 09:45 INR, PTT INR 2.11 (0.83-1.09) H 05/03/20 11:09 Assessment/Plan Current Medications Generic Name Dose Route Start Last Admin Trade Name Freq PRN Reason Stop Dose Admin Albuterol Sulfate 1 amp 05/03/20 13:24 Ventolin 0.083% Nebulizer Soln - NEB Q4H PRN SHORT OF BREATH/WHEEZING Apixaban 2.5 mg 05/05/20 22:00 05/06/20 09:53 Eliquis - PO 2.5 mg BID [facility] Administration Collagenase 1 applic 05/03/20 10:00 05/06/20 11:53 Santyl - TP 1 applic DAILY [facility] Administration Protocol Meropenem 500 mg/ Dextrose 100 mls @ 200 mls/hr 05/04/20 18:00 05/06/20 11:53 IVPB 200 mls/hr Q8H-IV [facility] Administration Metoprolol Tartrate 25 mg 05/04/20 10:00 05/06/20 09:53 Lopressor - PO 25 mg BID [facility] Administration Metoprolol Tartrate 5 mg 05/03/20 17:55 05/04/20 21:46 Lopressor Injection - IVPUSH 5 mg Q4H PRN Administration FOR HR > 130 Mirtazapine 15 mg 05/02/20 22:00 05/05/20 21:11 Remeron - PO 15 mg HS [facility] Administration Nystatin 1 applic 05/02/20 22:45 05/06/20 11:53 Nystop Powder - TP 1 applic BID [facility] Administration Impression 1. POLINA 2. hyponatremia 3. altered mental status 4. copd 5. a-fib 6. gerd 7. hypoglycemia 8. chf 9. fluid overload 10. sepsis 11. liver cirrhosis 12. a-fib 13. hypokalemia 14. 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
[2020-05-06] MEDS: FUROSEMIDE 40 MG TABLET (FP) PO SCH (12:22)
--- NOTE | 2020-05-06 13:26 | PN ---
Progress Note (short form) - Note Progress Note: NAD on 50% VM O2. Apparently did not use NIPPV overnight. Denies CP or SOB. Intake & Output 05/03/20 05/04/20 05/05/20 05/06/20 23:59 23:59 23:59 23:59 Intake Total 3979 958 3820 Output Total 900 200 200 300 Balance 180 823 9740 -300 Weight 177 lb 2 oz 177 lb Last Vital Signs Temp Pulse Resp BP Pulse Ox 98.4 F 85 20 102/51 L 100 05/06/20 10:00 05/06/20 10:00 05/06/20 10:00 05/06/20 10:00 05/06/20 12:12 Active Medications Albuterol Sulfate (Ventolin 0.083% Nebulizer Soln -) 1 amp NEB Q4H PRN PRN Reason: SHORT OF BREATH/WHEEZING Apixaban (Eliquis -) 2.5 mg PO BID [facility] Last Admin: 05/06/20 09:53 Dose: 2.5 mg Documented by: Collagenase (Santyl -) 1 applic TP DAILY [facility]; Protocol Last Admin: 05/06/20 11:53 Dose: 1 applic Documented by: Furosemide (Lasix -) 40 mg PO DAILY [facility] Last Admin: 05/06/20 12:22 Dose: 40 mg Documented by: Meropenem 500 mg/ Dextrose 100 mls @ 200 mls/hr IVPB Q8H-IV [facility] Last Admin: 05/06/20 11:53 Dose: 200 mls/hr Documented by: Metoprolol Tartrate (Lopressor -) 25 mg PO BID [facility] Last Admin: 05/06/20 09:53 Dose: 25 mg Documented by: Metoprolol Tartrate (Lopressor Injection -) 5 mg IVPUSH Q4H PRN PRN Reason: FOR HR > 130 Last Admin: 05/04/20 21:46 Dose: 5 mg Documented by: Mirtazapine (Remeron -) 15 mg PO HS [facility] Last Admin: 05/05/20 21:11 Dose: 15 mg Documented by: Nystatin (Nystop Powder -) 1 applic TP BID [facility] Last Admin: 05/06/20 11:53 Dose: 1 applic Documented by: Constitutional: Yes: NAD on 50% VM Eyes: Yes: Conjunctiva Clear, EOM Intact HENT: Yes: Atraumatic, Normocephalic Neck: Yes: Supple, Trachea Midline Cardiovascular: Yes: Pulse Irregular Respiratory: Yes: Diminished, On Nasal O2, Rhonchi. No: Accessory Muscle Use, Rales, SOB, SOB on Exertion, Stridor, Tachypnea, Wheezes ...Inspection: Yes: WNL ...Clubbing: No Gastrointestinal: Yes: Normal Bowel Sounds, Soft, Abdomen, Obese Renal/: Yes: WNL Musculoskeletal: Yes: WNL Extremities: Yes: WNL Edema: Yes Peripheral Pulses WNL: Yes Integumentary: Yes: WNL Neurological: Yes: Non-focal ...Motor Strength: WNL Psychiatric: Yes: Oriented Labs: Laboratory Results - last 24 hr 05/06/20 05/06/20 05/06/20 09:45 09:45 09:45 WBC 12.7 H RBC 2.99 L Hgb 8.1 L Hct 26.6 L MCV 88.8 MCH 26.9 MCHC 30.3 L RDW 20.7 H Plt Count 171 D MPV 8.3 Absolute Neuts (auto) 10.0 H Neutrophils % 78.5 Lymphocytes % 8.1 Monocytes % 3.4 L Eosinophils % 8.7 H Basophils % 1.3 Nucleated RBC % 0 Sodium 146 H Potassium 3.7 Chloride 109 H Carbon Dioxide 30 Anion Gap 7 L BUN 81.1 H Creatinine 2.1 H Est GFR (CKD-EPI)AfAm 24.60 Est GFR (CKD-EPI)NonAf 21.23 Random Glucose 99 Calcium 8.2 L Total Bilirubin 0.5 AST 23 ALT 19 Alkaline Phosphatase 156 H Total Protein 4.6 L Albumin 1.7 L Random Vancomycin 31.5 H* Imaging - Results Chest X-ray: Report Reviewed, Image Reviewed Cat Scan: Report Reviewed, Image Reviewed Problem List - Problems (1) Atelectasis Code(s): J98.11 - ATELECTASIS (2) Pleural effusion Code(s): J90 - PLEURAL EFFUSION, NOT ELSEWHERE CLASSIFIED (3) Afib Code(s): I48.91 - UNSPECIFIED ATRIAL FIBRILLATION (4) Anemia Code(s): D64.9 - ANEMIA, UNSPECIFIED Qualifiers: Chronic kidney disease stage: stage 3 (moderate) (5) CHF exacerbation Code(s): I50.9 - HEART FAILURE, UNSPECIFIED (6) CKD (chronic kidney disease) Code(s): N18.9 - CHRONIC KIDNEY DISEASE, UNSPECIFIED (7) Dementia Code(s): F03.90 - UNSPECIFIED DEMENTIA WITHOUT BEHAVIORAL DISTURBANCE (8) GERD (gastroesophageal reflux disease) Code(s): K21.9 - GASTRO-ESOPHAGEAL REFLUX DISEASE WITHOUT ESOPHAGITIS Assessment/Plan NIPPV as needed VM O2 as needed ABX per ID Diuresis as needed Daily weights an Follow I & O VTE prophylaxis NIPPV support as needed BD TX PRN Monitor off systemic steroids Dr Carver Problem List - Problems (1) Atelectasis Code(s): J98.11 - ATELECTASIS (2) Pleural effusion Code(s): J90 - PLEURAL EFFUSION, NOT ELSEWHERE CLASSIFIED (3) Afib Code(s): I48.91 - UNSPECIFIED ATRIAL FIBRILLATION (4) Anemia Code(s): D64.9 - ANEMIA, UNSPECIFIED Qualifiers: Chronic kidney disease stage: stage 3 (moderate) (5) CHF exacerbation Code(s): I50.9 - HEART FAILURE, UNSPECIFIED (6) CKD (chronic kidney disease) Code(s): N18.9 - CHRONIC KIDNEY DISEASE, UNSPECIFIED (7) Dementia Code(s): F03.90 - UNSPECIFIED DEMENTIA WITHOUT BEHAVIORAL DISTURBANCE (8) GERD (gastroesophageal reflux disease) Code(s): K21.9 - GASTRO-ESOPHAGEAL REFLUX DISEASE WITHOUT ESOPHAGITIS
--- NOTE | 2020-05-06 14:36 | PN ---
Progress Note, Physician Chief Complaint: No events on tele Lying in bed No distress with venti mask History of Present Illness: 84 year old female with a pmhx of afib not on ac, copd, dementia, ?cirrrhosis, left breast ca s/p mastectomy, and anxiety recently admitted for sepsis/uti sent from [place] with sob. Patient cannot give history EKG: undetermined rhythm but likely sinus tachycardia, lad, poor r wave progression, low voltage CXR: L effusion vs. atelectasis +WBC UA +3 leuk Na 159 on admission Cr rising to 2.1 now Echocardiogram 01/2020: normal LVEF and no significant valve disease. - Current Medication List Current Medications: Active Medications Albuterol Sulfate (Ventolin 0.083% Nebulizer Soln -) 1 amp NEB Q4H PRN PRN Reason: SHORT OF BREATH/WHEEZING Apixaban (Eliquis -) 2.5 mg PO BID [facility] Last Admin: 05/06/20 09:53 Dose: 2.5 mg Documented by: Collagenase (Santyl -) 1 applic TP DAILY [facility]; Protocol Last Admin: 05/06/20 11:53 Dose: 1 applic Documented by: Furosemide (Lasix -) 40 mg PO DAILY [facility] Last Admin: 05/06/20 12:22 Dose: 40 mg Documented by: Meropenem 500 mg/ Dextrose 100 mls @ 200 mls/hr IVPB Q8H-IV [facility] Last Admin: 05/06/20 11:53 Dose: 200 mls/hr Documented by: Metoprolol Tartrate (Lopressor -) 25 mg PO BID [facility] Last Admin: 05/06/20 09:53 Dose: 25 mg Documented by: Metoprolol Tartrate (Lopressor Injection -) 5 mg IVPUSH Q4H PRN PRN Reason: FOR HR > 130 Last Admin: 05/04/20 21:46 Dose: 5 mg Documented by: Mirtazapine (Remeron -) 15 mg PO HS [facility] Last Admin: 05/05/20 21:11 Dose: 15 mg Documented by: Nystatin (Nystop Powder -) 1 applic TP BID [facility] Last Admin: 05/06/20 11:53 Dose: 1 applic Documented by: - Objective Vital Signs: Vital Signs Temperature 98.4 F 05/06/20 10:00 Pulse Rate 85 05/06/20 10:00 Respiratory Rate 20 05/06/20 10:00 Blood Pressure 102/51 L 05/06/20 10:00 O2 Sat by Pulse Oximetry (%) 100 05/06/20 12:12 Neck: Yes: Supple Cardiovascular: Yes: Regular Rate and Rhythm. No: JVD Respiratory: Yes: Diminished Gastrointestinal: Yes: Soft Edema: LLE: 1+, RLE: 1+ Labs: CBC, BMP 05/06/20 09:45 05/06/20 09:45 INR, PTT INR 2.11 (0.83-1.09) H 05/03/20 11:09 Problem List - Problems (1) POLINA (acute kidney injury) Code(s): N17.9 - ACUTE KIDNEY FAILURE, UNSPECIFIED (2) Afib Code(s): I48.91 - UNSPECIFIED ATRIAL FIBRILLATION Assessment/Plan 84 year old female with a pmhx of afib not on ac, copd, dementia, ?cirrrhosis, left breast ca s/p mastectomy, and anxiety recently admitted for sepsis/uti sent from [place] with sob. Patient cannot give history EKG: undetermined rhythm but likely sinus tachycardia, lad, poor r wave progression, low voltage CXR: L effusion vs. atelectasis +WBC UA +3 leuk Na 159 on admission Cr rising to 2.1 now Echocardiogram 01/2020: normal LVEF and no significant valve disease. 1) Afib -Patient on antibiotics as per primary team. 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 Would consider stopping campus monitor Can continue low dose metoprolol if bp allows. -On apixaban -Hyponatremia much improved. Restarting on po furosemide to assist with volume control
[2020-05-06 14:44] LABS: ANISOCYTOSIS 1+; MACROCYTOSIS 1+; TARGET CELLS 1+
[2020-05-06] MEDS: MIRTAZAPINE 15 MG TABLET (FP) PO SCH (22:21)
[2020-05-07] MEDS ORDERED: MEROPENEM 500 MG VIAL (RESTRICTED TO ID) IVPB ONE ×2 (06:49→10:40)
[2020-05-07] MEDS ORDERED: DEXTROSE 5%-WATER 100 ML IVPB ONE ×2 (06:50→10:41)
[2020-05-07] MEDS: MEROPENEM 500 MG in DEXTROSE 5%-WATER 100 ML IVPB SCH ×3 (06:51→19:13)
[2020-05-07 07:54] LABS: ALBUMIN 1.6 g/dl (3.4-5.0); BLOOD UREA NITROGEN 76.6 mg/dL (7-18); POTASSIUM 4.1 mmol/L (3.5-5.1)
[2020-05-07 07:59] LABS: CREATININE 2.2 mg/dL (0.55-1.3)
[2020-05-07 08:00] LABS: BILIRUBIN,TOTAL 0.6 mg/dL (0.2-1); TOT PROT 4.5 g/dl (6.4-8.2)
--- NOTE | 2020-05-07 08:26 | PN ---
Progress Note, Physician - Current Medication List Current Medications: Active Medications Albuterol Sulfate (Ventolin 0.083% Nebulizer Soln -) 1 amp NEB Q4H PRN PRN Reason: SHORT OF BREATH/WHEEZING Apixaban (Eliquis -) 2.5 mg PO BID [facility] Last Admin: 05/06/20 22:21 Dose: 2.5 mg Documented by: Collagenase (Santyl -) 1 applic TP DAILY [facility]; Protocol Last Admin: 05/06/20 11:53 Dose: 1 applic Documented by: Furosemide (Lasix -) 40 mg PO DAILY [facility] Last Admin: 05/06/20 12:22 Dose: 40 mg Documented by: Meropenem 500 mg/ Dextrose 100 mls @ 200 mls/hr IVPB Q8H-IV [facility] Last Admin: 05/07/20 06:51 Dose: 200 mls/hr Documented by: Metoprolol Tartrate (Lopressor -) 25 mg PO BID [facility] Last Admin: 05/06/20 22:21 Dose: 25 mg Documented by: Metoprolol Tartrate (Lopressor Injection -) 5 mg IVPUSH Q4H PRN PRN Reason: FOR HR > 130 Last Admin: 05/04/20 21:46 Dose: 5 mg Documented by: Mirtazapine (Remeron -) 15 mg PO HS [facility] Last Admin: 05/06/20 22:21 Dose: 15 mg Documented by: Nystatin (Nystop Powder -) 1 applic TP BID [facility] Last Admin: 05/06/20 22:24 Dose: 1 applic Documented by: - Objective Vital Signs: Vital Signs Temperature 98.4 F 05/07/20 06:00 Pulse Rate 91 H 05/07/20 06:00 Respiratory Rate 20 05/07/20 06:00 Blood Pressure 123/59 L 05/07/20 06:00 O2 Sat by Pulse Oximetry (%) 100 05/06/20 12:12 Cardiovascular: Yes: S1, S2 Respiratory: Yes: On BiPap Gastrointestinal: Yes: Normal Bowel Sounds, Soft Labs: CBC, BMP 05/06/20 09:45 05/07/20 06:00 INR, PTT INR 2.11 (0.83-1.09) H 05/03/20 11:09 Problem List - Problems (1) Hypernatremia Code(s): E87.0 - HYPEROSMOLALITY AND HYPERNATREMIA (2) Sepsis Code(s): A41.9 - SEPSIS, UNSPECIFIED ORGANISM Qualifiers: (3) Afib Code(s): I48.91 - UNSPECIFIED ATRIAL FIBRILLATION (4) CKD (chronic kidney disease) Code(s): N18.9 - CHRONIC KIDNEY DISEASE, UNSPECIFIED Assessment/Plan - Problems (1) Failure to thrive Assessment/Plan: -Ethics to consider DNR/DNR with 2 PC consent -megastrol -Continue mirtazapine Problems reviewed: Yes Code(s): [id number] - (2) POLINA (acute kidney injury) Assessment/Plan: -Nephrology on board -daily AM labs Problems reviewed: Yes Code(s): N17.9 - ACUTE KIDNEY FAILURE, UNSPECIFIED (3) Afib Assessment/Plan: -chronic, rate controlled -Eliquis discontinued last admission due to possible GI bleed and drop in her H/H -Eliquis restarted upon admission this time -will monitor her H/H closely -Decrease Eliquis dosage to 2.5 mg po bid given pt's age and Elevated Cr. -No concern for PE at this time Problems reviewed: Yes Code(s): I48.91 - UNSPECIFIED ATRIAL FIBRILLATION (4) Anemia Assessment/Plan: -chronic,2/2 to chronic blood loss Problems reviewed: Yes Code(s): D64.9 - ANEMIA, UNSPECIFIED Qualifiers: Chronic kidney disease stage: stage 3 (moderate) (5) Urinary retention Assessment/Plan: -Maintain hilliard catheter Problems reviewed: Yes Code(s): R33.9 - RETENTION OF URINE, UNSPECIFIED (6) Bacteremia Assessment/Plan: -On IV meropenem -ID on board -Afebrile -Cultures: Microbiology 05/04/20 10:20 Blood - Peripheral Venous Blood Culture - Preliminary NO GROWTH OBTAINED AFTER 24 HOURS, INCUBATION TO CONTINUE FOR 4 DAYS. 05/04/20 10:38 Blood - Peripheral Venous Blood Culture - Preliminary NO GROWTH OBTAINED AFTER 24 HOURS, INCUBATION TO CONTINUE FOR 4 DAYS. 05/03/20 02:30 Groin - Left Gram Stain - Final 05/03/20 02:30 Groin - Left Wound Culture - Final Pseudomonas Aeruginosa Proteus Species Lactose Fermenting Neg Bacilli Presumptive Mrsa (Pbp2a Pos) Group D Strep Or Entero Coccus Group D Strep Or Entero Coccus#2 05/02/20 16:29 Blood - Peripheral Venous Blood Culture - Preliminary Mr S Aureus Staphylococcus Coagulase Neg 05/02/20 16:17 Blood - Peripheral Venous Blood Culture - Preliminary Staphylococcus Coagulase Neg 05/02/20 16:45 Urine - Urine Hilliard Urine Culture - Final Group D Strep Or Entero Coccus -Vanco on hold, elevated Vanco levels today Problems reviewed: Yes Code(s): R78.81 - BACTEREMIA
--- NOTE | 2020-05-07 10:04 | PN ---
Progress Note (short form) - Note Progress Note: NAD on VM O2. Apparently did not use NIPPV overnight. Denies CP or SOB. Intake & Output 05/04/20 05/05/20 05/06/20 05/07/20 23:59 23:59 23:59 23:59 Intake Total 300 1200 320 100 Output Total 200 200 500 Balance 100 1000 -180 100 Weight 177 lb Last Vital Signs Temp Pulse Resp BP Pulse Ox 98.3 F 99 H 20 101/51 L 100 05/07/20 09:08 05/07/20 09:08 05/07/20 09:08 05/07/20 09:08 05/06/20 12:12 Active Medications Albuterol Sulfate (Ventolin 0.083% Nebulizer Soln -) 1 amp NEB Q4H PRN PRN Reason: SHORT OF BREATH/WHEEZING Apixaban (Eliquis -) 2.5 mg PO BID [facility] Last Admin: 05/06/20 22:21 Dose: 2.5 mg Documented by: Collagenase (Santyl -) 1 applic TP DAILY [facility]; Protocol Last Admin: 05/06/20 11:53 Dose: 1 applic Documented by: Furosemide (Lasix -) 40 mg PO DAILY [facility] Last Admin: 05/06/20 12:22 Dose: 40 mg Documented by: Meropenem 500 mg/ Dextrose 100 mls @ 200 mls/hr IVPB Q8H-IV [facility] Last Admin: 05/07/20 06:51 Dose: 200 mls/hr Documented by: Metoprolol Tartrate (Lopressor -) 25 mg PO BID [facility] Last Admin: 05/06/20 22:21 Dose: 25 mg Documented by: Metoprolol Tartrate (Lopressor Injection -) 5 mg IVPUSH Q4H PRN PRN Reason: FOR HR > 130 Last Admin: 05/04/20 21:46 Dose: 5 mg Documented by: Mirtazapine (Remeron -) 15 mg PO HS [facility] Last Admin: 05/06/20 22:21 Dose: 15 mg Documented by: Nystatin (Nystop Powder -) 1 applic TP BID [facility] Last Admin: 05/06/20 22:24 Dose: 1 applic Documented by: Constitutional: Yes: NAD on VM Eyes: Yes: Conjunctiva Clear, EOM Intact HENT: Yes: Atraumatic, Normocephalic Neck: Yes: Supple, Trachea Midline Cardiovascular: Yes: Pulse Irregular Respiratory: Yes: Diminished, On Nasal O2, Rhonchi. No: Accessory Muscle Use, Rales, SOB, SOB on Exertion, Stridor, Tachypnea, Wheezes ...Inspection: Yes: WNL ...Clubbing: No Gastrointestinal: Yes: Normal Bowel Sounds, Soft, Abdomen, Obese Renal/: Yes: WNL Musculoskeletal: Yes: WNL Extremities: Yes: WNL Edema: Yes Peripheral Pulses WNL: Yes Integumentary: Yes: WNL Neurological: Yes: Non-focal ...Motor Strength: WNL Psychiatric: Yes: Oriented Labs: Laboratory Results - last 24 hr 05/06/20 05/06/20 05/06/20 09:45 09:45 09:45 WBC 12.7 H RBC 2.99 L Hgb 8.1 L Hct 26.6 L MCV 88.8 MCH 26.9 MCHC 30.3 L RDW 20.7 H Plt Count 171 D MPV 8.3 Absolute Neuts (auto) 10.0 H Neutrophils % 78.5 Lymphocytes % 8.1 Monocytes % 3.4 L Eosinophils % 8.7 H Basophils % 1.3 Nucleated RBC % 0 Hypochromia 0 Platelet Comment Present Polychromasia 0 Poikilocytosis 1+ Basophilic Stippling 1+ Anisocytosis 1+ Microcytosis 0 Macrocytosis 1+ Target Cells 1+ Stomatocytes 1+ Sodium 146 H Potassium 3.7 Chloride 109 H Carbon Dioxide 30 Anion Gap 7 L BUN 81.1 H Creatinine 2.1 H Est GFR (CKD-EPI)AfAm 24.60 Est GFR (CKD-EPI)NonAf 21.23 Random Glucose 99 Calcium 8.2 L Total Bilirubin 0.5 AST 23 ALT 19 Alkaline Phosphatase 156 H Total Protein 4.6 L Albumin 1.7 L Random Vancomycin 31.5 H* 05/07/20 06:00 WBC RBC Hgb Hct MCV MCH MCHC RDW Plt Count MPV Absolute Neuts (auto) Neutrophils % Lymphocytes % Monocytes % Eosinophils % Basophils % Nucleated RBC % Hypochromia Platelet Comment Polychromasia Poikilocytosis Basophilic Stippling Anisocytosis Microcytosis Macrocytosis Target Cells Stomatocytes Sodium 146 H Potassium 4.1 Chloride 108 H Carbon Dioxide 29 Anion Gap 9 BUN 76.6 H Creatinine 2.2 H Est GFR (CKD-EPI)AfAm 23.26 Est GFR (CKD-EPI)NonAf 20.07 Random Glucose 74 Calcium 8.0 L Total Bilirubin 0.6 AST 23 ALT 17 Alkaline Phosphatase 189 H Total Protein 4.5 L Albumin 1.6 L Random Vancomycin Imaging - Results Chest X-ray: Report Reviewed, Image Reviewed Cat Scan: Report Reviewed, Image Reviewed Problem List - Problems (1) Atelectasis Code(s): J98.11 - ATELECTASIS (2) Pleural effusion Code(s): J90 - PLEURAL EFFUSION, NOT ELSEWHERE CLASSIFIED (3) Afib Code(s): I48.91 - UNSPECIFIED ATRIAL FIBRILLATION (4) Anemia Code(s): D64.9 - ANEMIA, UNSPECIFIED Qualifiers: Chronic kidney disease stage: stage 3 (moderate) (5) CHF exacerbation Code(s): I50.9 - HEART FAILURE, UNSPECIFIED (6) CKD (chronic kidney disease) Code(s): N18.9 - CHRONIC KIDNEY DISEASE, UNSPECIFIED (7) Dementia Code(s): F03.90 - UNSPECIFIED DEMENTIA WITHOUT BEHAVIORAL DISTURBANCE (8) GERD (gastroesophageal reflux disease) Code(s): K21.9 - GASTRO-ESOPHAGEAL REFLUX DISEASE WITHOUT ESOPHAGITIS Assessment/Plan NIPPV as needed VM O2 as needed ABX per ID Diuresis as needed Daily weights an Follow I & O VTE prophylaxis NIPPV support as needed BD TX PRN Monitor off systemic steroids Dr Carver Problem List - Problems (1) Atelectasis Code(s): J98.11 - ATELECTASIS (2) Pleural effusion Code(s): J90 - PLEURAL EFFUSION, NOT ELSEWHERE CLASSIFIED (3) Afib Code(s): I48.91 - UNSPECIFIED ATRIAL FIBRILLATION (4) Anemia Code(s): D64.9 - ANEMIA, UNSPECIFIED Qualifiers: Chronic kidney disease stage: stage 3 (moderate) (5) CHF exacerbation Code(s): I50.9 - HEART FAILURE, UNSPECIFIED (6) CKD (chronic kidney disease) Code(s): N18.9 - CHRONIC KIDNEY DISEASE, UNSPECIFIED (7) Dementia Code(s): F03.90 - UNSPECIFIED DEMENTIA WITHOUT BEHAVIORAL DISTURBANCE (8) GERD (gastroesophageal reflux disease) Code(s): K21.9 - GASTRO-ESOPHAGEAL REFLUX DISEASE WITHOUT ESOPHAGITIS
[2020-05-07] MEDS ORDERED: PT OWN MED DRAWER 7, Y5N ONE (10:14)
[2020-05-07] MEDS: METOPROLOL TARTRATE 25 MG TABLET (FP) PO SCH ×2 (10:38→21:11)
[2020-05-07] MEDS: FUROSEMIDE 40 MG TABLET (FP) PO SCH (10:38)
[2020-05-07] MEDS: APIXABAN 2.5 MG TABLET PO SCH ×2 (10:38→21:11)
[2020-05-07] MEDS: NYSTATIN POWDER 100,000 UNITS/GM - 15 GM TOPICAL POWDER TP SCH ×2 (10:39→21:19)
[2020-05-07] MEDS: COLLAGENASE CLOSTRIDIUM HIST. 30 GRAMS TUBE TP SCH (10:39)
--- NOTE | 2020-05-07 13:07 | PN ---
Progress Note, Physician History of Present Illness: Pt seen and examined at bedside. She is awake but confused. - Current Medication List Current Medications: Active Medications Albuterol Sulfate (Ventolin 0.083% Nebulizer Soln -) 1 amp NEB Q4H PRN PRN Reason: SHORT OF BREATH/WHEEZING Apixaban (Eliquis -) 2.5 mg PO BID [facility] Last Admin: 05/07/20 10:38 Dose: 2.5 mg Documented by: Collagenase (Santyl -) 1 applic TP DAILY [facility]; Protocol Last Admin: 05/07/20 10:39 Dose: 1 applic Documented by: Furosemide (Lasix -) 40 mg PO DAILY [facility] Last Admin: 05/07/20 10:38 Dose: 40 mg Documented by: Meropenem 500 mg/ Dextrose 100 mls @ 200 mls/hr IVPB Q8H-IV [facility] Last Admin: 05/07/20 10:43 Dose: 200 mls/hr Documented by: Metoprolol Tartrate (Lopressor -) 25 mg PO BID [facility] Last Admin: 05/07/20 10:38 Dose: 25 mg Documented by: Metoprolol Tartrate (Lopressor Injection -) 5 mg IVPUSH Q4H PRN PRN Reason: FOR HR > 130 Last Admin: 05/04/20 21:46 Dose: 5 mg Documented by: Mirtazapine (Remeron -) 15 mg PO HS [facility] Last Admin: 05/06/20 22:21 Dose: 15 mg Documented by: Nystatin (Nystop Powder -) 1 applic TP BID [facility] Last Admin: 05/07/20 10:39 Dose: 1 applic Documented by: - Objective Vital Signs: Vital Signs Temperature 98.3 F 05/07/20 09:08 Pulse Rate 99 H 05/07/20 09:08 Respiratory Rate 20 05/07/20 09:08 Blood Pressure 101/51 L 05/07/20 09:08 O2 Sat by Pulse Oximetry (%) 100 05/06/20 12:12 Constitutional: Yes: Calm Eyes: Yes: Conjunctiva Clear HENT: Yes: Atraumatic Neck: Yes: Supple Cardiovascular: Yes: S1, S2 Respiratory: Yes: CTA Bilaterally Gastrointestinal: Yes: Soft Genitourinary: Yes: Incontinence Musculoskeletal: Yes: Muscle Weakness Edema: Yes Edema: LUE: 1+, RUE: 1+, LLE: 1+, RLE: 1+ Neurological: Yes: Confusion Labs: CBC, BMP 05/06/20 09:45 05/07/20 06:00 INR, PTT INR 2.11 (0.83-1.09) H 05/03/20 11:09 Assessment/Plan Current Medications Generic Name Dose Route Start Last Admin Trade Name Freq PRN Reason Stop Dose Admin Albuterol Sulfate 1 amp 05/03/20 13:24 Ventolin 0.083% Nebulizer Soln - NEB Q4H PRN SHORT OF BREATH/WHEEZING Apixaban 2.5 mg 05/05/20 22:00 05/07/20 10:38 Eliquis - PO 2.5 mg BID [facility] Administration Collagenase 1 applic 05/03/20 10:00 05/07/20 10:39 Santyl - TP 1 applic DAILY [facility] Administration Protocol Furosemide 40 mg 05/06/20 12:15 05/07/20 10:38 Lasix - PO 40 mg DAILY [facility] Administration Meropenem 500 mg/ Dextrose 100 mls @ 200 mls/hr 05/04/20 18:00 05/07/20 10:43 IVPB 200 mls/hr Q8H-IV [facility] Administration Metoprolol Tartrate 25 mg 05/04/20 10:00 05/07/20 10:38 Lopressor - PO 25 mg BID [facility] Administration Metoprolol Tartrate 5 mg 05/03/20 17:55 05/04/20 21:46 Lopressor Injection - IVPUSH 5 mg Q4H PRN Administration FOR HR > 130 Mirtazapine 15 mg 05/02/20 22:00 05/06/20 22:21 Remeron - PO 15 mg HS [facility] Administration Nystatin 1 applic 05/02/20 22:45 05/07/20 10:39 Nystop Powder - TP 1 applic BID [facility] Administration Impression 1. POLINA 2. hyponatremia 3. altered mental status 4. copd 5. a-fib 6. gerd 7. hypoglycemia 8. chf 9. fluid overload 10. sepsis 11. liver cirrhosis 12. a-fib 13. hypokalemia 14. failure to thrive Plan - cont to monitor lytes - lasix po for volume control - encourage po intake - pt off of fluids - pt overall has poor functional status
--- NOTE | 2020-05-07 13:19 | PN ---
Progress Note, Physician Chief Complaint: awake, confused Sinus on tele with no events History of Present Illness: 84 year old female with a pmhx of afib not on ac, copd, dementia, ?cirrrhosis, left breast ca s/p mastectomy, and anxiety recently admitted for sepsis/uti sent from [place] with sob. Patient cannot give history EKG: undetermined rhythm but likely sinus tachycardia, lad, poor r wave progression, low voltage CXR: L effusion vs. atelectasis +WBC UA +3 leuk Na 159 on admission Cr rising to 2.1 now Echocardiogram 01/2020: normal LVEF and no significant valve disease. - Current Medication List Current Medications: Active Medications Albuterol Sulfate (Ventolin 0.083% Nebulizer Soln -) 1 amp NEB Q4H PRN PRN Reason: SHORT OF BREATH/WHEEZING Apixaban (Eliquis -) 2.5 mg PO BID [facility] Last Admin: 05/07/20 10:38 Dose: 2.5 mg Documented by: Collagenase (Santyl -) 1 applic TP DAILY [facility]; Protocol Last Admin: 05/07/20 10:39 Dose: 1 applic Documented by: Furosemide (Lasix -) 40 mg PO DAILY [facility] Last Admin: 05/07/20 10:38 Dose: 40 mg Documented by: Meropenem 500 mg/ Dextrose 100 mls @ 200 mls/hr IVPB Q8H-IV [facility] Last Admin: 05/07/20 10:43 Dose: 200 mls/hr Documented by: Metoprolol Tartrate (Lopressor -) 25 mg PO BID [facility] Last Admin: 05/07/20 10:38 Dose: 25 mg Documented by: Metoprolol Tartrate (Lopressor Injection -) 5 mg IVPUSH Q4H PRN PRN Reason: FOR HR > 130 Last Admin: 05/04/20 21:46 Dose: 5 mg Documented by: Mirtazapine (Remeron -) 15 mg PO HS [facility] Last Admin: 05/06/20 22:21 Dose: 15 mg Documented by: Nystatin (Nystop Powder -) 1 applic TP BID [facility] Last Admin: 05/07/20 10:39 Dose: 1 applic Documented by: - Objective Vital Signs: Vital Signs Temperature 98.3 F 05/07/20 09:08 Pulse Rate 99 H 05/07/20 09:08 Respiratory Rate 20 05/07/20 09:08 Blood Pressure 101/51 L 05/07/20 09:08 O2 Sat by Pulse Oximetry (%) 100 05/06/20 12:12 Constitutional: Yes: No Distress Neck: Yes: Supple Cardiovascular: Yes: Regular Rate and Rhythm, S1, S2. No: JVD Respiratory: Yes: CTA Bilaterally Gastrointestinal: Yes: Soft Edema: LLE: Trace, RLE: Trace Labs: CBC, BMP 05/06/20 09:45 05/07/20 06:00 INR, PTT INR 2.11 (0.83-1.09) H 05/03/20 11:09 Problem List - Problems (1) POLINA (acute kidney injury) Code(s): N17.9 - ACUTE KIDNEY FAILURE, UNSPECIFIED (2) Afib Code(s): I48.91 - UNSPECIFIED ATRIAL FIBRILLATION Assessment/Plan 84 year old female with a pmhx of afib not on ac, copd, dementia, ?cirrrhosis, left breast ca s/p mastectomy, and anxiety recently admitted for sepsis/uti sent from [place] with sob. Patient cannot give history EKG: undetermined rhythm but likely sinus tachycardia, lad, poor r wave progression, low voltage CXR: L effusion vs. atelectasis +WBC UA +3 leuk Na 159 on admission Cr rising to 2.1 now Echocardiogram 01/2020: normal LVEF and no significant valve disease. 1) Afib -Patient on antibiotics as per primary team. Can continue low dose metoprolol -On apixaban -Hyponatremia much improved and stable. Cr 2.2 continue to monitor and f/u renal recs. Would continue po furosemide dosing for volume control which appears near control -If telemetry bed needed, would consider d/cing tele as has been sinus and prior days her events were mainly significant for artifact.
--- NOTE | 2020-05-07 17:46 | PN ---
Progress Note (short form) - Note Progress Note: Ethics The hospital environmental lawyer is currently reviewing the guardian papers. Please do NOT place a DNR/DNI order on the patient until this review is completed. Continue routine care. Addendum: The hospital Legal team was able to obtain a copy of the complete guardianship papers and based on their review of the document it has been determined that the children are the proper surrogates for medical decision making and not the [facility] contacts. A copy of the document is on the floor chart.
[2020-05-07] MEDS: MIRTAZAPINE 15 MG TABLET (FP) PO SCH (21:11)
[2020-05-08] MEDS ORDERED: MEROPENEM 500 MG VIAL (RESTRICTED TO ID) IVPB ONE ×3 (01:32→18:39)
[2020-05-08] MEDS ORDERED: DEXTROSE 5%-WATER 100 ML IVPB ONE ×3 (01:32→18:39)
[2020-05-08] MEDS: MEROPENEM 500 MG in DEXTROSE 5%-WATER 100 ML IVPB SCH ×3 (01:34→18:40)
--- NOTE | 2020-05-08 08:58 | PN ---
Progress Note, Physician - Current Medication List Current Medications: Active Medications Albuterol Sulfate (Ventolin 0.083% Nebulizer Soln -) 1 amp NEB Q4H PRN PRN Reason: SHORT OF BREATH/WHEEZING Apixaban (Eliquis -) 2.5 mg PO BID [facility] Last Admin: 05/07/20 21:11 Dose: 2.5 mg Documented by: Collagenase (Santyl -) 1 applic TP DAILY [facility]; Protocol Last Admin: 05/07/20 10:39 Dose: 1 applic Documented by: Furosemide (Lasix -) 40 mg PO DAILY [facility] Last Admin: 05/07/20 10:38 Dose: 40 mg Documented by: Meropenem 500 mg/ Dextrose 100 mls @ 200 mls/hr IVPB Q8H-IV [facility] Last Admin: 05/08/20 01:34 Dose: 200 mls/hr Documented by: Metoprolol Tartrate (Lopressor -) 25 mg PO BID [facility] Last Admin: 05/07/20 21:11 Dose: 25 mg Documented by: Metoprolol Tartrate (Lopressor Injection -) 5 mg IVPUSH Q4H PRN PRN Reason: FOR HR > 130 Last Admin: 05/04/20 21:46 Dose: 5 mg Documented by: Mirtazapine (Remeron -) 15 mg PO HS [facility] Last Admin: 05/07/20 21:11 Dose: 15 mg Documented by: Nystatin (Nystop Powder -) 1 applic TP BID [facility] Last Admin: 05/07/20 21:19 Dose: 1 applic Documented by: - Objective Vital Signs: Vital Signs Temperature 98.7 F 05/08/20 06:00 Pulse Rate 102 H 05/08/20 06:00 Respiratory Rate 05/08/20 06:00 Blood Pressure 100/54 L 05/08/20 06:00 O2 Sat by Pulse Oximetry (%) 92 L 05/07/20 21:00 Cardiovascular: Yes: S1, S2 Respiratory: Yes: Regular, CTA Bilaterally Gastrointestinal: Yes: Normal Bowel Sounds, Soft Labs: CBC, BMP 05/06/20 09:45 05/07/20 06:00 INR, PTT INR 2.11 (0.83-1.09) H 05/03/20 11:09 Problem List - Problems (1) Hypernatremia Code(s): E87.0 - HYPEROSMOLALITY AND HYPERNATREMIA (2) Sepsis Code(s): A41.9 - SEPSIS, UNSPECIFIED ORGANISM Qualifiers: (3) Afib Code(s): I48.91 - UNSPECIFIED ATRIAL FIBRILLATION (4) CKD (chronic kidney disease) Code(s): N18.9 - CHRONIC KIDNEY DISEASE, UNSPECIFIED Assessment/Plan - Problems (1) Failure to thrive Assessment/Plan: -Ethics to consider DNR/DNR with 2 PC consent -megastrol -Continue mirtazapine Problems reviewed: Yes Code(s): [id number] - (2) POLINA (acute kidney injury) Assessment/Plan: -Nephrology on board -daily AM labs Problems reviewed: Yes Code(s): N17.9 - ACUTE KIDNEY FAILURE, UNSPECIFIED (3) Afib Assessment/Plan: -chronic, rate controlled -Eliquis discontinued last admission due to possible GI bleed and drop in her H/H -Eliquis restarted upon admission this time -will monitor her H/H closely -Decrease Eliquis dosage to 2.5 mg po bid given pt's age and Elevated Cr. -No concern for PE at this time Problems reviewed: Yes Code(s): I48.91 - UNSPECIFIED ATRIAL FIBRILLATION (4) Anemia Assessment/Plan: -chronic,2/2 to chronic blood loss Problems reviewed: Yes Code(s): D64.9 - ANEMIA, UNSPECIFIED Qualifiers: Chronic kidney disease stage: stage 3 (moderate) (5) Urinary retention Assessment/Plan: -Maintain hilliard catheter Problems reviewed: Yes Code(s): R33.9 - RETENTION OF URINE, UNSPECIFIED (6) Bacteremia Assessment/Plan: -On IV meropenem -ID on board -Afebrile -Cultures: Microbiology 05/04/20 10:20 Blood - Peripheral Venous Blood Culture - Preliminary NO GROWTH OBTAINED AFTER 24 HOURS, INCUBATION TO CONTINUE FOR 4 DAYS. 05/04/20 10:38 Blood - Peripheral Venous Blood Culture - Preliminary NO GROWTH OBTAINED AFTER 24 HOURS, INCUBATION TO CONTINUE FOR 4 DAYS. 05/03/20 02:30 Groin - Left Gram Stain - Final 05/03/20 02:30 Groin - Left Wound Culture - Final Pseudomonas Aeruginosa Proteus Species Lactose Fermenting Neg Bacilli Presumptive Mrsa (Pbp2a Pos) Group D Strep Or Entero Coccus Group D Strep Or Entero Coccus#2 06/20/20 16:29 Blood - Peripheral Venous Blood Culture - Preliminary Mr S Aureus Staphylococcus Coagulase Neg 05/02/20 16:17 Blood - Peripheral Venous Blood Culture - Preliminary Staphylococcus Coagulase Neg 05/02/20 16:45 Urine - Urine Hilliard Urine Culture - Final Group D Strep Or Entero Coccus -Vanco on hold, elevated Vanco levels today Problems reviewed: Yes Code(s): R78.81 - BACTEREMIA PALLIATIVE CARE CONSULT
[2020-05-08] MEDS ORDERED: PT OWN MED DRAWER 7, Y5N ONE (10:15)
[2020-05-08] MEDS: APIXABAN 2.5 MG TABLET PO SCH ×2 (10:32→21:03)
[2020-05-08] MEDS: METOPROLOL TARTRATE 25 MG TABLET (FP) PO SCH ×2 (10:32→21:03)
[2020-05-08] MEDS: FUROSEMIDE 40 MG TABLET (FP) PO SCH (10:33)
[2020-05-08] MEDS: NYSTATIN POWDER 100,000 UNITS/GM - 15 GM TOPICAL POWDER TP SCH ×2 (10:33→21:03)
[2020-05-08] MEDS: COLLAGENASE CLOSTRIDIUM HIST. 30 GRAMS TUBE TP SCH (10:33)
--- NOTE | 2020-05-08 10:41 | PN ---
Progress Note (short form) - Note Progress Note: PULMONARY NAD on VM O2. NIPPV AT BEDSIDE VSS/AFEBRILE Constitutional: Yes: NAD on VM Eyes: Yes: Conjunctiva Clear, EOM Intact HENT: Yes: Atraumatic, Normocephalic Neck: Yes: Supple, Trachea Midline Cardiovascular: Yes: Pulse Irregular Respiratory: Yes: Diminished, On Nasal O2, Rhonchi. No: Accessory Muscle Use, Rales, SOB, SOB on Exertion, Stridor, Tachypnea, Wheezes ...Inspection: Yes: WNL ...Clubbing: No Gastrointestinal: Yes: Normal Bowel Sounds, Soft, Abdomen, Obese Renal/: Yes: WNL Musculoskeletal: Yes: WNL Extremities: Yes: WNL Edema: Yes Peripheral Pulses WNL: Yes Integumentary: Yes: WNL Neurological: Yes: Non-focal ...Motor Strength: WNL Psychiatric: Yes: Oriented Labs: NOTED Chest X-ray: Report Reviewed, Image Reviewed Cat Scan: Report Reviewed, Image Reviewed Problem List - Problems (1) Atelectasis Code(s): J98.11 - ATELECTASIS (2) Pleural effusion Code(s): J90 - PLEURAL EFFUSION, NOT ELSEWHERE CLASSIFIED (3) Afib Code(s): I48.91 - UNSPECIFIED ATRIAL FIBRILLATION (4) Anemia Code(s): D64.9 - ANEMIA, UNSPECIFIED Qualifiers: Chronic kidney disease stage: stage 3 (moderate) (5) CHF exacerbation Code(s): I50.9 - HEART FAILURE, UNSPECIFIED (6) CKD (chronic kidney disease) Code(s): N18.9 - CHRONIC KIDNEY DISEASE, UNSPECIFIED (7) Dementia Code(s): F03.90 - UNSPECIFIED DEMENTIA WITHOUT BEHAVIORAL DISTURBANCE (8) GERD (gastroesophageal reflux disease) Code(s): K21.9 - GASTRO-ESOPHAGEAL REFLUX DISEASE WITHOUT ESOPHAGITIS NIPPV as needed VM O2 as needed ABX per ID Diuresis as needed Daily weights an Follow I & O VTE prophylaxis NIPPV support as needed BD TX PRN Monitor off systemic steroids Dr Lorenzo Howard
[2020-05-08 11:00] LABS: BASO % 1.5 % (0-2.0); EOS % 8.3 % (0-4.5); HEMATOCRIT 23.8 % (32.4-45.2); HEMOGLOBIN 7.4 GM/dL (10.7-15.3); LYMPH % 11.2 % (8-40); MCH 27.5 pg (25.7-33.7); MEAN CELL VOLUME 88.7 fl (80-96); MEAN PLT VOLUME 8.8 fl (7.5-11.1); MONO % 5.4 % (3.8-10.2); NEUT % 73.6 % (42.8-82.8); PLATELET COUNT 148 K/MM3 (134-434); RBC 2.68 M/mm3 (3.60-5.2); RDW 20.3 % (11.6-15.6); WHITE BLOOD COUNT 9.4 K/mm3 (4.0-10.0)
[2020-05-08 11:23] LABS: ALBUMIN 1.4 g/dl (3.4-5.0); BILIRUBIN,TOTAL 0.5 mg/dL (0.2-1); BLOOD UREA NITROGEN 78.6 mg/dL (7-18); CALCIUM 7.7 mg/dL (8.5-10.1); CREATININE 2.2 mg/dL (0.55-1.3); POTASSIUM 3.5 mmol/L (3.5-5.1); TOT PROT 4.1 g/dl (6.4-8.2)
[2020-05-08] MEDS ORDERED: POTASSIUM CHLORIDE ORAL LIQUID 20 MEQ/15 ML PO ONE ×2 (11:53→13:45)
--- NOTE | 2020-05-08 11:59 | PN ---
Progress Note, Physician History of Present Illness: Pt seen and examined at bedside. She is awake and appears more comfortable. - Current Medication List Current Medications: Active Medications Albuterol Sulfate (Ventolin 0.083% Nebulizer Soln -) 1 amp NEB Q4H PRN PRN Reason: SHORT OF BREATH/WHEEZING Apixaban (Eliquis -) 2.5 mg PO BID [facility] Last Admin: 05/08/20 10:32 Dose: 2.5 mg Documented by: Collagenase (Santyl -) 1 applic TP DAILY [facility]; Protocol Last Admin: 05/08/20 10:33 Dose: 1 applic Documented by: Furosemide (Lasix -) 40 mg PO DAILY [facility] Last Admin: 05/08/20 10:33 Dose: 40 mg Documented by: Meropenem 500 mg/ Dextrose 100 mls @ 200 mls/hr IVPB Q8H-IV [facility] Last Admin: 05/08/20 10:32 Dose: 200 mls/hr Documented by: Metoprolol Tartrate (Lopressor -) 25 mg PO BID [facility] Last Admin: 05/08/20 10:32 Dose: 25 mg Documented by: Metoprolol Tartrate (Lopressor Injection -) 5 mg IVPUSH Q4H PRN PRN Reason: FOR HR > 130 Last Admin: 05/04/20 21:46 Dose: 5 mg Documented by: Mirtazapine (Remeron -) 15 mg PO HS [facility] Last Admin: 05/07/20 21:11 Dose: 15 mg Documented by: Nystatin (Nystop Powder -) 1 applic TP BID [facility] Last Admin: 05/08/20 10:33 Dose: 1 applic Documented by: - Objective Vital Signs: Vital Signs Temperature 98.2 F 05/08/20 10:30 Pulse Rate 97 H 05/08/20 10:30 Respiratory Rate 19 05/08/20 10:30 Blood Pressure 108/51 L 05/08/20 10:30 O2 Sat by Pulse Oximetry (%) 92 L 05/07/20 21:00 Constitutional: Yes: Calm Eyes: Yes: Conjunctiva Clear HENT: Yes: Atraumatic Neck: Yes: Supple Cardiovascular: Yes: S1, S2 Respiratory: Yes: On Venti-Mask Gastrointestinal: Yes: Soft Genitourinary: Yes: Incontinence Musculoskeletal: Yes: Muscle Weakness Edema: Yes Edema: LUE: 1+, RUE: 1+, LLE: 1+, RLE: 1+ Neurological: Yes: Confusion Labs: CBC, BMP 05/08/20 10:20 05/08/20 10:20 INR, PTT INR 2.11 (0.83-1.09) H 05/03/20 11:09 Assessment/Plan Current Medications Generic Name Dose Route Start Last Admin Trade Name Freq PRN Reason Stop Dose Admin Albuterol Sulfate 1 amp 05/03/20 13:24 Ventolin 0.083% Nebulizer Soln - NEB Q4H PRN SHORT OF BREATH/WHEEZING Apixaban 2.5 mg 05/05/20 22:00 05/08/20 10:32 Eliquis - PO 2.5 mg BID [facility] Administration Collagenase 1 applic 05/03/20 10:00 05/08/20 10:33 Santyl - TP 1 applic DAILY [facility] Administration Protocol Furosemide 40 mg 05/06/20 12:15 05/08/20 10:33 Lasix - PO 40 mg DAILY [facility] Administration Meropenem 500 mg/ Dextrose 100 mls @ 200 mls/hr 05/04/20 18:00 05/08/20 10:32 IVPB 200 mls/hr Q8H-IV [facility] Administration Metoprolol Tartrate 25 mg 05/04/20 10:00 05/08/20 10:32 Lopressor - PO 25 mg BID [facility] Administration Metoprolol Tartrate 5 mg 05/03/20 17:55 05/04/20 21:46 Lopressor Injection - IVPUSH 5 mg Q4H PRN Administration FOR HR > 130 Mirtazapine 15 mg 05/02/20 22:00 05/07/20 21:11 Remeron - PO 15 mg HS [facility] Administration Nystatin 1 applic 05/02/20 22:45 05/08/20 10:33 Nystop Powder - TP 1 applic BID [facility] Administration Impression 1. POLINA 2. hyponatremia 3. altered mental status 4. copd 5. a-fib 6. gerd 7. hypoglycemia 8. chf 9. fluid overload 10. sepsis 11. liver cirrhosis 12. a-fib 13. hypokalemia 14. failure to thrive Plan - cont lasix - encourage po intake - monitor lytes - pt off of fluids - pt overall has poor functional status
--- NOTE | 2020-05-08 13:53 | PN ---
Progress Note, Physician Chief Complaint: In bed No acute distress Sinus on tele with no events History of Present Illness: 84 year old female with a pmhx of afib not on ac, copd, dementia, ?cirrrhosis, left breast ca s/p mastectomy, and anxiety recently admitted for sepsis/uti sent from [place] with sob. Patient cannot give history EKG: undetermined rhythm but likely sinus tachycardia, lad, poor r wave progression, low voltage CXR: L effusion vs. atelectasis +WBC UA +3 leuk Na 159 on admission Cr rising to 2.1 now Echocardiogram 01/2020: normal LVEF and no significant valve disease. - Current Medication List Current Medications: Active Medications Apixaban (Eliquis -) 2.5 mg PO BID [facility] Last Admin: 05/08/20 10:32 Dose: 2.5 mg Documented by: Collagenase (Santyl -) 1 applic TP DAILY [facility]; Protocol Last Admin: 05/08/20 10:33 Dose: 1 applic Documented by: Furosemide (Lasix -) 40 mg PO DAILY [facility] Last Admin: 05/08/20 10:33 Dose: 40 mg Documented by: Meropenem 500 mg/ Dextrose 100 mls @ 200 mls/hr IVPB Q8H-IV [facility] Last Admin: 05/08/20 10:32 Dose: 200 mls/hr Documented by: Metoprolol Tartrate (Lopressor -) 25 mg PO BID [facility] Last Admin: 05/08/20 10:32 Dose: 25 mg Documented by: Metoprolol Tartrate (Lopressor Injection -) 5 mg IVPUSH Q4H PRN PRN Reason: FOR HR > 130 Last Admin: 05/04/20 21:46 Dose: 5 mg Documented by: Mirtazapine (Remeron -) 15 mg PO HS [facility] Last Admin: 05/07/20 21:11 Dose: 15 mg Documented by: Nystatin (Nystop Powder -) 1 applic TP BID [facility] Last Admin: 05/08/20 10:33 Dose: 1 applic Documented by: - Objective Vital Signs: Vital Signs Temperature 98.2 F 05/08/20 10:30 Pulse Rate 97 H 05/08/20 10:30 Respiratory Rate 19 05/08/20 10:30 Blood Pressure 108/51 L 05/08/20 10:30 O2 Sat by Pulse Oximetry (%) 92 L 05/07/20 21:00 Constitutional: Yes: No Distress Neck: Yes: Supple Cardiovascular: Yes: Regular Rate and Rhythm, JVD, S1, S2 Respiratory: Yes: CTA Bilaterally Gastrointestinal: Yes: Soft Edema: LLE: Trace, RLE: Trace Labs: CBC, BMP 05/08/20 10:20 05/08/20 10:20 INR, PTT INR 2.11 (0.83-1.09) H 05/03/20 11:09 Problem List - Problems (1) POLINA (acute kidney injury) Code(s): N17.9 - ACUTE KIDNEY FAILURE, UNSPECIFIED (2) Afib Code(s): I48.91 - UNSPECIFIED ATRIAL FIBRILLATION Assessment/Plan 84 year old female with a pmhx of afib not on ac, copd, dementia, ?cirrrhosis, left breast ca s/p mastectomy, and anxiety recently admitted for sepsis/uti sent from [place] with sob. Patient cannot give history EKG: undetermined rhythm but likely sinus tachycardia, lad, poor r wave progression, low voltage CXR: L effusion vs. atelectasis +WBC UA +3 leuk Na 159 on admission Cr rising to 2.1 now Echocardiogram 01/2020: normal LVEF and no significant valve disease. 1) Afib -Patient on antibiotics as per primary team. low dose metoprolol -On apixaban H/h trending down. Risk/benefit of AC as per primary team. -On po furosemide dosing for volume control which appears controlled -Would DC telemetry -Will sign off
--- NOTE | 2020-05-08 17:37 | PN ---
Progress Note, Physician History of Present Illness: LETHARGIC, CONFUSED OFFERS NO COMPLAINTS WBC IMPROVED + AZOTEMIA BC GPCCL VANCO LEVEL ELEVATED WOUND C/S POLYMICROBIAL - Current Medication List Current Medications: Active Medications Apixaban (Eliquis -) 2.5 mg PO BID [facility] Last Admin: 05/08/20 10:32 Dose: 2.5 mg Documented by: Collagenase (Santyl -) 1 applic TP DAILY [facility]; Protocol Last Admin: 05/08/20 10:33 Dose: 1 applic Documented by: Furosemide (Lasix -) 40 mg PO DAILY [facility] Last Admin: 05/08/20 10:33 Dose: 40 mg Documented by: Meropenem 500 mg/ Dextrose 100 mls @ 200 mls/hr IVPB Q8H-IV [facility] Last Admin: 05/08/20 10:32 Dose: 200 mls/hr Documented by: Metoprolol Tartrate (Lopressor -) 25 mg PO BID [facility] Last Admin: 05/08/20 10:32 Dose: 25 mg Documented by: Metoprolol Tartrate (Lopressor Injection -) 5 mg IVPUSH Q4H PRN PRN Reason: FOR HR > 130 Last Admin: 05/04/20 21:46 Dose: 5 mg Documented by: Mirtazapine (Remeron -) 15 mg PO HS [facility] Last Admin: 05/07/20 21:11 Dose: 15 mg Documented by: Nystatin (Nystop Powder -) 1 applic TP BID [facility] Last Admin: 05/08/20 10:33 Dose: 1 applic Documented by: - Objective Vital Signs: Vital Signs Temperature 98.1 F 05/08/20 14:00 Pulse Rate 95 H 05/08/20 14:00 Respiratory Rate 05/08/20 14:00 Blood Pressure 111/59 L 05/08/20 14:00 O2 Sat by Pulse Oximetry (%) 97 05/08/20 09:00 Constitutional: Yes: No Distress Eyes: Yes: Conjunctiva Clear Cardiovascular: Yes: Regular Rate and Rhythm, S1, S2 Respiratory: Yes: CTA Bilaterally Gastrointestinal: Yes: Normal Bowel Sounds, Soft, Abdomen, Obese Labs: CBC, BMP 05/08/20 10:20 05/08/20 10:20 INR, PTT INR 2.11 (0.83-1.09) H 05/03/20 11:09 Assessment/Plan +BC STAPH BACTEREMIA WOUND INFECTION LEUKOCYTOSIS AZOTEMIA AWAIT C/S HOLD VANCOMYCIN MEROPENEM
--- NOTE | 2020-05-08 18:38 | PN ---
Progress Note (short form) - Note Progress Note: Vascular Surgery Pt seen and examined. stage 3 sacral ulcer with slough. Excoriations on buttocks. Off load area. Santyl to all wounds. If does not get better, will need debridement. Tim Mina DO
[2020-05-08] MEDS: MIRTAZAPINE 15 MG TABLET (FP) PO SCH (21:03)
[2020-05-09] MEDS ORDERED: MEROPENEM 500 MG VIAL (RESTRICTED TO ID) IVPB ONE ×3 (02:01→17:05)
[2020-05-09] MEDS ORDERED: DEXTROSE 5%-WATER 100 ML IVPB ONE ×3 (02:02→17:06)
[2020-05-09] MEDS: MEROPENEM 500 MG in DEXTROSE 5%-WATER 100 ML IVPB SCH ×3 (02:07→17:06)
[2020-05-09] MEDS: FUROSEMIDE 40 MG TABLET (FP) PO SCH (09:46)
[2020-05-09] MEDS: METOPROLOL TARTRATE 25 MG TABLET (FP) PO SCH ×2 (09:46→21:14)
[2020-05-09] MEDS: APIXABAN 2.5 MG TABLET PO SCH ×2 (09:46→21:13)
[2020-05-09] MEDS: NYSTATIN POWDER 100,000 UNITS/GM - 15 GM TOPICAL POWDER TP SCH ×2 (09:47→21:14)
[2020-05-09] MEDS: COLLAGENASE CLOSTRIDIUM HIST. 30 GRAMS TUBE TP SCH (09:47)
--- NOTE | 2020-05-09 10:47 | PN ---
Progress Note (short form) - Note Progress Note: PULMONARY NAD on VM O2. NIPPV AT BEDSIDE VASCULAR OPINION REVIEWED VSS/AFEBRILE Constitutional: Yes: NAD on VM Eyes: Yes: Conjunctiva Clear, EOM Intact HENT: Yes: Atraumatic, Normocephalic Neck: Yes: Supple, Trachea Midline Cardiovascular: Yes: Pulse Irregular Respiratory: Yes: Diminished, On Nasal O2, Rhonchi. No: Accessory Muscle Use, Rales, SOB, SOB on Exertion, Stridor, Tachypnea, Wheezes ...Inspection: Yes: WNL ...Clubbing: No Gastrointestinal: Yes: Normal Bowel Sounds, Soft, Abdomen, Obese Renal/: Yes: WNL Musculoskeletal: Yes: WNL Extremities: Yes: WNL Edema: Yes Peripheral Pulses WNL: Yes Integumentary: Yes: WNL Neurological: Yes: Non-focal ...Motor Strength: WNL Psychiatric: Yes: Oriented Labs: NOTED Chest X-ray: Report Reviewed, Image Reviewed Cat Scan: Report Reviewed, Image Reviewed Problem List - Problems (1) Atelectasis Code(s): J98.11 - ATELECTASIS (2) Pleural effusion Code(s): J90 - PLEURAL EFFUSION, NOT ELSEWHERE CLASSIFIED (3) Afib Code(s): I48.91 - UNSPECIFIED ATRIAL FIBRILLATION (4) Anemia Code(s): D64.9 - ANEMIA, UNSPECIFIED Qualifiers: Chronic kidney disease stage: stage 3 (moderate) (5) CHF exacerbation Code(s): I50.9 - HEART FAILURE, UNSPECIFIED (6) CKD (chronic kidney disease) Code(s): N18.9 - CHRONIC KIDNEY DISEASE, UNSPECIFIED (7) Dementia Code(s): F03.90 - UNSPECIFIED DEMENTIA WITHOUT BEHAVIORAL DISTURBANCE (8) GERD (gastroesophageal reflux disease) Code(s): K21.9 - GASTRO-ESOPHAGEAL REFLUX DISEASE WITHOUT ESOPHAGITIS NIPPV as needed VM O2 as needed ABX per ID Diuresis as needed Daily weights an Follow I & O VTE prophylaxis BD TX PRN Monitor off systemic steroids Dr Lorenzo Howard
--- NOTE | 2020-05-09 11:42 | PN ---
Progress Note, Physician Chief Complaint: EVENTS AND NOTES REVIEWED ON TELEMETRY - Current Medication List Current Medications: Active Medications Apixaban (Eliquis -) 2.5 mg PO BID [facility] Last Admin: 05/09/20 09:46 Dose: 2.5 mg Documented by: Collagenase (Santyl -) 1 applic TP DAILY [facility]; Protocol Last Admin: 05/09/20 09:47 Dose: 1 applic Documented by: Furosemide (Lasix -) 40 mg PO DAILY [facility] Last Admin: 05/09/20 09:46 Dose: 40 mg Documented by: Meropenem 500 mg/ Dextrose 100 mls @ 200 mls/hr IVPB Q8H-IV [facility] Last Admin: 05/09/20 09:45 Dose: 200 mls/hr Documented by: Metoprolol Tartrate (Lopressor -) 25 mg PO BID [facility] Last Admin: 05/09/20 09:46 Dose: 25 mg Documented by: Metoprolol Tartrate (Lopressor Injection -) 5 mg IVPUSH Q4H PRN PRN Reason: FOR HR > 130 Last Admin: 05/04/20 21:46 Dose: 5 mg Documented by: Mirtazapine (Remeron -) 15 mg PO HS [facility] Last Admin: 05/08/20 21:03 Dose: 15 mg Documented by: Nystatin (Nystop Powder -) 1 applic TP BID [facility] Last Admin: 05/09/20 09:47 Dose: 1 applic Documented by: - Objective Vital Signs: Vital Signs Temperature 98.0 F 05/09/20 10:00 Pulse Rate 104 H 05/09/20 10:00 Respiratory Rate 20 05/09/20 10:00 Blood Pressure 116/53 L 05/09/20 10:00 O2 Sat by Pulse Oximetry (%) 99 05/09/20 00:00 Constitutional: Yes: Moderate Distress Cardiovascular: Yes: Pulse Irregular Respiratory: Yes: Diminished Gastrointestinal: Yes: Soft Genitourinary: Yes: Incontinence Neurological: Yes: Lethargy, Pre-Existing Deficit Labs: CBC, BMP 05/08/20 10:20 05/08/20 10:20 INR, PTT INR 2.11 (0.83-1.09) H 05/03/20 11:09 Problem List - Problems (1) Atelectasis Code(s): J98.11 - ATELECTASIS (2) Bacteremia Code(s): R78.81 - BACTEREMIA (3) Failure to thrive Code(s): [id number] - (4) Pleural effusion Code(s): J90 - PLEURAL EFFUSION, NOT ELSEWHERE CLASSIFIED (5) Acute metabolic encephalopathy due to hypoglycemia Code(s): G93.41 - METABOLIC ENCEPHALOPATHY; E16.2 - HYPOGLYCEMIA, UNSPECIFIED (6) Acute respiratory failure with hypoxia and hypercapnia Code(s): J96.01 - ACUTE RESPIRATORY FAILURE WITH HYPOXIA; J96.02 - ACUTE RESPIRATORY FAILURE WITH HYPERCAPNIA (7) Dementia Code(s): F03.90 - UNSPECIFIED DEMENTIA WITHOUT BEHAVIORAL DISTURBANCE Qualifiers: Dementia type: unspecified type Dementia behavioral disturbance: without behavioral disturbance Qualified Code(s): F03.90 - Unspecified dementia without behavioral disturbance (8) Poor appetite Code(s): R63.0 - ANOREXIA (9) Urinary retention Code(s): R33.9 - RETENTION OF URINE, UNSPECIFIED Assessment/Plan FULL CODE ON TELE PALLIATIVE CARE CONSULT DAILY [facility] PT EVAL ON ELIQUIS MONITOR INPUT
--- NOTE | 2020-05-09 18:55 | PN ---
Progress Note, Physician History of Present Illness: Pt seen and examined at bedside. She is awake and appears comfortable. PO intake is poor. - Current Medication List Current Medications: Active Medications Apixaban (Eliquis -) 2.5 mg PO BID [facility] Last Admin: 05/09/20 09:46 Dose: 2.5 mg Documented by: Collagenase (Santyl -) 1 applic TP DAILY [facility]; Protocol Last Admin: 05/09/20 09:47 Dose: 1 applic Documented by: Furosemide (Lasix -) 40 mg PO DAILY [facility] Last Admin: 05/09/20 09:46 Dose: 40 mg Documented by: Meropenem 500 mg/ Dextrose 100 mls @ 200 mls/hr IVPB Q8H-IV [facility] Last Admin: 05/09/20 17:06 Dose: 200 mls/hr Documented by: Metoprolol Tartrate (Lopressor -) 25 mg PO BID [facility] Last Admin: 05/09/20 09:46 Dose: 25 mg Documented by: Metoprolol Tartrate (Lopressor Injection -) 5 mg IVPUSH Q4H PRN PRN Reason: FOR HR > 130 Last Admin: 05/04/20 21:46 Dose: 5 mg Documented by: Mirtazapine (Remeron -) 15 mg PO HS [facility] Last Admin: 05/08/20 21:03 Dose: 15 mg Documented by: Nystatin (Nystop Powder -) 1 applic TP BID [facility] Last Admin: 05/09/20 09:47 Dose: 1 applic Documented by: - Objective Vital Signs: Vital Signs Temperature 97.8 F 05/09/20 18:00 Pulse Rate 93 H 05/09/20 18:00 Respiratory Rate 19 05/09/20 18:00 Blood Pressure 103/59 L 05/09/20 18:00 O2 Sat by Pulse Oximetry (%) 99 05/09/20 00:00 Constitutional: Yes: Calm Eyes: Yes: Conjunctiva Clear HENT: Yes: Atraumatic Cardiovascular: Yes: S1, S2 Respiratory: Yes: On Nasal O2 Gastrointestinal: Yes: Soft, Abdomen, Obese Genitourinary: Yes: Incontinence Edema: Yes Edema: LLE: 1+, RLE: 1+ Neurological: Yes: Confusion Labs: CBC, BMP 05/08/20 10:20 05/08/20 10:20 INR, PTT INR 2.11 (0.83-1.09) H 05/03/20 11:09 Assessment/Plan Current Medications Generic Name Dose Route Start Last Admin Trade Name Freq PRN Reason Stop Dose Admin Apixaban 2.5 mg 05/05/20 22:00 05/09/20 09:46 Eliquis - PO 2.5 mg BID [facility] Administration Collagenase 1 applic 05/03/20 10:00 05/09/20 09:47 Santyl - TP 1 applic DAILY [facility] Administration Protocol Furosemide 40 mg 05/06/20 12:15 05/09/20 09:46 Lasix - PO 40 mg DAILY [facility] Administration Meropenem 500 mg/ Dextrose 100 mls @ 200 mls/hr 05/04/20 18:00 05/09/20 17:06 IVPB 200 mls/hr Q8H-IV [facility] Administration Metoprolol Tartrate 25 mg 05/04/20 10:00 05/09/20 09:46 Lopressor - PO 25 mg BID [facility] Administration Metoprolol Tartrate 5 mg 05/03/20 17:55 05/04/20 21:46 Lopressor Injection - IVPUSH 5 mg Q4H PRN Administration FOR HR > 130 Mirtazapine 15 mg 05/02/20 22:00 05/08/20 21:03 Remeron - PO 15 mg HS [facility] Administration Nystatin 1 applic 05/02/20 22:45 05/09/20 09:47 Nystop Powder - TP 1 applic BID [facility] Administration Impression 1. POLINA 2. hyponatremia 3. altered mental status 4. copd 5. a-fib 6. gerd 7. hypoglycemia 8. chf 9. fluid overload 10. sepsis 11. liver cirrhosis 12. a-fib 13. hypokalemia 14. failure to thrive Plan - check labs in am - cont po lasix - encourage po intake - monitor lytes - pt off of fluids - pt overall has poor functional status
[2020-05-09] MEDS: MIRTAZAPINE 15 MG TABLET (FP) PO SCH (21:13)
[2020-05-10] MEDS ORDERED: DEXTROSE 5%-WATER 100 ML IVPB ONE ×3 (01:11→17:02)
[2020-05-10] MEDS ORDERED: MEROPENEM 500 MG VIAL (RESTRICTED TO ID) IVPB ONE ×3 (01:11→17:02)
[2020-05-10] MEDS: MEROPENEM 500 MG in DEXTROSE 5%-WATER 100 ML IVPB SCH ×3 (01:14→17:03)
[2020-05-10] MEDS ORDERED: PT OWN MED DRAWER 7, Y5N ONE ×2 (09:02→09:08)
[2020-05-10] MEDS: FUROSEMIDE 40 MG TABLET (FP) PO SCH (10:02)
[2020-05-10] MEDS: METOPROLOL TARTRATE 25 MG TABLET (FP) PO SCH ×2 (10:02→21:40)
[2020-05-10] MEDS: APIXABAN 2.5 MG TABLET PO SCH ×2 (10:02→21:40)
[2020-05-10] MEDS: COLLAGENASE CLOSTRIDIUM HIST. 30 GRAMS TUBE TP SCH (10:03)
[2020-05-10] MEDS: NYSTATIN POWDER 100,000 UNITS/GM - 15 GM TOPICAL POWDER TP SCH ×2 (10:03→21:40)
--- NOTE | 2020-05-10 10:33 | PN ---
Progress Note (short form) - Note Progress Note: PULMONARY NOW ON BIPAP AWAKE/LETHARGIC APPEARS CHRONICALLY ILL VSS/AFEBRILE Constitutional: Yes: NAD on VM Eyes: Yes: Conjunctiva Clear, EOM Intact HENT: Yes: Atraumatic, Normocephalic Neck: Yes: Supple, Trachea Midline Cardiovascular: Yes: Pulse Irregular Respiratory: Yes: Diminished, On Nasal O2, Rhonchi. No: Accessory Muscle Use, Rales, SOB, SOB on Exertion, Stridor, Tachypnea, Wheezes ...Inspection: Yes: WNL ...Clubbing: No Gastrointestinal: Yes: Normal Bowel Sounds, Soft, Abdomen, Obese Renal/: Yes: WNL Musculoskeletal: Yes: WNL Extremities: Yes: WNL Edema: Yes Peripheral Pulses WNL: Yes Integumentary: Yes: WNL Neurological: Yes: Non-focal ...Motor Strength: WNL Psychiatric: Yes: Oriented Labs: NOTED Chest X-ray: Report Reviewed, Image Reviewed Cat Scan: Report Reviewed, Image Reviewed Problem List - Problems (1) Atelectasis Code(s): J98.11 - ATELECTASIS (2) Pleural effusion Code(s): J90 - PLEURAL EFFUSION, NOT ELSEWHERE CLASSIFIED (3) Afib Code(s): I48.91 - UNSPECIFIED ATRIAL FIBRILLATION (4) Anemia Code(s): D64.9 - ANEMIA, UNSPECIFIED Qualifiers: Chronic kidney disease stage: stage 3 (moderate) (5) CHF exacerbation Code(s): I50.9 - HEART FAILURE, UNSPECIFIED (6) CKD (chronic kidney disease) Code(s): N18.9 - CHRONIC KIDNEY DISEASE, UNSPECIFIED (7) Dementia Code(s): F03.90 - UNSPECIFIED DEMENTIA WITHOUT BEHAVIORAL DISTURBANCE (8) GERD (gastroesophageal reflux disease) Code(s): K21.9 - GASTRO-ESOPHAGEAL REFLUX DISEASE WITHOUT ESOPHAGITIS NIPPV as needed ABX per ID Diuresis as needed Daily weights an Follow I & O VTE prophylaxis BD TX PRN Monitor off systemic steroids Palliative care consult requested Dr Lorenzo Howard
--- NOTE | 2020-05-10 11:22 | PN ---
Progress Note, Physician Chief Complaint: EVENTS AND NOTES REVIEWED ON TELEMETRY LETHARGIC POOR IV ACCESS - Current Medication List Current Medications: Active Medications Apixaban (Eliquis -) 2.5 mg PO BID [facility] Last Admin: 05/10/20 10:02 Dose: 2.5 mg Documented by: Collagenase (Santyl -) 1 applic TP DAILY [facility]; Protocol Last Admin: 05/10/20 10:03 Dose: 1 applic Documented by: Furosemide (Lasix -) 40 mg PO DAILY [facility] Last Admin: 05/10/20 10:02 Dose: 40 mg Documented by: Meropenem 500 mg/ Dextrose 100 mls @ 200 mls/hr IVPB Q8H-IV [facility] Last Admin: 05/10/20 10:02 Dose: 200 mls/hr Documented by: Metoprolol Tartrate (Lopressor -) 25 mg PO BID [facility] Last Admin: 05/10/20 10:02 Dose: 25 mg Documented by: Metoprolol Tartrate (Lopressor Injection -) 5 mg IVPUSH Q4H PRN PRN Reason: FOR HR > 130 Last Admin: 05/04/20 21:46 Dose: 5 mg Documented by: Mirtazapine (Remeron -) 15 mg PO HS [facility] Last Admin: 05/09/20 21:13 Dose: 15 mg Documented by: Nystatin (Nystop Powder -) 1 applic TP BID [facility] Last Admin: 05/10/20 10:03 Dose: 1 applic Documented by: - Objective Vital Signs: Vital Signs Temperature 97.8 F 05/10/20 06:00 Pulse Rate 109 H 05/10/20 06:00 Respiratory Rate 19 05/10/20 08:14 Blood Pressure 108/65 05/10/20 06:00 O2 Sat by Pulse Oximetry (%) 99 05/10/20 08:22 Constitutional: Yes: Severe Distress Cardiovascular: Yes: Pulse Irregular Respiratory: Yes: Diminished, On Nasal O2 Gastrointestinal: Yes: Soft Genitourinary: Yes: Incontinence Neurological: Yes: Pre-Existing Deficit Labs: CBC, BMP 05/08/20 10:20 05/08/20 10:20 INR, PTT INR 2.11 (0.83-1.09) H 05/03/20 11:09 Problem List - Problems (1) Atelectasis Code(s): J98.11 - ATELECTASIS (2) Bacteremia Code(s): R78.81 - BACTEREMIA (3) Failure to thrive Code(s): [id number] - (4) Pleural effusion Code(s): J90 - PLEURAL EFFUSION, NOT ELSEWHERE CLASSIFIED (5) Acute metabolic encephalopathy due to hypoglycemia Code(s): G93.41 - METABOLIC ENCEPHALOPATHY; E16.2 - HYPOGLYCEMIA, UNSPECIFIED (6) Acute respiratory failure with hypoxia and hypercapnia Code(s): J96.01 - ACUTE RESPIRATORY FAILURE WITH HYPOXIA; J96.02 - ACUTE RESPIRATORY FAILURE WITH HYPERCAPNIA (7) Dementia Code(s): F03.90 - UNSPECIFIED DEMENTIA WITHOUT BEHAVIORAL DISTURBANCE Qualifiers: Dementia type: unspecified type Dementia behavioral disturbance: without behavioral disturbance Qualified Code(s): F03.90 - Unspecified dementia without behavioral disturbance (8) Poor appetite Code(s): R63.0 - ANOREXIA (9) Urinary retention Code(s): R33.9 - RETENTION OF URINE, UNSPECIFIED Assessment/Plan FULL CODE ON TELE PALLIATIVE CARE CONSULT DAILY [facility] PT EVAL ON ELIQUIS MONITOR INPUT WOULD NOT PLACE CENTRAL LINE AT THIS POINT DUE TO POOR OVERALL PROGNOSIS. WILL DISCUSS WITH FAMILY TOMORROW TO ORDER HOSPICE
--- NOTE | 2020-05-10 13:24 | PN ---
Progress Note, Physician History of Present Illness: Pt seen and examined at bedside. She is awake and appears comfortable. - Current Medication List Current Medications: Active Medications Apixaban (Eliquis -) 2.5 mg PO BID [facility] Last Admin: 05/10/20 10:02 Dose: 2.5 mg Documented by: Collagenase (Santyl -) 1 applic TP DAILY [facility]; Protocol Last Admin: 05/10/20 10:03 Dose: 1 applic Documented by: Furosemide (Lasix -) 40 mg PO DAILY [facility] Last Admin: 05/10/20 10:02 Dose: 40 mg Documented by: Meropenem 500 mg/ Dextrose 100 mls @ 200 mls/hr IVPB Q8H-IV [facility] Last Admin: 05/10/20 10:02 Dose: 200 mls/hr Documented by: Metoprolol Tartrate (Lopressor -) 25 mg PO BID [facility] Last Admin: 05/10/20 10:02 Dose: 25 mg Documented by: Metoprolol Tartrate (Lopressor Injection -) 5 mg IVPUSH Q4H PRN PRN Reason: FOR HR > 130 Last Admin: 05/04/20 21:46 Dose: 5 mg Documented by: Mirtazapine (Remeron -) 15 mg PO HS [facility] Last Admin: 05/09/20 21:13 Dose: 15 mg Documented by: Nystatin (Nystop Powder -) 1 applic TP BID [facility] Last Admin: 05/10/20 10:03 Dose: 1 applic Documented by: - Objective Vital Signs: Vital Signs Temperature 98.7 F 05/10/20 10:00 Pulse Rate 123 H 05/10/20 10:00 Respiratory Rate 16 05/10/20 10:00 Blood Pressure 119/73 05/10/20 10:00 O2 Sat by Pulse Oximetry (%) 99 05/10/20 08:22 Constitutional: Yes: Calm Eyes: Yes: Conjunctiva Clear HENT: Yes: Atraumatic Neck: Yes: Supple Cardiovascular: Yes: S1, S2 Respiratory: Yes: On Venti-Mask Gastrointestinal: Yes: Soft Genitourinary: Yes: Incontinence Musculoskeletal: Yes: Muscle Weakness Edema: Yes Edema: LLE: 1+, RLE: 1+ Neurological: Yes: Confusion Labs: CBC, BMP 05/08/20 10:20 05/08/20 10:20 INR, PTT INR 2.11 (0.83-1.09) H 05/03/20 11:09 Assessment/Plan Current Medications Generic Name Dose Route Start Last Admin Trade Name Freq PRN Reason Stop Dose Admin Apixaban 2.5 mg 05/05/20 22:00 05/10/20 10:02 Eliquis - PO 2.5 mg BID [facility] Administration Collagenase 1 applic 05/03/20 10:00 05/10/20 10:03 Santyl - TP 1 applic DAILY [facility] Administration Protocol Furosemide 40 mg 05/06/20 12:15 05/10/20 10:02 Lasix - PO 40 mg DAILY [facility] Administration Meropenem 500 mg/ Dextrose 100 mls @ 200 mls/hr 05/04/20 18:00 05/10/20 10:02 IVPB 200 mls/hr Q8H-IV [facility] Administration Metoprolol Tartrate 25 mg 05/04/20 10:00 05/10/20 10:02 Lopressor - PO 25 mg BID [facility] Administration Metoprolol Tartrate 5 mg 05/03/20 17:55 05/04/20 21:46 Lopressor Injection - IVPUSH 5 mg Q4H PRN Administration FOR HR > 130 Mirtazapine 15 mg 05/02/20 22:00 05/09/20 21:13 Remeron - PO 15 mg HS [facility] Administration Nystatin 1 applic 05/02/20 22:45 05/10/20 10:03 Nystop Powder - TP 1 applic BID [facility] Administration Impression 1. POLINA 2. hyponatremia 3. altered mental status 4. copd 5. a-fib 6. gerd 7. hypoglycemia 8. chf 9. fluid overload 10. sepsis 11. liver cirrhosis 12. a-fib 13. hypokalemia 14. failure to thrive Plan - check cmp, ordered - cont lasix - encourage po intake - monitor lytes - pt off of fluids - pt overall has poor functional status
[2020-05-10] MEDS: MIRTAZAPINE 15 MG TABLET (FP) PO SCH (21:40)
[2020-05-11] MEDS ORDERED: DEXTROSE 5%-WATER 100 ML IVPB ONE (01:13)
[2020-05-11] MEDS ORDERED: MEROPENEM 500 MG VIAL (RESTRICTED TO ID) IVPB ONE (01:13)
[2020-05-11] MEDS: MEROPENEM 500 MG in DEXTROSE 5%-WATER 100 ML IVPB SCH ×2 (01:18→10:21)
--- NOTE | 2020-05-11 08:25 | PN ---
Progress Note, Physician - Current Medication List Current Medications: Active Medications Apixaban (Eliquis -) 2.5 mg PO BID [facility] Last Admin: 05/10/20 21:40 Dose: 2.5 mg Documented by: Collagenase (Santyl -) 1 applic TP DAILY [facility]; Protocol Last Admin: 05/10/20 10:03 Dose: 1 applic Documented by: Furosemide (Lasix -) 40 mg PO DAILY [facility] Last Admin: 05/10/20 10:02 Dose: 40 mg Documented by: Meropenem 500 mg/ Dextrose 100 mls @ 200 mls/hr IVPB Q8H-IV [facility] Last Admin: 05/11/20 01:18 Dose: 200 mls/hr Documented by: Metoprolol Tartrate (Lopressor -) 25 mg PO BID [facility] Last Admin: 05/10/20 21:40 Dose: 25 mg Documented by: Metoprolol Tartrate (Lopressor Injection -) 5 mg IVPUSH Q4H PRN PRN Reason: FOR HR > 130 Last Admin: 05/04/20 21:46 Dose: 5 mg Documented by: Mirtazapine (Remeron -) 15 mg PO HS [facility] Last Admin: 05/10/20 21:40 Dose: 15 mg Documented by: Nystatin (Nystop Powder -) 1 applic TP BID [facility] Last Admin: 05/10/20 21:40 Dose: 1 applic Documented by: - Objective Vital Signs: Vital Signs Temperature 97.6 F 05/11/20 07:00 Pulse Rate 108 H 05/11/20 07:00 Respiratory Rate 18 05/11/20 07:00 Blood Pressure 106/70 05/11/20 07:00 O2 Sat by Pulse Oximetry (%) 98 05/11/20 04:25 Cardiovascular: Yes: S1, S2 Respiratory: Yes: Regular, CTA Bilaterally Gastrointestinal: Yes: Normal Bowel Sounds, Soft. No: Tenderness Labs: CBC, BMP 05/08/20 10:20 05/08/20 10:20 INR, PTT INR 2.11 (0.83-1.09) H 05/03/20 11:09 Problem List - Problems (1) Hypernatremia Code(s): E87.0 - HYPEROSMOLALITY AND HYPERNATREMIA (2) Sepsis Code(s): A41.9 - SEPSIS, UNSPECIFIED ORGANISM Qualifiers: (3) Afib Code(s): I48.91 - UNSPECIFIED ATRIAL FIBRILLATION (4) CKD (chronic kidney disease) Code(s): N18.9 - CHRONIC KIDNEY DISEASE, UNSPECIFIED Assessment/Plan - Problems (1) Failure to thrive Assessment/Plan: -Ethics to consider DNR/DNR with 2 PC consent--Family to make decisions -megastrol -Continue mirtazapine Problems reviewed: Yes Code(s): KXM9176 - (2) POLINA (acute kidney injury) Assessment/Plan: -Nephrology on board -daily AM labs Problems reviewed: Yes Code(s): N17.9 - ACUTE KIDNEY FAILURE, UNSPECIFIED (3) Afib Assessment/Plan: -chronic, rate controlled -Eliquis discontinued last admission due to possible GI bleed and drop in her H/H -Eliquis restarted upon admission this time -will monitor her H/H closely -Decrease Eliquis dosage to 2.5 mg po bid given pt's age and Elevated Cr. -No concern for PE at this time Problems reviewed: Yes Code(s): I48.91 - UNSPECIFIED ATRIAL FIBRILLATION (4) Anemia Assessment/Plan: -chronic,2/2 to chronic blood loss Problems reviewed: Yes Code(s): D64.9 - ANEMIA, UNSPECIFIED Qualifiers: Chronic kidney disease stage: stage 3 (moderate) (5) Urinary retention Assessment/Plan: -Maintain hilliard catheter Problems reviewed: Yes Code(s): R33.9 - RETENTION OF URINE, UNSPECIFIED (6) Bacteremia Assessment/Plan: -On IV meropenem--ID follow up on duration -ID on board -Afebrile -Cultures: Microbiology 05/04/20 10:20 Blood - Peripheral Venous Blood Culture - Preliminary NO GROWTH OBTAINED AFTER 24 HOURS, INCUBATION TO CONTINUE FOR 4 DAYS. 05/04/20 10:38 Blood - Peripheral Venous Blood Culture - Preliminary NO GROWTH OBTAINED AFTER 24 HOURS, INCUBATION TO CONTINUE FOR 4 DAYS. 05/03/20 02:30 Groin - Left Gram Stain - Final 05/03/20 02:30 Groin - Left Wound Culture - Final Pseudomonas Aeruginosa Proteus Species Lactose Fermenting Neg Bacilli Presumptive Mrsa (Pbp2a Pos) Group D Strep Or Entero Coccus Group D Strep Or Entero Coccus#2 05/02/20 16:29 Blood - Peripheral Venous Blood Culture - Preliminary Mr S Aureus Staphylococcus Coagulase Neg 05/02/20 16:17 Blood - Peripheral Venous Blood Culture - Preliminary Staphylococcus Coagulase Neg 05/02/20 16:45 Urine - Urine Hilliard Urine Culture - Final Group D Strep Or Entero Coccus -Vanco on hold, elevated Vanco levels today Problems reviewed: Yes Code(s): R78.81 - BACTEREMIA PALLIATIVE CARE CONSULT
[2020-05-11] MEDS ORDERED: PT OWN MED DRAWER 7, Y5N ONE (09:35)
[2020-05-11] MEDS: FUROSEMIDE 40 MG TABLET (FP) PO SCH (09:44)
[2020-05-11] MEDS: APIXABAN 2.5 MG TABLET PO SCH (09:44)
[2020-05-11] MEDS: METOPROLOL TARTRATE 25 MG TABLET (FP) PO SCH (09:44)
[2020-05-11] MEDS: NYSTATIN POWDER 100,000 UNITS/GM - 15 GM TOPICAL POWDER TP SCH (09:45)
--- NOTE | 2020-05-11 11:51 | PN ---
Progress Note (short form) - Note Progress Note: PULMONARY States breathing is improving. Used BiPAP overnight. Vital Signs Period Temp Pulse Resp BP Sys/Mcgarry Pulse Ox Last 24 Hr 97.4 F-98.2 F 92-108 14-21 106-119/50-71 98-100 Gen: NAD at rest Heart: RRR Lung: decreased breath sounds at the bases Abd: soft, nontender Ext: trace edema Active Medications Apixaban (Eliquis -) 2.5 mg PO BID [facility] Last Admin: 05/11/20 09:44 Dose: 2.5 mg Documented by: Collagenase (Santyl -) 1 applic TP DAILY [facility]; Protocol Last Admin: 05/10/20 10:03 Dose: 1 applic Documented by: Furosemide (Lasix -) 40 mg PO DAILY [facility] Last Admin: 05/11/20 09:44 Dose: 40 mg Documented by: Meropenem 500 mg/ Dextrose 100 mls @ 200 mls/hr IVPB Q8H-IV [facility] Last Admin: 05/11/20 10:21 Dose: 200 mls/hr Documented by: Metoprolol Tartrate (Lopressor -) 25 mg PO BID [facility] Last Admin: 05/11/20 09:44 Dose: 25 mg Documented by: Metoprolol Tartrate (Lopressor Injection -) 5 mg IVPUSH Q4H PRN PRN Reason: FOR HR > 130 Last Admin: 05/04/20 21:46 Dose: 5 mg Documented by: Mirtazapine (Remeron -) 15 mg PO HS [facility] Last Admin: 05/10/20 21:40 Dose: 15 mg Documented by: Nystatin (Nystop Powder -) 1 applic TP BID [facility] Last Admin: 05/11/20 09:45 Dose: 1 applic Documented by: A/P Acute on Chronic Diastolic Heart Failure Volume Overload MRSA Bacteremia UTI Atrial Fibrillation COPD Liver Cirrhosis - continue lasix - monitor urine output, creatinine - continue antibiotics - BiPAP as needed - rate control - continue anticoagulation - O2 to keep SpO2 >90%
[2020-05-11 11:52] LABS: BASO % 1.8 % (0-2.0); HEMATOCRIT 24.8 % (32.4-45.2); HEMOGLOBIN 7.8 GM/dL (10.7-15.3); LYMPH % 14.6 % (8-40); MCH 27.7 pg (25.7-33.7); MCHC 31.4 g/dl (32.0-36.0); MEAN CELL VOLUME 88.3 fl (80-96); MEAN PLT VOLUME 8.3 fl (7.5-11.1); MONO % 7.4 % (3.8-10.2); NEUT % 64.2 % (42.8-82.8); PLATELET COUNT 192 K/MM3 (134-434); RBC 2.81 M/mm3 (3.60-5.2); WHITE BLOOD COUNT 8.7 K/mm3 (4.0-10.0)
[2020-05-11 12:25] LABS: ALBUMIN 1.4 g/dl (3.4-5.0); BILIRUBIN,TOTAL 0.5 mg/dL (0.2-1); BLOOD UREA NITROGEN 80.4 mg/dL (7-18); CALCIUM 8.3 mg/dL (8.5-10.1); CREATININE 2.3 mg/dL (0.55-1.3); TOT PROT 4.6 g/dl (6.4-8.2)
[2020-05-11 15:00] LABS: ANISOCYTOSIS 2+; MACROCYTOSIS 1+; OVALOCYTE 1+; PLATELET ESTIMATE NORMAL
[2020-05-11] MEDS: COLLAGENASE CLOSTRIDIUM HIST. 30 GRAMS TUBE TP SCH (15:33)
--- NOTE | 2020-05-11 17:29 | PN ---
Progress Note, Physician History of Present Illness: Pt seen and examined at bedside. She is awake and appears comfortable. - Current Medication List Current Medications: Active Medications Apixaban (Eliquis -) 2.5 mg PO BID [facility] Last Admin: 05/11/20 09:44 Dose: 2.5 mg Documented by: Collagenase (Santyl -) 1 applic TP DAILY [facility]; Protocol Last Admin: 05/11/20 15:33 Dose: 1 applic Documented by: Furosemide (Lasix -) 40 mg PO DAILY [facility] Last Admin: 05/11/20 09:44 Dose: 40 mg Documented by: Meropenem 500 mg/ Dextrose 100 mls @ 200 mls/hr IVPB Q8H-IV [facility] Last Admin: 05/11/20 10:21 Dose: 200 mls/hr Documented by: Metoprolol Tartrate (Lopressor -) 25 mg PO BID [facility] Last Admin: 05/11/20 09:44 Dose: 25 mg Documented by: Metoprolol Tartrate (Lopressor Injection -) 5 mg IVPUSH Q4H PRN PRN Reason: FOR HR > 130 Last Admin: 05/04/20 21:46 Dose: 5 mg Documented by: Mirtazapine (Remeron -) 15 mg PO HS [facility] Last Admin: 05/10/20 21:40 Dose: 15 mg Documented by: Nystatin (Nystop Powder -) 1 applic TP BID [facility] Last Admin: 05/11/20 09:45 Dose: 1 applic Documented by: - Objective Vital Signs: Vital Signs Temperature 98.3 F 05/11/20 14:45 Pulse Rate 100 H 05/11/20 14:45 Respiratory Rate 20 05/11/20 14:45 Blood Pressure 109/65 05/11/20 14:45 O2 Sat by Pulse Oximetry (%) 99 05/11/20 09:00 Constitutional: Yes: Calm Eyes: Yes: Conjunctiva Clear HENT: Yes: Atraumatic Neck: Yes: Supple Cardiovascular: Yes: S1, S2 Respiratory: Yes: CTA Bilaterally Gastrointestinal: Yes: Soft Genitourinary: Yes: WNL Musculoskeletal: Yes: WNL Edema: Yes Edema: LLE: 1+, RLE: 1+ Neurological: Yes: Oriented Psychiatric: Yes: Oriented Labs: CBC, BMP 05/11/20 11:10 05/11/20 11:10 INR, PTT INR 2.11 (0.83-1.09) H 05/03/20 11:09 Assessment/Plan Current Medications Generic Name Dose Route Start Last Admin Trade Name Freq PRN Reason Stop Dose Admin Apixaban 2.5 mg 05/05/20 22:00 05/11/20 09:44 Eliquis - PO 2.5 mg BID [facility] Administration Collagenase 1 applic 05/03/20 10:00 05/11/20 15:33 Santyl - TP 1 applic DAILY [facility] Administration Protocol Furosemide 40 mg 05/06/20 12:15 05/11/20 09:44 Lasix - PO 40 mg DAILY [facility] Administration Meropenem 500 mg/ Dextrose 100 mls @ 200 mls/hr 05/04/20 18:00 05/11/20 10:21 IVPB 200 mls/hr Q8H-IV [facility] Administration Metoprolol Tartrate 25 mg 05/04/20 10:00 05/11/20 09:44 Lopressor - PO 25 mg BID [facility] Administration Metoprolol Tartrate 5 mg 05/03/20 17:55 05/04/20 21:46 Lopressor Injection - IVPUSH 5 mg Q4H PRN Administration FOR HR > 130 Mirtazapine 15 mg 05/02/20 22:00 05/10/20 21:40 Remeron - PO 15 mg HS [facility] Administration Nystatin 1 applic 05/02/20 22:45 05/11/20 09:45 Nystop Powder - TP 1 applic BID [facility] Administration Impression 1. POLINA 2. hyponatremia 3. altered mental status 4. copd 5. a-fib 6. gerd 7. hypoglycemia 8. chf 9. fluid overload 10. sepsis 11. liver cirrhosis 12. a-fib 13. hypokalemia 14. failure to thrive Plan - labs reviewed - renal function stable - cont with lasix - encourage po inake - pt overall has poor functional status
[2020-05-11 22:43] LABS: ARTERIAL BLD GAS O2 SATURATION 99.8 mmHg (95-98); ARTERIAL BLOOD GAS BASE EXCESS 0.3 mmol/L (-2-2); ARTERIAL BLOOD GAS pH 7.369 (7.350-7.450)
[2020-05-11 22:45] LABS: ALLENS TEST POSITIVE
[2020-05-12] MEDS: NYSTATIN POWDER 100,000 UNITS/GM - 15 GM TOPICAL POWDER TP SCH ×3 (00:14→21:54)
[2020-05-12] MEDS: APIXABAN 2.5 MG TABLET PO SCH ×3 (00:14→21:54)
[2020-05-12] MEDS: METOPROLOL TARTRATE 25 MG TABLET (FP) PO SCH ×3 (00:14→21:54)
[2020-05-12] MEDS: MIRTAZAPINE 15 MG TABLET (FP) PO SCH ×2 (00:14→21:54)
--- NOTE | 2020-05-12 01:22 | PN ---
Progress Note (short form) - Note Progress Note: Episodic Note 05/11/2020 Called by nurse patient has hypoxia(oxygen saturation in mis 80's) on venti mask and she was placed on BIPAP. Heart rate was rapid and systolic blood pressure was in the 90's. She was placed back on telemetry. She continued to have hypxoxia with BIPAP. ABG done showing pH 7.36, pco2 45.6 and O2sat 99.8. Respiratory decreased FI02 to 50%. Patient was seen at bedside. She is easily arousable to voice and responsive. She is nondyspneic. She denies shortness of breath and appears comfortable at this time. Goals of care/ DNR/DNI status needs to be discussed with legal family guardian in am. Visit type - Emergency Visit Emergency Visit: Yes ED Registration Date: 05/02/20 Care time: The patient presented to the Emergency Department on the above date and was hospitalized for further evaluation of their emergent condition. - New Patient This patient is new to me today: Yes Date on this admission: 05/12/20 - Critical Care Critical Care patient: No
--- NOTE | 2020-05-12 07:24 | PN ---
Progress Note, Physician History of Present Illness: PULMONARY LETHARGIC ON BIPAP,-RESP DISTRESS - Current Medication List Current Medications: Active Medications Apixaban (Eliquis -) 2.5 mg PO BID [facility] Last Admin: 05/12/20 00:14 Dose: 2.5 mg Documented by: Collagenase (Santyl -) 1 applic TP DAILY [facility]; Protocol Last Admin: 05/11/20 15:33 Dose: 1 applic Documented by: Furosemide (Lasix -) 40 mg PO DAILY [facility] Last Admin: 05/11/20 09:44 Dose: 40 mg Documented by: Metoprolol Tartrate (Lopressor -) 25 mg PO BID [facility] Last Admin: 05/12/20 00:14 Dose: Not Given Documented by: Metoprolol Tartrate (Lopressor Injection -) 5 mg IVPUSH Q4H PRN PRN Reason: FOR HR > 130 Last Admin: 05/04/20 21:46 Dose: 5 mg Documented by: Mirtazapine (Remeron -) 15 mg PO HS [facility] Last Admin: 05/12/20 00:14 Dose: 15 mg Documented by: Nystatin (Nystop Powder -) 1 applic TP BID [facility] Last Admin: 05/12/20 00:14 Dose: 1 applic Documented by: - Objective Vital Signs: Vital Signs Temperature 97.8 F 05/12/20 06:00 Pulse Rate 109 H 05/12/20 06:00 Respiratory Rate 22 H 05/12/20 06:00 Blood Pressure 104/53 L 05/12/20 06:00 O2 Sat by Pulse Oximetry (%) 95 05/11/20 21:00 Constitutional: Yes: Well Nourished, Other (LETHARGGIC) Eyes: Yes: WNL HENT: Yes: WNL Cardiovascular: Yes: Pulse Irregular, S1, S2 Respiratory: Yes: Diminished Gastrointestinal: Yes: Normal Bowel Sounds, Soft Extremities: Yes: WNL Edema: Yes Labs: CBC, BMP Problem List - Problems (1) Atelectasis Code(s): J98.11 - ATELECTASIS (2) Bacteremia Code(s): R78.81 - BACTEREMIA (3) Pleural effusion Code(s): J90 - PLEURAL EFFUSION, NOT ELSEWHERE CLASSIFIED (4) Afib Code(s): I48.91 - UNSPECIFIED ATRIAL FIBRILLATION (5) CKD (chronic kidney disease) Code(s): N18.9 - CHRONIC KIDNEY DISEASE, UNSPECIFIED (6) GERD (gastroesophageal reflux disease) Code(s): K21.9 - GASTRO-ESOPHAGEAL REFLUX DISEASE WITHOUT ESOPHAGITIS (7) Acute on chronic diastolic (congestive) heart failure Code(s): I50.33 - ACUTE ON CHRONIC DIASTOLIC (CONGESTIVE) HEART FAILURE Assessment/Plan A/P Acute on Chronic Diastolic Heart Failure Volume Overload MRSA Bacteremia UTI Atrial Fibrillation COPD Liver Cirrhosis - lasix - monitor urine output, creatinine - continue antibiotics - BiPAP as needed - rate control - continue anticoagulation - O2 to keep SpO2 >90% - Frandy DOTY
[2020-05-12] MEDS: FUROSEMIDE 40 MG TABLET (FP) PO SCH (09:07)
[2020-05-12] MEDS: COLLAGENASE CLOSTRIDIUM HIST. 30 GRAMS TUBE TP SCH (11:17)
--- NOTE | 2020-05-12 15:54 | PN ---
Progress Note, Physician Chief Complaint: POLINA Anemia Hypernatremia Failure to thrive Pleural effusion Bacteremia Left pleural effusion History of Present Illness: NAD lethargic Hypoxic overnight Poor oral intake - Current Medication List Current Medications: Active Medications Apixaban (Eliquis -) 2.5 mg PO BID [facility] Last Admin: 05/12/20 09:07 Dose: 2.5 mg Documented by: Collagenase (Santyl -) 1 applic TP DAILY [facility]; Protocol Last Admin: 05/12/20 11:17 Dose: 1 applic Documented by: Furosemide (Lasix -) 40 mg PO DAILY [facility] Last Admin: 05/12/20 09:07 Dose: 40 mg Documented by: Metoprolol Tartrate (Lopressor -) 25 mg PO BID [facility] Last Admin: 05/12/20 09:07 Dose: 25 mg Documented by: Metoprolol Tartrate (Lopressor Injection -) 5 mg IVPUSH Q4H PRN PRN Reason: FOR HR > 130 Last Admin: 05/04/20 21:46 Dose: 5 mg Documented by: Mirtazapine (Remeron -) 15 mg PO HS [facility] Last Admin: 05/12/20 00:14 Dose: 15 mg Documented by: Nystatin (Nystop Powder -) 1 applic TP BID [facility] Last Admin: 05/12/20 11:17 Dose: 1 applic Documented by: - Objective Vital Signs: Vital Signs Temperature 97.4 F L 05/12/20 13:42 Pulse Rate 100 H 05/12/20 13:42 Respiratory Rate 24 H 05/12/20 13:42 Blood Pressure 83/44 L 05/12/20 13:42 O2 Sat by Pulse Oximetry (%) 96 05/12/20 08:39 Constitutional: Yes: Well Nourished, No Distress, Calm Cardiovascular: Yes: Regular Rate and Rhythm Respiratory: Yes: Regular, Diminished Gastrointestinal: Yes: Normal Bowel Sounds, Soft, Abdomen, Obese Genitourinary: Yes: Incontinence Musculoskeletal: Yes: Muscle Weakness Edema: Yes Edema: LLE: 3+, RLE: 3+ Peripheral Pulses WNL: Yes Neurological: Yes: Alert, Lethargy Psychiatric: Yes: Alert Labs: CBC, BMP 05/11/20 11:10 05/11/20 11:10 INR, PTT INR 2.11 (0.83-1.09) H 05/03/20 11:09 Problem List - Problems (1) Failure to thrive Assessment/Plan: -Ethics to consider DNR/DNR with 2 PC consent -megastrol -Continue mirtazapine -Seen by Palliative care Problems reviewed: Yes Code(s): [id number] - (2) POLINA (acute kidney injury) Assessment/Plan: -Nephrology on board -daily AM labs Problems reviewed: Yes Code(s): N17.9 - ACUTE KIDNEY FAILURE, UNSPECIFIED (3) Afib Assessment/Plan: -chronic, rate controlled -Eliquis discontinued last admission due to possible GI bleed and drop in her H/H -Eliquis restarted upon admission this time -will monitor her H/H closely -Decrease Eliquis dosage to 2.5 mg po bid given pt's age and Elevated Cr. -No concern for PE at this time Problems reviewed: Yes Code(s): I48.91 - UNSPECIFIED ATRIAL FIBRILLATION (4) Anemia Assessment/Plan: -chronic,2/2 to chronic blood loss Problems reviewed: Yes Code(s): D64.9 - ANEMIA, UNSPECIFIED Qualifiers: Chronic kidney disease stage: stage 3 (moderate) (5) Urinary retention Assessment/Plan: -Maintain hilliard catheter Problems reviewed: Yes Code(s): R33.9 - RETENTION OF URINE, UNSPECIFIED (6) Bacteremia Assessment/Plan: -Finished On IV meropenem -ID on board -Afebrile -Cultures: Microbiology 05/04/20 10:20 Blood - Peripheral Venous Blood Culture - Preliminary NO GROWTH OBTAINED AFTER 24 HOURS, INCUBATION TO CONTINUE FOR 4 DAYS. 05/04/20 10:38 Blood - Peripheral Venous Blood Culture - Preliminary NO GROWTH OBTAINED AFTER 24 HOURS, INCUBATION TO CONTINUE FOR 4 DAYS. 05/03/20 02:30 Groin - Left Gram Stain - Final 05/03/20 02:30 Groin - Left Wound Culture - Final Pseudomonas Aeruginosa Proteus Species Lactose Fermenting Neg Bacilli Presumptive Mrsa (Pbp2a Pos) Group D Strep Or Entero Coccus Group D Strep Or Entero Coccus#2 05/02/20 16:29 Blood - Peripheral Venous Blood Culture - Preliminary S Aureus Staphylococcus Coagulase Neg 05/02/20 16:17 Blood - Peripheral Venous Blood Culture - Preliminary Staphylococcus Coagulase Neg 05/02/20 16:45 Urine - Urine Hilliard Urine Culture - Final Group D Strep Or Entero Coccus Problems reviewed: Yes Code(s): R78.81 - BACTEREMIA Assessment/Plan See problem list Await ethics consult COVID 19 PCR in preparation of discharge back to SNF
--- NOTE | 2020-05-12 16:34 | PN ---
Progress Note, Physician History of Present Illness: Pt seen and examined at bedside. No great change in mental status. Her bp is low today. - Current Medication List Current Medications: Active Medications Apixaban (Eliquis -) 2.5 mg PO BID [facility] Last Admin: 05/12/20 09:07 Dose: 2.5 mg Documented by: Collagenase (Santyl -) 1 applic TP DAILY [facility]; Protocol Last Admin: 05/12/20 11:17 Dose: 1 applic Documented by: Furosemide (Lasix -) 40 mg PO DAILY [facility] Last Admin: 05/12/20 09:07 Dose: 40 mg Documented by: Metoprolol Tartrate (Lopressor -) 25 mg PO BID [facility] Last Admin: 05/12/20 09:07 Dose: 25 mg Documented by: Metoprolol Tartrate (Lopressor Injection -) 5 mg IVPUSH Q4H PRN PRN Reason: FOR HR > 130 Last Admin: 05/04/20 21:46 Dose: 5 mg Documented by: Mirtazapine (Remeron -) 15 mg PO HS [facility] Last Admin: 05/12/20 00:14 Dose: 15 mg Documented by: Nystatin (Nystop Powder -) 1 applic TP BID [facility] Last Admin: 05/12/20 11:17 Dose: 1 applic Documented by: - Objective Vital Signs: Vital Signs Temperature 97.4 F L 05/12/20 13:42 Pulse Rate 100 H 05/12/20 13:42 Respiratory Rate 24 H 05/12/20 13:42 Blood Pressure 83/44 L 05/12/20 13:42 O2 Sat by Pulse Oximetry (%) 96 05/12/20 08:39 Constitutional: Yes: Calm Eyes: Yes: Conjunctiva Clear HENT: Yes: Atraumatic Cardiovascular: Yes: S1, S2 Respiratory: Yes: On Nasal O2 Gastrointestinal: Yes: Soft Genitourinary: Yes: Incontinence Edema: Yes Neurological: Yes: Confusion Labs: CBC, BMP 05/11/20 11:10 05/11/20 11:10 INR, PTT INR 2.11 (0.83-1.09) H 05/03/20 11:09 Assessment/Plan Current Medications Generic Name Dose Route Start Last Admin Trade Name Freq PRN Reason Stop Dose Admin Apixaban 2.5 mg 05/05/20 22:00 05/12/20 09:07 Eliquis - PO 2.5 mg BID [facility] Administration Collagenase 1 applic 05/03/20 10:00 05/12/20 11:17 Santyl - TP 1 applic DAILY [facility] Administration Protocol Furosemide 40 mg 05/06/20 12:15 05/12/20 09:07 Lasix - PO 40 mg DAILY [facility] Administration Metoprolol Tartrate 25 mg 05/04/20 10:00 05/12/20 09:07 Lopressor - PO 25 mg BID [facility] Administration Metoprolol Tartrate 5 mg 05/03/20 17:55 05/04/20 21:46 Lopressor Injection - IVPUSH 5 mg Q4H PRN Administration FOR HR > 130 Mirtazapine 15 mg 05/02/20 22:00 05/12/20 00:14 Remeron - PO 15 mg HS [facility] Administration Nystatin 1 applic 05/02/20 22:45 05/12/20 11:17 Nystop Powder - TP 1 applic BID [facility] Administration Impression 1. POLINA 2. hyponatremia 3. altered mental status 4. copd 5. a-fib 6. gerd 7. hypoglycemia 8. chf 9. fluid overload 10. sepsis 11. liver cirrhosis 12. a-fib 13. hypokalemia 14. failure to thrive Plan - will give a bolus as she is hypotensive - monitor bp - hold lasix dose in am if bp is low - encourage po inake - pt is clinically doing poorly
[2020-05-12] MEDS ORDERED: SODIUM CHLORIDE 250 ML IV ONE (19:30)
--- NOTE | 2020-05-13 07:49 | PN ---
Progress Note, Physician History of Present Illness: pulmonary alert on bipap,comfortable,-resp distress - Current Medication List Current Medications: Active Medications Apixaban (Eliquis -) 2.5 mg PO BID [facility] Last Admin: 05/12/20 21:54 Dose: 2.5 mg Documented by: Collagenase (Santyl -) 1 applic TP DAILY [facility]; Protocol Last Admin: 05/12/20 11:17 Dose: 1 applic Documented by: Furosemide (Lasix -) 40 mg PO DAILY [facility] Last Admin: 05/12/20 09:07 Dose: 40 mg Documented by: Metoprolol Tartrate (Lopressor -) 25 mg PO BID [facility] Last Admin: 05/12/20 21:54 Dose: 25 mg Documented by: Metoprolol Tartrate (Lopressor Injection -) 5 mg IVPUSH Q4H PRN PRN Reason: FOR HR > 130 Last Admin: 05/04/20 21:46 Dose: 5 mg Documented by: Mirtazapine (Remeron -) 15 mg PO HS [facility] Last Admin: 05/12/20 21:54 Dose: 15 mg Documented by: Nystatin (Nystop Powder -) 1 applic TP BID [facility] Last Admin: 05/12/20 21:54 Dose: 1 applic Documented by: - Objective Vital Signs: Vital Signs Temperature 98.6 F 05/13/20 01:54 Pulse Rate 95 H 05/13/20 01:54 Respiratory Rate 22 H 05/13/20 01:54 Blood Pressure 110/58 L 05/13/20 01:54 O2 Sat by Pulse Oximetry (%) 97 05/13/20 00:16 Constitutional: Yes: Well Nourished, Calm Eyes: Yes: WNL HENT: Yes: WNL Neck: Yes: WNL Cardiovascular: Yes: Pulse Irregular, S1, S2 Respiratory: Yes: Diminished, On BiPap Gastrointestinal: Yes: Normal Bowel Sounds, Soft Extremities: Yes: WNL Edema: Yes Labs: CBC, BMP 05/11/20 11:10 05/11/20 11:10 INR, PTT INR 2.11 (0.83-1.09) H 05/03/20 11:09 Problem List - Problems (1) Atelectasis Code(s): J98.11 - ATELECTASIS (2) Bacteremia Code(s): R78.81 - BACTEREMIA (3) Pleural effusion Code(s): J90 - PLEURAL EFFUSION, NOT ELSEWHERE CLASSIFIED (4) Afib Code(s): I48.91 - UNSPECIFIED ATRIAL FIBRILLATION (5) CKD (chronic kidney disease) Code(s): N18.9 - CHRONIC KIDNEY DISEASE, UNSPECIFIED (6) GERD (gastroesophageal reflux disease) Code(s): K21.9 - GASTRO-ESOPHAGEAL REFLUX DISEASE WITHOUT ESOPHAGITIS (7) Acute on chronic diastolic (congestive) heart failure Code(s): I50.33 - ACUTE ON CHRONIC DIASTOLIC (CONGESTIVE) HEART FAILURE Assessment/Plan A/P Acute on Chronic Diastolic Heart Failure Volume Overload improving MRSA Bacteremia UTI Atrial Fibrillation COPD Liver Cirrhosis - lasix - monitor urine output, creatinine,lytes,cbc - continue antibiotics - BiPAP as needed - rate control - continue anticoagulation - O2 to keep SpO2 >90% - Frandy DOTY
--- NOTE | 2020-05-13 09:49 | PN ---
Progress Note, Physician - Current Medication List Current Medications: Active Medications Apixaban (Eliquis -) 2.5 mg PO BID [facility] Last Admin: 05/12/20 21:54 Dose: 2.5 mg Documented by: Collagenase (Santyl -) 1 applic TP DAILY [facility]; Protocol Last Admin: 05/12/20 11:17 Dose: 1 applic Documented by: Furosemide (Lasix -) 40 mg PO DAILY [facility] Last Admin: 05/12/20 09:07 Dose: 40 mg Documented by: Metoprolol Tartrate (Lopressor -) 25 mg PO BID [facility] Last Admin: 05/12/20 21:54 Dose: 25 mg Documented by: Metoprolol Tartrate (Lopressor Injection -) 5 mg IVPUSH Q4H PRN PRN Reason: FOR HR > 130 Last Admin: 05/04/20 21:46 Dose: 5 mg Documented by: Mirtazapine (Remeron -) 15 mg PO HS [facility] Last Admin: 05/12/20 21:54 Dose: 15 mg Documented by: Nystatin (Nystop Powder -) 1 applic TP BID [facility] Last Admin: 05/12/20 21:54 Dose: 1 applic Documented by: - Objective Vital Signs: Vital Signs Temperature 98.3 F 05/13/20 06:00 Pulse Rate 127 H 05/13/20 06:00 Respiratory Rate 22 H 05/13/20 06:00 Blood Pressure 100/69 05/13/20 06:00 O2 Sat by Pulse Oximetry (%) 97 05/13/20 00:16 Cardiovascular: Yes: Regular Rate and Rhythm Respiratory: Yes: Regular, CTA Bilaterally Gastrointestinal: Yes: Normal Bowel Sounds, Soft Labs: CBC, BMP 05/11/20 11:10 05/11/20 11:10 INR, PTT INR 2.11 (0.83-1.09) H 05/03/20 11:09 Problem List - Problems (1) Hypernatremia Code(s): E87.0 - HYPEROSMOLALITY AND HYPERNATREMIA (2) Sepsis Code(s): A41.9 - SEPSIS, UNSPECIFIED ORGANISM Qualifiers: (3) Afib Code(s): I48.91 - UNSPECIFIED ATRIAL FIBRILLATION (4) CKD (chronic kidney disease) Code(s): N18.9 - CHRONIC KIDNEY DISEASE, UNSPECIFIED Assessment/Plan - Problems (1) Failure to thrive Assessment/Plan: -megastrol -Continue mirtazapine -Seen by Palliative care Problems reviewed: Yes Code(s): [id number] - (2) POLINA (acute kidney injury) Assessment/Plan: -Nephrology on board -daily AM labs Problems reviewed: Yes Code(s): N17.9 - ACUTE KIDNEY FAILURE, UNSPECIFIED (3) Afib Assessment/Plan: -chronic, rate controlled -Eliquis discontinued last admission due to possible GI bleed and drop in her H/H -Eliquis restarted upon admission this time -will monitor her H/H closely -Decrease Eliquis dosage to 2.5 mg po bid given pt's age and Elevated Cr. -No concern for PE at this time Problems reviewed: Yes Code(s): I48.91 - UNSPECIFIED ATRIAL FIBRILLATION (4) Anemia Assessment/Plan: -chronic,2/2 to chronic blood loss Problems reviewed: Yes Code(s): D64.9 - ANEMIA, UNSPECIFIED Qualifiers: Chronic kidney disease stage: stage 3 (moderate) (5) Urinary retention Assessment/Plan: -Maintain hilliard catheter Problems reviewed: Yes Code(s): R33.9 - RETENTION OF URINE, UNSPECIFIED (6) Bacteremia Assessment/Plan: -Finished On IV meropenem -ID on board -Afebrile -Cultures: Microbiology 05/04/20 10:20 Blood - Peripheral Venous Blood Culture - Preliminary NO GROWTH OBTAINED AFTER 24 HOURS, INCUBATION TO CONTINUE FOR 4 DAYS. 05/04/20 10:38 Blood - Peripheral Venous Blood Culture - Preliminary NO GROWTH OBTAINED AFTER 24 HOURS, INCUBATION TO CONTINUE FOR 4 DAYS. 05/03/20 02:30 Groin - Left Gram Stain - Final 05/03/20 02:30 Groin - Left Wound Culture - Final Pseudomonas Aeruginosa Proteus Species Lactose Fermenting Neg Bacilli Presumptive Mrsa (Pbp2a Pos) Group D Strep Or Entero Coccus Group D Strep Or Entero Coccus#2 05/02/20 16:29 Blood - Peripheral Venous Blood Culture - Preliminary S Aureus Staphylococcus Coagulase Neg 05/02/20 16:17 Blood - Peripheral Venous Blood Culture - Preliminary Staphylococcus Coagulase Neg 05/02/20 16:45 Urine - Urine Hilliard Urine Culture - Final Group D Strep Or Entero Coccus Problems reviewed: Yes Code(s): R78.81 - BACTEREMIA COVID 19 PCR in preparation of discharge back to SNF
[2020-05-13] MEDS: FUROSEMIDE 40 MG TABLET (FP) PO SCH (10:58)
[2020-05-13] MEDS: METOPROLOL TARTRATE 25 MG TABLET (FP) PO SCH ×2 (10:58→21:04)
[2020-05-13] MEDS: APIXABAN 2.5 MG TABLET PO SCH ×2 (10:58→21:04)
[2020-05-13] MEDS: NYSTATIN POWDER 100,000 UNITS/GM - 15 GM TOPICAL POWDER TP SCH ×2 (10:59→21:09)
[2020-05-13] MEDS: COLLAGENASE CLOSTRIDIUM HIST. 30 GRAMS TUBE TP SCH (10:59)
--- NOTE | 2020-05-13 12:39 | PN ---
Progress Note, Physician History of Present Illness: Pt seen and examined at bedside. No great change in status. - Current Medication List Current Medications: Active Medications Apixaban (Eliquis -) 2.5 mg PO BID [facility] Last Admin: 05/13/20 10:58 Dose: 2.5 mg Documented by: Collagenase (Santyl -) 1 applic TP DAILY [facility]; Protocol Last Admin: 05/13/20 10:59 Dose: 1 applic Documented by: Furosemide (Lasix -) 40 mg PO DAILY [facility] Last Admin: 05/13/20 10:58 Dose: 40 mg Documented by: Metoprolol Tartrate (Lopressor -) 25 mg PO BID [facility] Last Admin: 05/13/20 10:58 Dose: 25 mg Documented by: Metoprolol Tartrate (Lopressor Injection -) 5 mg IVPUSH Q4H PRN PRN Reason: FOR HR > 130 Last Admin: 05/04/20 21:46 Dose: 5 mg Documented by: Mirtazapine (Remeron -) 15 mg PO HS [facility] Last Admin: 05/12/20 21:54 Dose: 15 mg Documented by: Nystatin (Nystop Powder -) 1 applic TP BID [facility] Last Admin: 05/13/20 10:59 Dose: 1 applic Documented by: - Objective Vital Signs: Vital Signs Temperature 99.2 F 05/13/20 10:30 Pulse Rate 122 H 05/13/20 10:30 Respiratory Rate 21 H 05/13/20 10:30 Blood Pressure 132/66 05/13/20 10:30 O2 Sat by Pulse Oximetry (%) 97 05/13/20 00:16 Constitutional: Yes: Calm Eyes: Yes: Conjunctiva Clear HENT: Yes: Atraumatic Neck: Yes: Supple Cardiovascular: Yes: S1, S2 Respiratory: Yes: On BiPap Gastrointestinal: Yes: Soft Genitourinary: Yes: Incontinence Edema: Yes Edema: LLE: 1+, RLE: 1+ Neurological: Yes: Confusion Labs: CBC, BMP 05/11/20 11:10 05/11/20 11:10 INR, PTT INR 2.11 (0.83-1.09) H 05/03/20 11:09 Assessment/Plan Current Medications Generic Name Dose Route Start Last Admin Trade Name Freq PRN Reason Stop Dose Admin Apixaban 2.5 mg 05/05/20 22:00 05/13/20 10:58 Eliquis - PO 2.5 mg BID [facility] Administration Collagenase 1 applic 05/03/20 10:00 05/13/20 10:59 Santyl - TP 1 applic DAILY [facility] Administration Protocol Furosemide 40 mg 05/06/20 12:15 05/13/20 10:58 Lasix - PO 40 mg DAILY [facility] Administration Metoprolol Tartrate 25 mg 05/04/20 10:00 05/13/20 10:58 Lopressor - PO 25 mg BID [facility] Administration Metoprolol Tartrate 5 mg 05/03/20 17:55 05/04/20 21:46 Lopressor Injection - IVPUSH 5 mg Q4H PRN Administration FOR HR > 130 Mirtazapine 15 mg 05/02/20 22:00 05/12/20 21:54 Remeron - PO 15 mg HS [facility] Administration Nystatin 1 applic 05/02/20 22:45 05/13/20 10:59 Nystop Powder - TP 1 applic BID [facility] Administration Impression 1. POLINA 2. hyponatremia 3. altered mental status 4. copd 5. a-fib 6. gerd 7. hypoglycemia 8. chf 9. fluid overload 10. sepsis 11. liver cirrhosis 12. a-fib 13. hypokalemia 14. failure to thrive Plan - bp improving - pt required fluid bolus for hypotension yesterday - encourage po intake - lasix po, hold if intake is poor - encourage po inake - pt is clinically doing poorly
[2020-05-13] MEDS ORDERED: SODIUM CHLORIDE 250 ML IV ONE (14:15)
--- NOTE | 2020-05-13 15:24 | CONSULT ---
- Consultation REQUESTING PROVIDER: Garland OTERO CONSULT REQUEST: We have been asked to surgically evaluate this patient for evaluation and management of a pressure ulcer of the sacrum that she came from the [place] with; she was admitted 05/02/20. PCP:Martha Haque HISTORY OF PRESENT ILLNESS: obtained from the chart and from the nursing staff PMHx: chart reviewed PSHx: chart reviewed Home Medications Medication Instructions Recorded Dronabinol [Marinol -] 2.5 mg PO DAILY capsule 04/10/20 Mirtazapine [Remeron -] 15 mg PO HS tablet 04/10/20 Furosemide [Lasix -] 60 mg PO DAILY tablet 04/29/20 Potassium Chloride [Klor-Con 10] 10 meq PO DAILY #30 tablet.er 04/29/20 predniSONE [Deltasone -] 10 mg PO DAILY tablet 04/29/20 Admelog Solostar See Protocol 05/02/20 Bacitracin - [Bacitracin Topical 1 applic TP BID 05/02/20 Ointment -] Omeprazole Magnesium [Prilosec] 40 mg PO BID 05/02/20 Albuterol 2.5/Ipratropium 0.5 1 amp NEB BID 05/03/20 [Duoneb -] Silver Sulfadiazine 1% Top Cr 1 applic TD BID 05/03/20 [Silvadene -] Allergies Allergy/AdvReac Type Severity Reaction Status Date / Time bee pollen Allergy Unknown Verified 05/02/20 16:18 ceftriaxone Allergy Verified 05/02/20 16:18 Tetanus Vaccines and Toxoid Allergy Verified 05/02/20 16:18 REVIEW OF SYSTEMS: reviewed from the chart; the patient cannot cooperate CONSTITUTIONAL: Absent: fever, chills, diaphoresis, generalized weakness, malaise, loss of appetite, weight change CARDIOVASCULAR: Absent: chest pain, syncope, palpitations, irregular heart rate, lightheadedness, peripheral edema RESPIRATORY: Absent: cough, shortness of breath, dyspnea with exertion, wheezing, stridor, hemoptysis GASTROINTESTINAL: Absent: abdominal pain, abdominal distension, nausea, vomiting, diarrhea, constipation, melena, hematochezia GENITOURINARY: Absent: dysuria, frequency, urgency, hesitancy, hematuria, flank pain, genital p ain MUSCULOSKELETAL: Absent: myalgia, arthralgia, joint swelling, back pain, neck pain SKIN: Absent: rash, itching, pallor HEMATOLOGIC/IMMUNOLOGIC: Absent: easy bleeding, easy bruising, lymphadenopathy NEUROLOGIC: Absent: headache, focal weakness, paresthesias, dizziness, unsteady gait, seizure, mental status changes, bladder or bowel incontinence PSYCHIATRIC: Absent: anxiety, depression, suicidal or homicidal ideation, hallucinations. PHYSICAL EXAM: GENERAL: Awake, alert, and fully oriented, in no acute distress. HEAD: Normal with no signs of trauma. EYES: PERRL, sclera anicteric, conjunctiva clear. NECK: Normal ROM, supple without lymphadenopathy, JVD, or masses. ABDOMEN: Soft, nontender, not distended, normoactive bowel sounds, no guarding, no rebound, no masses. No organomegaly. MUSCULOSKELETAL: Normal ROM at all joints. No bony deformities or tenderness. No CVA tenderness. UPPER EXTREMITIES: 2+ pulses, warm, well-perfused. No cyanosis. Cap refill <2 seconds. No peripheral edema. LOWER EXTREMITIES: 2+ pulses, warm, well-perfused. No calf tenderness. No peripheral edema. NEUROLOGICAL: Normal speech, gait not observed. PSYCH: Cooperative. Good eye contact. Appropriate mood and affect. SKIN: Stage II sacral ulcer 5.0 cm. x 2.5 cm.w/minimal slough and right buttock abrasion epidermal breakdown. Vital Signs Temperature 97.9 F 05/13/20 14:32 Pulse Rate 107 H 05/13/20 14:32 Respiratory Rate 22 H 05/13/20 14:32 Blood Pressure 87/45 L 05/13/20 14:32 O2 Sat by Pulse Oximetry (%) 97 05/13/20 15:15 Lab Results WBC 8.7 K/mm3 (4.0-10.0) 05/11/20 11:10 RBC 2.81 M/mm3 (3.60-5.2) L 05/11/20 11:10 Hgb 7.8 GM/dL (10.7-15.3) L 05/11/20 11:10 Hct 24.8 % (32.4-45.2) L 05/11/20 11:10 MCV 88.3 fl (80-96) 05/11/20 11:10 MCHC 31.4 g/dl (32.0-36.0) L 05/11/20 11:10 RDW 21.0 % (11.6-15.6) H 05/11/20 11:10 Plt Count 192 K/MM3 (134-434) D 05/11/20 11:10 INR 2.11 (0.83-1.09) H 05/03/20 11:09 Sodium 145 mmol/L (136-145) 05/11/20 11:10 Potassium 4.0 mmol/L (3.5-5.1) 05/11/20 11:10 Chloride 106 mmol/L (98-107) 05/11/20 11:10 Carbon Dioxide 32 mmol/L (21-32) 05/11/20 11:10 Anion Gap 7 MMOL/L (8-16) L 05/11/20 11:10 BUN 80.4 mg/dL (7-18) H 05/11/20 11:10 Creatinine 2.3 mg/dL (0.55-1.3) H 05/11/20 11:10 Random Glucose 94 mg/dL (74-106) 05/11/20 11:10 Calcium 8.3 mg/dL (8.5-10.1) L 05/11/20 11:10 IMP: combination Stage I and Stage II sacral pressure ulcers. PLAN: Santyl to deep sacral ulcer BID and apply Xeroform gauze over the Stage I area tissue abrasion or Versatil; will f/u as needed. Madi Cobos MD FACS
[2020-05-13] MEDS: MIRTAZAPINE 15 MG TABLET (FP) PO SCH (21:04)
--- NOTE | 2020-05-14 07:13 | PN ---
Progress Note (short form) - Note Progress Note: Microblog received from nurse patient had large grossly bloody bowel movement. On arrival patient lying in bed no acute distress. Denies dizziness/lightheadedness/vertigo/nausea. as per nurse patient had 1 episode of dark emesis which may of been due to meal at dinner plan; noted patient on eloquis holding morning dose patient has not received labs since 05/11 will order cbc Vital sign show mild hypotension will administer 250mL bolus of NS Continue to monitor vitals
[2020-05-14] MEDS ORDERED: SODIUM CHLORIDE 250 ML IV STA (07:15)
--- NOTE | 2020-05-14 07:25 | PN ---
Progress Note, Physician History of Present Illness: pulmonary alert,comfortable on nasal o2,-resp distress - Current Medication List Current Medications: Active Medications Apixaban (Eliquis -) 2.5 mg PO BID [facility] Last Admin: 05/13/20 21:04 Dose: 2.5 mg Documented by: Collagenase (Santyl -) 1 applic TP DAILY [facility]; Protocol Last Admin: 05/13/20 10:59 Dose: 1 applic Documented by: Furosemide (Lasix -) 40 mg PO DAILY [facility] Last Admin: 05/13/20 10:58 Dose: 40 mg Documented by: Sodium Chloride (Normal Saline -) 250 mls @ 250 mls/hr IV ASDIR STA Stop: 05/14/20 08:14 Metoprolol Tartrate (Lopressor -) 25 mg PO BID [facility] Last Admin: 05/13/20 21:04 Dose: 25 mg Documented by: Metoprolol Tartrate (Lopressor Injection -) 5 mg IVPUSH Q4H PRN PRN Reason: FOR HR > 130 Last Admin: 05/04/20 21:46 Dose: 5 mg Documented by: Mirtazapine (Remeron -) 15 mg PO HS [facility] Last Admin: 05/13/20 21:04 Dose: 15 mg Documented by: Nystatin (Nystop Powder -) 1 applic TP BID [facility] Last Admin: 05/13/20 21:09 Dose: 1 applic Documented by: - Objective Vital Signs: Vital Signs Temperature 97.2 F L 05/14/20 05:46 Pulse Rate 98 H 05/14/20 05:46 Respiratory Rate 18 05/14/20 05:46 Blood Pressure 92/46 L 05/14/20 05:46 O2 Sat by Pulse Oximetry (%) 95 05/13/20 21:00 Constitutional: Yes: Well Nourished, Calm Eyes: Yes: WNL HENT: Yes: WNL Neck: Yes: WNL Cardiovascular: Yes: Pulse Irregular, S1, S2 Respiratory: Yes: Diminished Gastrointestinal: Yes: Normal Bowel Sounds, Soft Extremities: Yes: WNL Edema: Yes Labs: CBC, BMP 05/11/20 11:10 05/11/20 11:10 INR, PTT INR 2.11 (0.83-1.09) H 05/03/20 11:09 Problem List - Problems (1) Atelectasis Code(s): J98.11 - ATELECTASIS (2) Bacteremia Code(s): R78.81 - BACTEREMIA (3) Pleural effusion Code(s): J90 - PLEURAL EFFUSION, NOT ELSEWHERE CLASSIFIED (4) Afib Code(s): I48.91 - UNSPECIFIED ATRIAL FIBRILLATION (5) CKD (chronic kidney disease) Code(s): N18.9 - CHRONIC KIDNEY DISEASE, UNSPECIFIED (6) GERD (gastroesophageal reflux disease) Code(s): K21.9 - GASTRO-ESOPHAGEAL REFLUX DISEASE WITHOUT ESOPHAGITIS (7) Acute on chronic diastolic (congestive) heart failure Code(s): I50.33 - ACUTE ON CHRONIC DIASTOLIC (CONGESTIVE) HEART FAILURE Assessment/Plan A/P Acute on Chronic Diastolic Heart Failure Volume Overload improving MRSA Bacteremia UTI Atrial Fibrillation COPD Liver Cirrhosis Acute on ckd - lasix - monitor urine output, creatinine,lytes,cbc - continue antibiotics - BiPAP as needed - rate control - O2 to keep SpO2 >90% - Frandy DOTY
--- NOTE | 2020-05-14 08:34 | PN ---
Progress Note, Physician - Current Medication List Current Medications: Active Medications Apixaban (Eliquis -) 2.5 mg PO BID [facility] Last Admin: 05/13/20 21:04 Dose: 2.5 mg Documented by: Collagenase (Santyl -) 1 applic TP DAILY [facility]; Protocol Last Admin: 05/13/20 10:59 Dose: 1 applic Documented by: Furosemide (Lasix -) 40 mg PO DAILY [facility] Last Admin: 05/13/20 10:58 Dose: 40 mg Documented by: Metoprolol Tartrate (Lopressor -) 25 mg PO BID [facility] Last Admin: 05/13/20 21:04 Dose: 25 mg Documented by: Metoprolol Tartrate (Lopressor Injection -) 5 mg IVPUSH Q4H PRN PRN Reason: FOR HR > 130 Last Admin: 05/04/20 21:46 Dose: 5 mg Documented by: Mirtazapine (Remeron -) 15 mg PO HS [facility] Last Admin: 05/13/20 21:04 Dose: 15 mg Documented by: Nystatin (Nystop Powder -) 1 applic TP BID [facility] Last Admin: 05/13/20 21:09 Dose: 1 applic Documented by: - Objective Vital Signs: Vital Signs Temperature 97.2 F L 05/14/20 05:46 Pulse Rate 98 H 05/14/20 05:46 Respiratory Rate 18 05/14/20 05:46 Blood Pressure 92/46 L 05/14/20 05:46 O2 Sat by Pulse Oximetry (%) 95 05/13/20 21:00 Cardiovascular: Yes: S1, S2 Respiratory: Yes: Regular, CTA Bilaterally, On Venti-Mask Gastrointestinal: Yes: Normal Bowel Sounds, Soft Labs: CBC, BMP 05/11/20 11:10 05/11/20 11:10 INR, PTT INR 2.11 (0.83-1.09) H 05/03/20 11:09 Problem List - Problems (1) Hypernatremia Code(s): E87.0 - HYPEROSMOLALITY AND HYPERNATREMIA (2) Sepsis Code(s): A41.9 - SEPSIS, UNSPECIFIED ORGANISM Qualifiers: (3) Afib Code(s): I48.91 - UNSPECIFIED ATRIAL FIBRILLATION (4) CKD (chronic kidney disease) Code(s): N18.9 - CHRONIC KIDNEY DISEASE, UNSPECIFIED Assessment/Plan - Problems (1) Failure to thrive Assessment/Plan: -megastrol -Continue mirtazapine -Seen by Palliative care Problems reviewed: Yes Code(s): [id number] - (2) POLINA (acute kidney injury) Assessment/Plan: -Nephrology on board -daily AM labs Problems reviewed: Yes Code(s): N17.9 - ACUTE KIDNEY FAILURE, UNSPECIFIED (3) Afib Assessment/Plan: -chronic, rate controlled -Eliquis discontinued last admission due to possible GI bleed and drop in her H/H -Eliquis restarted upon admission this time -will monitor her H/H closely -Decrease Eliquis dosage to 2.5 mg po bid given pt's age and Elevated Cr. -No concern for PE at this time Problems reviewed: Yes Code(s): I48.91 - UNSPECIFIED ATRIAL FIBRILLATION (4) Anemia Assessment/Plan: -r/o GI bleed possible melena -dc eliquis -stat labs -ppi -chronic,2/2 to chronic blood loss Problems reviewed: Yes Code(s): D64.9 - ANEMIA, UNSPECIFIED Qualifiers: Chronic kidney disease stage: stage 3 (moderate) (5) Urinary retention Assessment/Plan: -Maintain hilliard catheter Problems reviewed: Yes Code(s): R33.9 - RETENTION OF URINE, UNSPECIFIED (6) Bacteremia Assessment/Plan: -Finished On IV meropenem -ID on board -Afebrile -Cultures: Microbiology 05/04/20 10:20 Blood - Peripheral Venous Blood Culture - Preliminary NO GROWTH OBTAINED AFTER 24 HOURS, INCUBATION TO CONTINUE FOR 4 DAYS. 05/04/20 10:38 Blood - Peripheral Venous Blood Culture - Preliminary NO GROWTH OBTAINED AFTER 24 HOURS, INCUBATION TO CONTINUE FOR 4 DAYS. 05/03/20 02:30 Groin - Left Gram Stain - Final 05/03/20 02:30 Groin - Left Wound Culture - Final Pseudomonas Aeruginosa Proteus Species Lactose Fermenting Neg Bacilli Presumptive Mrsa (Pbp2a Pos) Group D Strep Or Entero Coccus Group D Strep Or Entero Coccus#2 05/02/20 16:29 Blood - Peripheral Venous Blood Culture - Preliminary S Aureus Staphylococcus Coagulase Neg 05/02/20 16:17 Blood - Peripheral Venous Blood Culture - Preliminary Staphylococcus Coagulase Neg 05/02/20 16:45 Urine - Urine Hilliard Urine Culture - Final Group D Strep Or Entero Coccus Problems reviewed: Yes Code(s): R78.81 - BACTEREMIA COVID 19 PCR in preparation of discharge back to SNF
[2020-05-14 09:01] LABS: BASO % 1.3 % (0-2.0); HEMATOCRIT 23.8 % (32.4-45.2); HEMOGLOBIN 7.3 GM/dL (10.7-15.3); LYMPH % 15.3 % (8-40); MCH 27.9 pg (25.7-33.7); MCHC 30.7 g/dl (32.0-36.0); MEAN CELL VOLUME 91.1 fl (80-96); MEAN PLT VOLUME 8.6 fl (7.5-11.1); MONO % 7.2 % (3.8-10.2); NEUT % 75.2 % (42.8-82.8); PLATELET COUNT 368 K/MM3 (134-434); RBC 2.61 M/mm3 (3.60-5.2); RDW 20.6 % (11.6-15.6); WHITE BLOOD COUNT 6.1 K/mm3 (4.0-10.0)
[2020-05-14 09:29] LABS: ALBUMIN 1.5 g/dl (3.4-5.0); BILIRUBIN,TOTAL 0.6 mg/dL (0.2-1); BLOOD UREA NITROGEN 93.1 mg/dL (7-18); CREATININE 2.7 mg/dL (0.55-1.3); POTASSIUM 5.4 mmol/L (3.5-5.1); TOT PROT 4.9 g/dl (6.4-8.2)
--- NOTE | 2020-05-14 10:03 | PN ---
Progress Note (short form) - Note Progress Note: Ethics An Ethics consult is on the EMR since 05/07/2020. It clearly states that after review of the complete guardianship document by the hospital employment attorney that the medical decision makers for [place] are the children and not the [facility]. That health service has other responsibilities such as financial decisions. The attending staff therefore is advised by the hospital employment attorney NOT to have any 2 PC for DNR/DNI or other life sustaining treatment decisions. I have spoken to Dr. Haque about this fact and I will reach out to the CODING TEAM LEAD Rodrigo Paez.
[2020-05-14] MEDS: PANTOPRAZOLE SODIUM 40 MG VIAL IVPUSH SCH ×2 (10:06→21:07)
[2020-05-14] MEDS: FUROSEMIDE 40 MG TABLET (FP) PO SCH (11:01)
[2020-05-14] MEDS: METOPROLOL TARTRATE 25 MG TABLET (FP) PO SCH ×2 (11:01→21:07)
[2020-05-14] MEDS ORDERED: LACTATED RINGERS SOLUTION 1000 ML INFUS.BAG IV ONE (12:45)
[2020-05-14] MEDS: COLLAGENASE CLOSTRIDIUM HIST. 30 GRAMS TUBE TP SCH (14:02)
--- NOTE | 2020-05-14 14:12 | PN ---
Physical Exam: SUBJECTIVE: Patient seen and examined. Requested by Dr. Haque to evaluate pt for melena, vomiting, hypotension, chronic BiPAP. Per RN, pt had two large maroon-colored bowel movements overnight with 3 episodes of vomiting before being switched to NRB. She had another episode of non-bloody vomiting just prior to consult. Pt has chronic anemia but labs Hb was 7.3 this morning. Pt was also hypotensive to 90s/40s and was responsive to IV fluids (systolic 102). Pt denies difficulty breathing, chest pain, abdominal pain, or nausea. OBJECTIVE: Vital Signs Period Temp Pulse Resp BP Sys/Mcgarry Pulse Ox Last 24 Hr 97.2 F-98.2 F 96-113 18-22 87-108/45-80 92-97 GENERAL: The patient is awake, alert, and oriented to person and month. She is on NRB. Answers some questions. HEAD: Normal with no signs of trauma. EYES: PERRL, extraocular movements intact, conjunctiva clear. ENT: Ears normal, nares patent, moist mucous membranes. NECK: Trachea midline, full range of motion. LUNGS: Clear to auscultation bilaterally anteriorly, no wheezes, abdominal breathing. HEART: Regular rate and rhythm, no murmur appreciated. ABDOMEN: Soft, nontender, nondistended, hypoactive bowel sounds. EXTREMITIES: +1 dorsalis pedis pulse right foot, cool to touch, with +1 pitting edema below knee; +2 pitting edema left foot and +1 below knee, pulse not appreciated due to edema, cool to touch; +1 edema b/l hands, cool to touch; no cyanosis. NEUROLOGICAL: Cranial nerves II through XII grossly intact. PSYCH: Normal mood, normal affect. SKIN: Warm, dry, normal turgor. right arm ecchymosis/skin tear bandaged. Laboratory Results - last 24 hr 05/14/20 05/14/20 05/14/20 06:30 06:30 06:30 WBC 6.1 RBC 2.61 L Hgb 7.3 L Hct 23.8 L MCV 91.1 MCH 27.9 MCHC 30.7 L RDW 20.6 H Plt Count 368 D MPV 8.6 Absolute Neuts (auto) 4.6 Neutrophils % 75.2 Lymphocytes % 15.3 Monocytes % 7.2 Eosinophils % 1.0 D Basophils % 1.3 Nucleated RBC % 0 Sodium 148 H Potassium 5.4 H Chloride 108 H Carbon Dioxide 28 Anion Gap 12 BUN 93.1 H Creatinine 2.7 H Est GFR (CKD-EPI)AfAm 18.16 Est GFR (CKD-EPI)NonAf 15.67 Random Glucose 128 H Calcium 8.0 L Total Bilirubin 0.6 AST 45 H ALT 9 L Alkaline Phosphatase 222 H Total Protein 4.9 L Albumin 1.5 L Stool Occult Blood Positive Active Medications Generic Name Dose Route Start Last Admin Trade Name Freq PRN Reason Stop Dose Admin Collagenase 1 applic 05/03/20 10:00 05/13/20 10:59 Santyl - TP 1 applic DAILY [facility] Administration Protocol Furosemide 40 mg 05/06/20 12:15 05/14/20 11:01 Lasix - PO Not Given DAILY [facility] Metoprolol Tartrate 25 mg 05/04/20 10:00 05/14/20 11:01 Lopressor - PO Not Given BID [facility] Metoprolol Tartrate 5 mg 05/03/20 17:55 05/04/20 21:46 Lopressor Injection - IVPUSH 5 mg Q4H PRN Administration FOR HR > 130 Mirtazapine 15 mg 05/02/20 22:00 05/13/20 21:04 Remeron - PO 15 mg HS [facility] Administration Nystatin 1 applic 05/02/20 22:45 05/13/20 21:09 Nystop Powder - TP 1 applic BID [facility] Administration Pantoprazole Sodium 40 mg 05/14/20 10:00 05/14/20 10:06 Protonix Iv IVPUSH 40 mg BID [facility] Administration ASSESSMENT/PLAN: Pt is an 84 y/o female from [facility] with afib (off Eliquis since last admission), recent tx for urosepsis (d/c 04/29 s/p aztreonam tx), COPD, dementia, possible liver cirrhosis, left breast cancer s/p mastectomy and lymph node resection, and anxiety who presents with worsening shortness of breath. Overnight, pt had large bloody BMs x2 and vomiting x4. She was changed from BiPAP to NRB and appeared in distress. #neuro -alert #pulm -switched from NRB to HFOT, satting well -continue to monitor #cardio -Lasix held -lopressor 25mg BID for a-fib -Eliquis held in light of GI bleeding -EKG for hyperkalemia -intermittent sinus tachycardia #renal -Cr 2.3-->2.7 -K 5.4 -Na 148 -net negative output the last several days, probably dry -Lasix held today -IV LR bolus 1L -assess daily fluid status and need for Lasix -repeat BMP later today #ID -MRSA bacteremia 05/02, repeat blood cx negative 05/04 -s/p vancomycin and meropenem #GI -IV protonix BID -monitor for signs of bleeding #heme/onc -Hb 7.3, has been anemic in the past but lower than usual -repeat lab later today -type and screen done #integumentary -sacral ulcer -continue wound care #psych -continue mirtazapine DVT Ppx Eliquis held GI Ppx Protonix FEN LR bolus monitor K, Cr, Na NPO dispo: monitor in ICU Pt's son, John, is point of contact . He with 2 other siblings are medical decision makers per hospital legal dept, not the legal guardian. FULL CODE Visit type - Emergency Visit Emergency Visit: Yes ED Registration Date: 05/02/20 Care time: The patient presented to the Emergency Department on the above date and was hospitalized for further evaluation of their emergent condition. - New Patient This patient is new to me today: Yes Date on this admission: 05/14/20 - Critical Care Critical Care patient: Yes Total Critical Care Time (in minutes): 35 Critical Care Statement: The care of this patient involved high complexity decision making to prevent further life threatening deterioration of the patient's condition and/or to evaluate & treat vital organ system(s) failure or risk of failure. ATTENDING PHYSICIAN STATEMENT I saw and evaluated the patient. I reviewed the resident's note and discussed the case with the resident. I agree with the resident's findings and plan as documented. SUBJECTIVE: OBJECTIVE: ASSESSMENT AND PLAN:
--- NOTE | 2020-05-14 15:27 | EKG ---
Test Reason : Blood Pressure : / mmHG Vent. Rate : 117 BPM Atrial Rate : 117 BPM P-R Int : 142 ms QRS Dur : 070 ms QT Int : 350 ms P-R-T Axes : 055 -64 033 degrees QTc Int : 488 ms POOR DATA QUALITY, INTERPRETATION MAY BE ADVERSELY AFFECTED SINUS TACHYCARDIA WITH OCCASIONAL PREMATURE VENTRICULAR COMPLEXES LOW VOLTAGE QRS LEFT ANTERIOR FASCICULAR BLOCK CANNOT RULE OUT ANTERIOR INFARCT (CITED ON OR BEFORE 17-APR-2020) ABNORMAL ECG WHEN COMPARED WITH ECG OF 02-MAY-2020 17:25, NO SIGNIFICANT CHANGE WAS FOUND Confirmed by ERIC ROMAN MD ([id number]) on 05/14/2020 3:27:34 PM Referred By: Confirmed By:ERIC ROMAN MD
--- NOTE | 2020-05-14 18:36 | PN ---
Progress Note, Physician History of Present Illness: Pt seen and examined at bedside. She is now in the ICU. No great change in mental status. She denies shortness of breath. - Current Medication List Current Medications: Active Medications Collagenase (Santyl -) 1 applic TP DAILY [facility]; Protocol Last Admin: 05/14/20 14:02 Dose: 1 applic Documented by: Furosemide (Lasix -) 40 mg PO DAILY [facility] Last Admin: 05/14/20 11:01 Dose: Not Given Documented by: Metoprolol Tartrate (Lopressor -) 25 mg PO BID [facility] Last Admin: 05/14/20 11:01 Dose: Not Given Documented by: Metoprolol Tartrate (Lopressor Injection -) 5 mg IVPUSH Q4H PRN PRN Reason: FOR HR > 130 Last Admin: 05/04/20 21:46 Dose: 5 mg Documented by: Mirtazapine (Remeron -) 15 mg PO HS [facility] Last Admin: 05/13/20 21:04 Dose: 15 mg Documented by: Nystatin (Nystop Powder -) 1 applic TP BID [facility] Last Admin: 05/13/20 21:09 Dose: 1 applic Documented by: Pantoprazole Sodium (Protonix Iv) 40 mg IVPUSH BID [facility] Last Admin: 05/14/20 10:06 Dose: 40 mg Documented by: - Objective Vital Signs: Vital Signs Temperature 98 F 05/14/20 14:00 Pulse Rate 89 05/14/20 17:04 Respiratory Rate 22 H 05/14/20 16:00 Blood Pressure 108/68 05/14/20 16:00 O2 Sat by Pulse Oximetry (%) 97 05/14/20 17:04 Constitutional: Yes: Calm Eyes: Yes: Conjunctiva Clear HENT: Yes: Atraumatic Neck: Yes: Supple Cardiovascular: Yes: S1, S2 Respiratory: Yes: CTA Bilaterally Genitourinary: Yes: Incontinence Musculoskeletal: Yes: Muscle Weakness Edema: Yes Edema: LLE: Trace, RLE: Trace Neurological: Yes: Confusion Labs: CBC, BMP 05/14/20 06:30 05/14/20 06:30 INR, PTT INR 2.11 (0.83-1.09) H 05/03/20 11:09 Assessment/Plan Current Medications Generic Name Dose Route Start Last Admin Trade Name Freq PRN Reason Stop Dose Admin Collagenase 1 applic 05/03/20 10:00 05/14/20 14:02 Santyl - TP 1 applic DAILY [facility] Administration Protocol Furosemide 40 mg 05/06/20 12:15 05/14/20 11:01 Lasix - PO Not Given DAILY [facility] Metoprolol Tartrate 25 mg 05/04/20 10:00 05/14/20 11:01 Lopressor - PO Not Given BID [facility] Metoprolol Tartrate 5 mg 05/03/20 17:55 05/04/20 21:46 Lopressor Injection - IVPUSH 5 mg Q4H PRN Administration FOR HR > 130 Mirtazapine 15 mg 05/02/20 22:00 05/13/20 21:04 Remeron - PO 15 mg HS [facility] Administration Nystatin 1 applic 05/02/20 22:45 05/13/20 21:09 Nystop Powder - TP 1 applic BID [facility] Administration Pantoprazole Sodium 40 mg 05/14/20 10:00 05/14/20 10:06 Protonix Iv IVPUSH 40 mg BID [facility] Administration reviewed chart reviewed labs reviewed meds Impression 1. POLINA 2. hyponatremia 3. altered mental status 4. copd 5. a-fib 6. gerd 7. hypoglycemia 8. chf 9. fluid overload 10. sepsis 11. liver cirrhosis 12. a-fib 13. hypokalemia 14. failure to thrive Plan - hold lasix - fluid challenge - treat potassium medically - repeat labs in am - monitor pulse ox - discussed with ICU team - encourage po inake - pt is clinically doing poorly
[2020-05-14] MEDS ORDERED: SODIUM ZIRCONIUM CYCLOSILICATE (LOKELMA) 5 GM PACKET PO ONE (18:38)
[2020-05-14] MEDS: NYSTATIN POWDER 100,000 UNITS/GM - 15 GM TOPICAL POWDER TP SCH (21:06)
[2020-05-14] MEDS: MIRTAZAPINE 15 MG TABLET (FP) PO SCH (21:07)
[2020-05-14 21:13] LABS: BASO % 0.8 % (0-2.0); EOS % 0.1 % (0-4.5); HEMATOCRIT 23.3 % (32.4-45.2); HEMOGLOBIN 7.1 GM/dL (10.7-15.3); LYMPH % 14.1 % (8-40); MCH 27.7 pg (25.7-33.7); MCHC 30.5 g/dl (32.0-36.0); MEAN CELL VOLUME 90.9 fl (80-96); MEAN PLT VOLUME 8.3 fl (7.5-11.1); MONO % 7.6 % (3.8-10.2); NEUT % 77.4 % (42.8-82.8); PLATELET COUNT 369 K/MM3 (134-434); RBC 2.56 M/mm3 (3.60-5.2); RDW 20.5 % (11.6-15.6); WHITE BLOOD COUNT 7.4 K/mm3 (4.0-10.0)
[2020-05-14 21:34] LABS: BLOOD UREA NITROGEN 92.7 mg/dL (7-18); CALCIUM 7.7 mg/dL (8.5-10.1); CREATININE 3.1 mg/dL (0.55-1.3); POTASSIUM 5.2 mmol/L (3.5-5.1)
[2020-05-14] MEDS ORDERED: SODIUM CHLORIDE 0.45% 1,000 ML IV SCH (22:15)
--- NOTE | 2020-05-14 23:35 | PN ---
Progress Note, Physician History of Present Illness: LETHARGIC, CONFUSED TRANSFERRED TO ICU OFFERS NO COMPLAINTS WBC IMPROVED + AZOTEMIA BC POLYMIROBRIAL - Current Medication List Current Medications: Active Medications Collagenase (Santyl -) 1 applic TP DAILY [facility]; Protocol Last Admin: 05/14/20 14:02 Dose: 1 applic Documented by: Metoprolol Tartrate (Lopressor -) 25 mg PO BID [facility] Last Admin: 05/14/20 21:07 Dose: Not Given Documented by: Metoprolol Tartrate (Lopressor Injection -) 5 mg IVPUSH Q4H PRN PRN Reason: FOR HR > 130 Last Admin: 05/04/20 21:46 Dose: 5 mg Documented by: Mirtazapine (Remeron -) 15 mg PO HS [facility] Last Admin: 05/14/20 21:07 Dose: Not Given Documented by: Nystatin (Nystop Powder -) 1 applic TP BID [facility] Last Admin: 05/14/20 21:06 Dose: 1 applic Documented by: Pantoprazole Sodium (Protonix Iv) 40 mg IVPUSH BID [facility] Last Admin: 05/14/20 21:07 Dose: 40 mg Documented by: - Objective Vital Signs: Vital Signs Temperature 98.2 F 05/14/20 18:00 Pulse Rate 117 H 05/14/20 18:00 Respiratory Rate 18 05/14/20 18:00 Blood Pressure 97/71 05/14/20 18:00 O2 Sat by Pulse Oximetry (%) 96 05/14/20 21:44 Constitutional: Yes: Well Nourished Eyes: Yes: Conjunctiva Clear Cardiovascular: Yes: Regular Rate and Rhythm, S1, S2 Respiratory: Yes: CTA Bilaterally Edema: No Labs: CBC, BMP 05/14/20 20:31 05/14/20 20:31 INR, PTT INR 2.11 (0.83-1.09) H 05/03/20 11:09 Assessment/Plan + BC POLYMICROBIAL WOUND INFECTION LEUKOCYTOSIS CONTINUE VANCOMYIN/ZOSYN
[2020-05-15] MEDS ORDERED: SODIUM CHLORIDE 500 ML IV STA (02:02)
[2020-05-15] MEDS: METOPROLOL TARTRATE 25 MG TABLET (FP) PO SCH ×2 (09:28→21:54)
[2020-05-15] MEDS: PANTOPRAZOLE SODIUM 40 MG VIAL IVPUSH SCH ×2 (09:38→21:56)
[2020-05-15] MEDS: NYSTATIN POWDER 100,000 UNITS/GM - 15 GM TOPICAL POWDER TP SCH ×2 (09:53→21:56)
[2020-05-15] MEDS ORDERED: PT OWN MED DRAWER 7, Y5N ONE (12:00)
[2020-05-15 12:03] LABS: INR 1.79 (0.83-1.09); PROTHROMBIN TIME (PATIENT) 21.2 SEC (9.7-13.0)
[2020-05-15 12:05] LABS: ACTIVATED PTT 29.5 SECONDS (25.2-36.5)
[2020-05-15 12:08] LABS: BASO % 0.5 % (0-2.0); EOS % 0.6 % (0-4.5); HEMATOCRIT 20.4 % (32.4-45.2); LYMPH % 12.3 % (8-40); MCH 27.1 pg (25.7-33.7); MCHC 30.2 g/dl (32.0-36.0); MEAN CELL VOLUME 89.6 fl (80-96); MEAN PLT VOLUME 7.9 fl (7.5-11.1); MONO % 9.4 % (3.8-10.2); NEUT % 77.2 % (42.8-82.8); PLATELET COUNT 342 K/MM3 (134-434); RBC 2.28 M/mm3 (3.60-5.2); RDW 20.9 % (11.6-15.6); WHITE BLOOD COUNT 7.7 K/mm3 (4.0-10.0)
[2020-05-15 12:12] LABS: HEMOGLOBIN 6.2 GM/dL (10.7-15.3)
--- NOTE | 2020-05-15 12:12 | PN ---
Progress Note, Physician - Current Medication List Current Medications: Active Medications Collagenase (Santyl -) 1 applic TP DAILY [facility]; Protocol Last Admin: 05/14/20 14:02 Dose: 1 applic Documented by: Metoprolol Tartrate (Lopressor -) 25 mg PO BID [facility] Last Admin: 05/15/20 09:28 Dose: Not Given Documented by: Metoprolol Tartrate (Lopressor Injection -) 5 mg IVPUSH Q4H PRN PRN Reason: FOR HR > 130 Last Admin: 05/04/20 21:46 Dose: 5 mg Documented by: Mirtazapine (Remeron -) 15 mg PO HS [facility] Last Admin: 05/14/20 21:07 Dose: Not Given Documented by: Nystatin (Nystop Powder -) 1 applic TP BID [facility] Last Admin: 05/15/20 09:53 Dose: 1 applic Documented by: Pantoprazole Sodium (Protonix Iv) 40 mg IVPUSH BID [facility] Last Admin: 05/15/20 09:38 Dose: 40 mg Documented by: - Objective Vital Signs: Vital Signs Temperature 97.6 F 05/15/20 10:00 Pulse Rate 117 H 05/15/20 10:00 Respiratory Rate 14 05/15/20 10:00 Blood Pressure 94/56 L 05/15/20 10:00 O2 Sat by Pulse Oximetry (%) 100 05/15/20 09:00 Cardiovascular: Yes: S1, S2 Respiratory: Yes: On Nasal O2 (high flow) Gastrointestinal: Yes: Normal Bowel Sounds, Soft Labs: INR, PTT INR 1.79 (0.83-1.09) H 05/15/20 11:36 Problem List - Problems (1) Hypernatremia Code(s): E87.0 - HYPEROSMOLALITY AND HYPERNATREMIA (2) Sepsis Code(s): A41.9 - SEPSIS, UNSPECIFIED ORGANISM Qualifiers: (3) Afib Code(s): I48.91 - UNSPECIFIED ATRIAL FIBRILLATION (4) CKD (chronic kidney disease) Code(s): N18.9 - CHRONIC KIDNEY DISEASE, UNSPECIFIED Assessment/Plan - Problems (1) Failure to thrive Assessment/Plan: -megastrol -Continue mirtazapine -Seen by Palliative care Problems reviewed: Yes Code(s): QGW8643 - (2) POLINA (acute kidney injury) Assessment/Plan: -Nephrology on board -daily AM labs Problems reviewed: Yes Code(s): N17.9 - ACUTE KIDNEY FAILURE, UNSPECIFIED (3) Afib Assessment/Plan: -chronic, rate controlled -Eliquis discontinued last admission due to possible GI bleed and drop in her H/H -Eliquis restarted upon admission this time -will monitor her H/H closely -Decrease Eliquis dosage to 2.5 mg po bid given pt's age and Elevated Cr. -No concern for PE at this time Problems reviewed: Yes Code(s): I48.91 - UNSPECIFIED ATRIAL FIBRILLATION (4) Anemia Assessment/Plan: -r/o GI bleed possible melena -dc eliquis -stat labs -ppi -chronic,2/2 to chronic blood loss Problems reviewed: Yes Code(s): D64.9 - ANEMIA, UNSPECIFIED Qualifiers: Chronic kidney disease stage: stage 3 (moderate) (5) Hypotension Assessment/Plan: -r/o gi bleed -r/o sepsis -icu care -id follow up (6) Bacteremia Assessment/Plan: -Finished On IV meropenem -ID on board -Afebrile -Cultures: Microbiology 05/04/20 10:20 Blood - Peripheral Venous Blood Culture - Preliminary NO GROWTH OBTAINED AFTER 24 HOURS, INCUBATION TO CONTINUE FOR 4 DAYS. 05/04/20 10:38 Blood - Peripheral Venous Blood Culture - Preliminary NO GROWTH OBTAINED AFTER 24 HOURS, INCUBATION TO CONTINUE FOR 4 DAYS. 05/03/20 02:30 Groin - Left Gram Stain - Final 05/03/20 02:30 Groin - Left Wound Culture - Final Pseudomonas Aeruginosa Proteus Species Lactose Fermenting Neg Bacilli Presumptive Mrsa (Pbp2a Pos) Group D Strep Or Entero Coccus Group D Strep Or Entero Coccus#2 05/02/20 16:29 Blood - Peripheral Venous Blood Culture - Preliminary Mr S Aureus Staphylococcus Coagulase Neg 05/02/20 16:17 Blood - Peripheral Venous Blood Culture - Preliminary Staphylococcus Coagulase Neg 05/02/20 16:45 Urine - Urine Muro Urine Culture - Final Group D Strep Or Entero Coccus Problems reviewed: Yes Code(s): R78.81 - BACTEREMIA COVID 19 PCR in preparation of discharge back to [facility]
[2020-05-15 12:26] LABS: ALBUMIN 1.3 g/dl (3.4-5.0); BILIRUBIN,TOTAL 0.6 mg/dL (0.2-1); BLOOD UREA NITROGEN 100.3 mg/dL (7-18); CALCIUM 7.3 mg/dL (8.5-10.1); CREATININE 3.3 mg/dL (0.55-1.3); MAGNESIUM 1.7 mg/dL (1.8-2.4); PHOSPHOROUS 4.8 mg/dL (2.5-4.9); POTASSIUM 4.9 mmol/L (3.5-5.1); TOT PROT 4.3 g/dl (6.4-8.2)
--- NOTE | 2020-05-15 13:05 | PN ---
Teaching Attending Note Name of Resident: Mark Laws ATTENDING PHYSICIAN STATEMENT I saw and evaluated the patient. I reviewed the resident's note and discussed the case with the resident. I agree with the resident's findings and plan as documented. SUBJECTIVE: Patient seen and examined. Lethargic but arousable. Weak appearing. On HFOT. No pressors. Unclear of her GOC, ethics input noted. Intake & Output 05/12/20 05/13/20 05/14/20 05/15/20 23:59 23:59 23:59 23:59 Intake Total 310 815 310 500 Output Total 630 730 550 Balance -320 85 -240 500 Weight 176 lb 3 oz Last Vital Signs Temp Pulse Resp BP Pulse Ox 97.6 F 117 H 14 94/56 L 98 05/15/20 10:00 05/15/20 10:00 05/15/20 10:00 05/15/20 10:00 05/15/20 11:27 Active Medications Collagenase (Santyl -) 1 applic TP DAILY [facility]; Protocol Last Admin: 05/14/20 14:02 Dose: 1 applic Documented by: Metoprolol Tartrate (Lopressor -) 25 mg PO BID [facility] Last Admin: 05/15/20 09:28 Dose: Not Given Documented by: Metoprolol Tartrate (Lopressor Injection -) 5 mg IVPUSH Q4H PRN PRN Reason: FOR HR > 130 Last Admin: 05/04/20 21:46 Dose: 5 mg Documented by: Mirtazapine (Remeron -) 15 mg PO HS [facility] Last Admin: 05/14/20 21:07 Dose: Not Given Documented by: Nystatin (Nystop Powder -) 1 applic TP BID [facility] Last Admin: 05/15/20 09:53 Dose: 1 applic Documented by: Pantoprazole Sodium (Protonix Iv) 40 mg IVPUSH BID [facility] Last Admin: 05/15/20 09:38 Dose: 40 mg Documented by: GENERAL: Lethargic but arousable HEAD: Normal with no signs of trauma. EYES: conjunctiva clear. ENT: Ears normal, nares patent, dry mucous membranes. NECK: Trachea midline, full range of motion. LUNGS: HFOT, scattered bilateral rhonchi HEART: Regular rate and rhythm, no murmur appreciated. ABDOMEN: Soft, nontender, nondistended, hypoactive bowel sounds. EXTREMITIES: +1 dorsalis pedis pulse right foot, cool to touch, with +1 pitting edema below knee; +2 pitting edema left foot and +1 below knee, pulse not appreciated due to edema, cool to touch; +1 edema b/l hands, cool to touch; no cyanosis. NEUROLOGICAL: Lethargic, non-focal PSYCH: Normal mood, normal affect. SKIN: Warm, dry, normal turgor. right arm ecchymosis/skin tear bandaged. Laboratory Results - last 24 hr 05/14/20 05/14/20 05/14/20 06:30 06:30 06:30 WBC 6.1 RBC 2.61 L Hgb 7.3 L Hct 23.8 L MCV 91.1 MCH 27.9 MCHC 30.7 L RDW 20.6 H Plt Count 368 D MPV 8.6 Absolute Neuts (auto) 4.6 Neutrophils % 75.2 Lymphocytes % 15.3 Monocytes % 7.2 Eosinophils % 1.0 D Basophils % 1.3 Nucleated RBC % 0 Sodium 148 H Potassium 5.4 H Chloride 108 H Carbon Dioxide 28 Anion Gap 12 BUN 93.1 H Creatinine 2.7 H Est GFR (CKD-EPI)AfAm 18.16 Est GFR (CKD-EPI)NonAf 15.67 Random Glucose 128 H Calcium 8.0 L Total Bilirubin 0.6 AST 45 H ALT 9 L Alkaline Phosphatase 222 H Total Protein 4.9 L Albumin 1.5 L Stool Occult Blood Positive Active Medications Generic Name Dose Route Start Last Admin Trade Name Freq PRN Reason Stop Dose Admin Collagenase 1 applic 05/03/20 10:00 05/13/20 10:59 Santyl - TP 1 applic DAILY [facility] Administration Protocol Furosemide 40 mg 05/06/20 12:15 05/14/20 11:01 Lasix - PO Not Given DAILY [facility] Metoprolol Tartrate 25 mg 05/04/20 10:00 05/14/20 11:01 Lopressor - PO Not Given BID [facility] Metoprolol Tartrate 5 mg 05/03/20 17:55 05/04/20 21:46 Lopressor Injection - IVPUSH 5 mg Q4H PRN Administration FOR HR > 130 Mirtazapine 15 mg 05/02/20 22:00 05/13/20 21:04 Remeron - PO 15 mg HS [facility] Administration Nystatin 1 applic 05/02/20 22:45 05/13/20 21:09 Nystop Powder - TP 1 applic BID [facility] Administration Pantoprazole Sodium 40 mg 05/14/20 10:00 05/14/20 10:06 Protonix Iv IVPUSH 40 mg BID [facility] Administration ASSESSMENT/PLAN: R/O Sepsis AFib Recent urosepsis (d/c 04/29 s/p aztreonam tx) COPD Dementia (?) liver cirrhosis Left breast cancer S/P mastectomy and lymph node resection Anxiety HFOT Strict I & O Need to clarify GOC Aspiration precautions Not on ABX per ID currently 4S/ 4 W monitoring Overall outcome appears very poor : continue GOC discussions Dr Carver Problem List - Problems (1) Atelectasis Code(s): J98.11 - ATELECTASIS (2) Pleural effusion Code(s): J90 - PLEURAL EFFUSION, NOT ELSEWHERE CLASSIFIED (3) Afib Code(s): I48.91 - UNSPECIFIED ATRIAL FIBRILLATION (4) Anemia Code(s): D64.9 - ANEMIA, UNSPECIFIED Qualifiers: Chronic kidney disease stage: stage 3 (moderate) (5) CHF exacerbation Code(s): I50.9 - HEART FAILURE, UNSPECIFIED (6) CKD (chronic kidney disease) Code(s): N18.9 - CHRONIC KIDNEY DISEASE, UNSPECIFIED (7) Dementia Code(s): F03.90 - UNSPECIFIED DEMENTIA WITHOUT BEHAVIORAL DISTURBANCE (8) GERD (gastroesophageal reflux disease) Code(s): K21.9 - GASTRO-ESOPHAGEAL REFLUX DISEASE WITHOUT ESOPHAGITIS
[2020-05-15] MEDS: COLLAGENASE CLOSTRIDIUM HIST. 30 GRAMS TUBE TP SCH (13:35)
[2020-05-15] MEDS ORDERED: VANCOMYCIN 1 GRAM (PRE-DOCKED) 1,000 MG/250 ML BAG IVPB ONE (14:00)
[2020-05-15 14:03] LABS: ANISOCYTOSIS 1+; MACROCYTOSIS 0; PLATELET ESTIMATE NORMAL
--- NOTE | 2020-05-15 14:29 | PN ---
Progress Note, Physician History of Present Illness: Pt seen and examined at bedside. She is awake but confused. Her po intake remains poor. - Current Medication List Current Medications: Active Medications Collagenase (Santyl -) 1 applic TP DAILY [facility]; Protocol Last Admin: 05/15/20 13:35 Dose: 1 applic Documented by: Vancomycin HCl (Vancomycin (Pre-Docked)) 1,000 mg in 250 mls @ 166.667 mls/hr IVPB ONCE ONE; Protocol Stop: 05/15/20 15:29 Last Admin: 05/15/20 14:19 Dose: 166.667 mls/hr Documented by: Metoprolol Tartrate (Lopressor -) 25 mg PO BID [facility] Last Admin: 05/15/20 09:28 Dose: Not Given Documented by: Metoprolol Tartrate (Lopressor Injection -) 5 mg IVPUSH Q4H PRN PRN Reason: FOR HR > 130 Last Admin: 05/04/20 21:46 Dose: 5 mg Documented by: Mirtazapine (Remeron -) 15 mg PO HS [facility] Last Admin: 05/14/20 21:07 Dose: Not Given Documented by: Nystatin (Nystop Powder -) 1 applic TP BID [facility] Last Admin: 05/15/20 09:53 Dose: 1 applic Documented by: Pantoprazole Sodium (Protonix Iv) 40 mg IVPUSH BID [facility] Last Admin: 05/15/20 09:38 Dose: 40 mg Documented by: - Objective Vital Signs: Vital Signs Temperature 97.6 F 05/15/20 10:00 Pulse Rate 117 H 05/15/20 10:00 Respiratory Rate 14 05/15/20 10:00 Blood Pressure 94/56 L 05/15/20 10:00 O2 Sat by Pulse Oximetry (%) 98 05/15/20 11:27 Constitutional: Yes: Calm Eyes: Yes: Conjunctiva Clear HENT: Yes: Atraumatic Cardiovascular: Yes: S1, S2 Respiratory: Yes: On Nasal O2 Gastrointestinal: Yes: Soft Genitourinary: Yes: Incontinence Musculoskeletal: Yes: Muscle Weakness Edema: Yes Edema: LLE: 1+, RLE: 1+ Neurological: Yes: Confusion Psychiatric: Yes: Oriented Labs: CBC, BMP 05/15/20 11:36 05/15/20 11:36 INR, PTT INR 1.79 (0.83-1.09) H 05/15/20 11:36 Assessment/Plan Current Medications Generic Name Dose Route Start Last Admin Trade Name Freq PRN Reason Stop Dose Admin Collagenase 1 applic 05/03/20 10:00 05/15/20 13:35 Santyl - TP 1 applic DAILY [facility] Administration Protocol Vancomycin HCl 1,000 mg in 250 mls @ 166.667 mls/hr 05/15/20 14:00 05/15/20 14:19 Vancomycin (Pre-Docked) IVPB 05/15/20 15:29 166.667 mls/hr ONCE ONE Administration Protocol Metoprolol Tartrate 25 mg 05/04/20 10:00 05/15/20 09:28 Lopressor - PO Not Given BID [facility] Metoprolol Tartrate 5 mg 05/03/20 17:55 05/04/20 21:46 Lopressor Injection - IVPUSH 5 mg Q4H PRN Administration FOR HR > 130 Mirtazapine 15 mg 05/02/20 22:00 05/14/20 21:07 Remeron - PO Not Given HS [facility] Nystatin 1 applic 05/02/20 22:45 05/15/20 09:53 Nystop Powder - TP 1 applic BID [facility] Administration Pantoprazole Sodium 40 mg 05/14/20 10:00 05/15/20 09:38 Protonix Iv IVPUSH 40 mg BID [facility] Administration Impression 1. POLINA 2. hyponatremia 3. altered mental status 4. copd 5. a-fib 6. gerd 7. hypoglycemia 8. chf 9. fluid overload 10. sepsis 11. liver cirrhosis 12. a-fib 13. hypokalemia 14. failure to thrive Plan - will start clinimix as po intake is poor - repeat labs in am - renal function worsening - potassium normalized - monitor pulse ox - discussed with ICU team - encourage po inake - pt is clinically doing poorly
[2020-05-15] MEDS ORDERED: AMINO ACIDS 4.25%/D5W 1,000 ML IV SCH ×2 (14:30→14:45)
[2020-05-15] MEDS: MIRTAZAPINE 15 MG TABLET (FP) PO SCH ×2 (21:56→22:01)
--- NOTE | 2020-05-15 22:21 | PN ---
Progress Note, Physician History of Present Illness: LETHARGIC, CONFUSED TRANSFERRED TO ICU OFFERS NO COMPLAINTS WBC IMPROVED + AZOTEMIA BC POLYMIROBRIAL - Current Medication List Current Medications: Active Medications Collagenase (Santyl -) 1 applic TP DAILY [facility]; Protocol Last Admin: 05/15/20 13:35 Dose: 1 applic Documented by: Amino Acids (Clinimix -) 1,000 mls @ 42 mls/hr IV Q24H [facility] Last Admin: 05/15/20 18:01 Dose: 42 mls/hr Documented by: Metoprolol Tartrate (Lopressor -) 25 mg PO BID [facility] Last Admin: 05/15/20 21:54 Dose: Not Given Documented by: Metoprolol Tartrate (Lopressor Injection -) 5 mg IVPUSH Q4H PRN PRN Reason: FOR HR > 130 Last Admin: 05/04/20 21:46 Dose: 5 mg Documented by: Mirtazapine (Remeron -) 15 mg PO HS [facility] Last Admin: 05/15/20 22:01 Dose: Not Given Documented by: Nystatin (Nystop Powder -) 1 applic TP BID [facility] Last Admin: 05/15/20 21:56 Dose: 1 applic Documented by: Pantoprazole Sodium (Protonix Iv) 40 mg IVPUSH BID [facility] Last Admin: 05/15/20 21:56 Dose: 40 mg Documented by: - Objective Vital Signs: Vital Signs Temperature 98.7 F 05/15/20 18:50 Pulse Rate 110 H 05/15/20 20:30 Respiratory Rate 17 05/15/20 18:50 Blood Pressure 118/66 05/15/20 18:50 O2 Sat by Pulse Oximetry (%) 100 05/15/20 20:30 Labs: CBC, BMP 05/15/20 11:36 05/15/20 11:36 INR, PTT INR 1.79 (0.83-1.09) H 05/15/20 11:36
--- NOTE | 2020-05-16 02:42 | PN ---
Physical Exam: Overnight Events: Tolerated high flow nasal cannula. RN reports no further emesis but again noticed small amounts of blood in stool. OBJECTIVE: Supplemental Oxygen: High flow nasal cannula Physical Exams: GENERAL: The patient is awake, alert, and oriented to person. HEAD: Normal with no signs of trauma. NECK: Trachea midline, supple LUNGS: High flow nasal cannula in place. Breath sounds equal, clear to auscultation bilaterally, no respiratory distress. HEART: Borderline tachycardia with irregularly irregular rate and rhythm. ABDOMEN: Soft, nontender, nondistended. EXTREMITIES: Warm, well-perfused NEUROLOGICAL: Moving all four extremities spontaneously. PSYCH: Normal mood, normal affect. SKIN: Warm and dry ASSESSMENT / PLAN: Pt is an 84 y/o female from [facility] with afib (off Eliquis since last admission), recent tx for urosepsis (d/c 04/29 s/p aztreonam tx), COPD, dementia, possible liver cirrhosis, left breast cancer s/p mastectomy and lymph node resection, and anxiety who presents with worsening shortness of breath. Overnight, pt had large bloody BMs x2 and vomiting x4. She was changed from BiPAP to NRB and appeared in distress. #neuro -alert, disoriented consistent with dementia history #pulm -switched from NRB to HFOT, satting well -continue to monitor #cardio -Lasix held - A-fib rate controlled with PO Lopressor - Eliquis held in light of GI bleeding #renal - Cr worsening without hyperkalemia - Will receive volume with PRBCs - Nephrology following #GI -IV protonix BID -monitor for signs of increased bleeding. Low suspicion for significant hemorrhage with H/H trend. #Heme - H/H downtrended again. Called and discussed need to blood with pts son. Consented for transfusion. #integumentary -sacral ulcer -continue wound care #psych -continue mirtazapine FEN: - NPO for vomiting, but will advance in the morning to clear liquids as symptoms seem to have resolved Prophylaxis: - GI: Protonix Code Status / Family Conversation: - Full Code - Discussed current clinical state with son John. Scheduled family meeting for Monday (05/18) at noon. Dispo: Pt can be discharged to 4S/4W. Poor [facility] prognosis. Mark Laws M.D., PGY3 ICU Service 15 May 2020 Visit type - Emergency Visit Emergency Visit: Yes ED Registration Date: 05/02/20 Care time: The patient presented to the Emergency Department on the above date and was hospitalized for further evaluation of their emergent condition. - New Patient This patient is new to me today: Yes Date on this admission: 05/16/20 - Critical Care Critical Care patient: Yes Total Critical Care Time (in minutes): 30 Critical Care Statement: The care of this patient involved high complexity decision making to prevent further life threatening deterioration of the patient's condition and/or to evaluate & treat vital organ system(s) failure or risk of failure.
[2020-05-16] MEDS ORDERED: LACTATED RINGERS SOLUTION 1000 ML INFUS.BAG IV ONE (05:28)
[2020-05-16 07:32] LABS: BASO % 0.5 % (0-2.0); EOS % 2.3 % (0-4.5); HEMATOCRIT 25.5 % (32.4-45.2); HEMOGLOBIN 8.3 GM/dL (10.7-15.3); LYMPH % 12.1 % (8-40); MCH 28.6 pg (25.7-33.7); MCHC 32.3 g/dl (32.0-36.0); MEAN CELL VOLUME 88.5 fl (80-96); MEAN PLT VOLUME 7.8 fl (7.5-11.1); NEUT % 75.1 % (42.8-82.8); PLATELET COUNT 298 K/MM3 (134-434); RBC 2.89 M/mm3 (3.60-5.2); RDW 16.8 % (11.6-15.6); WHITE BLOOD COUNT 7.2 K/mm3 (4.0-10.0)
[2020-05-16 08:01] LABS: ALBUMIN 1.2 g/dl (3.4-5.0); BILIRUBIN,TOTAL 0.6 mg/dL (0.2-1); BLOOD UREA NITROGEN 97.8 mg/dL (7-18); CREATININE 3.2 mg/dL (0.55-1.3); MAGNESIUM 1.6 mg/dL (1.8-2.4); PHOSPHOROUS 4.2 mg/dL (2.5-4.9); POTASSIUM 4.6 mmol/L (3.5-5.1); TOT PROT 3.8 g/dl (6.4-8.2)
[2020-05-16] MEDS ORDERED: MAGNESIUM SULF 50% (8.12 MEQ/2 ML-1 GM VIAL) IVPB ONE (08:31)
--- NOTE | 2020-05-16 09:09 | PN ---
Progress Note (short form) - Note Progress Note: RENAL pt is awake and alert appears chronically ill no specific complaints Last Vital Signs Temp Pulse Resp BP Pulse Ox 98 F 112 H 18 97/59 L 100 05/16/20 06:00 05/16/20 06:00 05/16/20 06:00 05/16/20 06:00 05/16/20 04:30 lungs bilat air entry cvs s1s2 rr abd soft ext +edema, some ecchymosis neuro alert CBC, BMP 05/16/20 06:15 05/16/20 06:15 Current Medications Generic Name Dose Route Start Last Admin Trade Name Freq PRN Reason Stop Dose Admin Collagenase 1 applic 05/03/20 10:00 05/15/20 13:35 Santyl - TP 1 applic DAILY [facility] Administration Protocol Amino Acids 1,000 mls @ 42 mls/hr 05/15/20 14:45 05/15/20 18:01 Clinimix - IV 42 mls/hr Q24H [facility] Administration Metoprolol Tartrate 25 mg 05/04/20 10:00 05/15/20 21:54 Lopressor - PO Not Given BID [facility] Metoprolol Tartrate 5 mg 05/03/20 17:55 05/04/20 21:46 Lopressor Injection - IVPUSH 5 mg Q4H PRN Administration FOR HR > 130 Mirtazapine 15 mg 05/02/20 22:00 05/15/20 22:01 Remeron - PO Not Given HS [facility] Nystatin 1 applic 05/02/20 22:45 05/15/20 21:56 Nystop Powder - TP 1 applic BID [facility] Administration Pantoprazole Sodium 40 mg 05/14/20 10:00 05/15/20 21:56 Protonix Iv IVPUSH 40 mg BID [facility] Administration Impression 1. POLINA 2. hypernatremia 3. altered mental status- seems better 4. copd 5. a-fib 6. gerd 7. hypoglycemia 8. chf 9. fluid overload 10. sepsis 11. liver cirrhosis 12. a-fib 13. hypokalemia resolved 14. failure to thrive- with severe hypoalbuminemia Plan -continue clinimix -monitor renal function -obtain renal sono - reduce and/or stop nexium since it can cause polina MV
[2020-05-16] MEDS: NYSTATIN POWDER 100,000 UNITS/GM - 15 GM TOPICAL POWDER TP SCH ×3 (10:00→22:54)
[2020-05-16] MEDS: METOPROLOL TARTRATE 25 MG TABLET (FP) PO SCH ×2 (10:14→21:59)
[2020-05-16] MEDS: PANTOPRAZOLE SODIUM 40 MG VIAL IVPUSH SCH ×2 (10:19→21:59)
[2020-05-16] MEDS: COLLAGENASE CLOSTRIDIUM HIST. 30 GRAMS TUBE TP SCH (10:21)
[2020-05-16 11:50] LABS: ANISOCYTOSIS 1+; MACROCYTOSIS 0; OVALOCYTE 1+; PLATELET ESTIMATE NORMAL; TARGET CELLS 1+; TEAR DROP CELLS 1+; TOXIC GRANULATION 1+
--- NOTE | 2020-05-16 12:16 | PN ---
Teaching Attending Note Name of Resident: Maria Fernanda Chamorro ATTENDING PHYSICIAN STATEMENT I saw and evaluated the patient. I reviewed the resident's note and discussed the case with the resident. I agree with the resident's findings and plan as documented. SUBJECTIVE: Pt seen and examined in the ICU. Now on HFOT 50L, 50% FiO2. Awake, alert, no specific complaints. OBJECTIVE: Vital Signs Period Temp Pulse Resp BP Sys/Mcgarry Pulse Ox Last 24 Hr 98 F-98.9 F 104-121 13-22 84-118/47-70 90-100 Intake & Output 05/13/20 05/14/20 05/15/20 05/16/20 23:59 23:59 23:59 23:59 Intake Total 835 231 1924 652 Output Total 730 550 50 25 Balance 85 -240 1130 627 Weight 79.917 kg 80.513 kg Gen: mildly tachypneic on HFOT Heart: RRR Lung: decreased breath sounds at the bases Abd: soft, nontender Ext: + edema CBC, BMP 05/16/20 06:15 05/16/20 06:15 Active Medications Collagenase (Santyl -) 1 applic TP DAILY [facility]; Protocol Last Admin: 05/16/20 10:21 Dose: 1 applic Documented by: Amino Acids (Clinimix -) 1,000 mls @ 42 mls/hr IV Q24H [facility] Last Admin: 05/15/20 18:01 Dose: 42 mls/hr Documented by: Metoprolol Tartrate (Lopressor -) 25 mg PO BID [facility] Last Admin: 05/16/20 10:14 Dose: Not Given Documented by: Metoprolol Tartrate (Lopressor Injection -) 5 mg IVPUSH Q4H PRN PRN Reason: FOR HR > 130 Last Admin: 05/04/20 21:46 Dose: 5 mg Documented by: Mirtazapine (Remeron -) 15 mg PO HS [facility] Last Admin: 05/15/20 22:01 Dose: Not Given Documented by: Nystatin (Nystop Powder -) 1 applic TP BID [facility] Last Admin: 05/16/20 10:18 Dose: 1 applic Documented by: Pantoprazole Sodium (Protonix Iv) 40 mg IVPUSH BID [facility] Last Admin: 05/16/20 10:19 Dose: 40 mg Documented by: ASSESSMENT AND PLAN: Acute Hypoxic Respiratory Failure Volume Overload MRSA Bacteremia UTI Atrial Fibrillation COPD Liver Cirrhosis Acute on Chronic Renal Failure - lasix as needed - monitor urine output, creatinine - continue antibiotics - rate control - titrate HFOT to keep SpO2 >90% - rate control - continue anticoagualtion - can monitor on telemetry
--- NOTE | 2020-05-16 12:45 | PN ---
Progress Note, Physician - Current Medication List Current Medications: Active Medications Collagenase (Santyl -) 1 applic TP DAILY [facility]; Protocol Last Admin: 05/16/20 10:21 Dose: 1 applic Documented by: Amino Acids (Clinimix -) 1,000 mls @ 42 mls/hr IV Q24H [facility] Last Admin: 05/15/20 18:01 Dose: 42 mls/hr Documented by: Metoprolol Tartrate (Lopressor -) 25 mg PO BID [facility] Last Admin: 05/16/20 10:14 Dose: Not Given Documented by: Metoprolol Tartrate (Lopressor Injection -) 5 mg IVPUSH Q4H PRN PRN Reason: FOR HR > 130 Last Admin: 05/04/20 21:46 Dose: 5 mg Documented by: Mirtazapine (Remeron -) 15 mg PO HS [facility] Last Admin: 05/15/20 22:01 Dose: Not Given Documented by: Nystatin (Nystop Powder -) 1 applic TP BID [facility] Last Admin: 05/16/20 10:18 Dose: 1 applic Documented by: Pantoprazole Sodium (Protonix Iv) 40 mg IVPUSH BID [facility] Last Admin: 05/16/20 10:19 Dose: 40 mg Documented by: - Objective Vital Signs: Vital Signs Temperature 98.6 F 05/16/20 08:47 Pulse Rate 102 H 05/16/20 12:00 Respiratory Rate 13 05/16/20 12:00 Blood Pressure 105/66 05/16/20 12:00 O2 Sat by Pulse Oximetry (%) 100 05/16/20 08:47 Cardiovascular: Yes: S1, S2 Respiratory: Yes: Regular, CTA Bilaterally Gastrointestinal: Yes: Normal Bowel Sounds, Soft Labs: CBC, BMP 05/16/20 06:15 05/16/20 06:15 INR, PTT INR 1.79 (0.83-1.09) H 05/15/20 11:36 Problem List - Problems (1) Hypernatremia Code(s): E87.0 - HYPEROSMOLALITY AND HYPERNATREMIA (2) Sepsis Code(s): A41.9 - SEPSIS, UNSPECIFIED ORGANISM Qualifiers: (3) Afib Code(s): I48.91 - UNSPECIFIED ATRIAL FIBRILLATION (4) CKD (chronic kidney disease) Code(s): N18.9 - CHRONIC KIDNEY DISEASE, UNSPECIFIED Assessment/Plan - Problems (1) Failure to thrive Assessment/Plan: -megastrol -Continue mirtazapine -Seen by Palliative care Problems reviewed: Yes Code(s): TLJ0388 - (2) POLINA (acute kidney injury) Assessment/Plan: -Nephrology on board -daily AM labs Problems reviewed: Yes Code(s): N17.9 - ACUTE KIDNEY FAILURE, UNSPECIFIED (3) Afib Assessment/Plan: -chronic, rate controlled -Eliquis discontinued last admission due to possible GI bleed and drop in her H/H -Eliquis restarted upon admission this time -will monitor her H/H closely -Decrease Eliquis dosage to 2.5 mg po bid given pt's age and Elevated Cr. -No concern for PE at this time Problems reviewed: Yes Code(s): I48.91 - UNSPECIFIED ATRIAL FIBRILLATION (4) Anemia Assessment/Plan: -r/o GI bleed possible melena -dc eliquis -stat labs -ppi -chronic,2/2 to chronic blood loss Problems reviewed: Yes Code(s): D64.9 - ANEMIA, UNSPECIFIED Qualifiers: Chronic kidney disease stage: stage 3 (moderate) (5) Hypotension Assessment/Plan: -r/o gi bleed -r/o sepsis -icu care -id follow up (6) Bacteremia Assessment/Plan: -Finished On IV meropenem -ID on board -Afebrile -Cultures: Microbiology 05/04/20 10:20 Blood - Peripheral Venous Blood Culture - Preliminary NO GROWTH OBTAINED AFTER 24 HOURS, INCUBATION TO CONTINUE FOR 4 DAYS. 05/04/20 10:38 Blood - Peripheral Venous Blood Culture - Preliminary NO GROWTH OBTAINED AFTER 24 HOURS, INCUBATION TO CONTINUE FOR 4 DAYS. 05/03/20 02:30 Groin - Left Gram Stain - Final 05/03/20 02:30 Groin - Left Wound Culture - Final Pseudomonas Aeruginosa Proteus Species Lactose Fermenting Neg Bacilli Presumptive Mrsa (Pbp2a Pos) Group D Strep Or Entero Coccus Group D Strep Or Entero Coccus#2 05/02/20 16:29 Blood - Peripheral Venous Blood Culture - Preliminary Mr S Aureus Staphylococcus Coagulase Neg 05/02/20 16:17 Blood - Peripheral Venous Blood Culture - Preliminary Staphylococcus Coagulase Neg 05/02/20 16:45 Urine - Urine Muro Urine Culture - Final Group D Strep Or Entero Coccus Problems reviewed: Yes Code(s): R78.81 - BACTEREMIA COVID 19 PCR in preparation of discharge back to SN[facility]
[2020-05-16] MEDS ORDERED: METOPROLOL TARTRATE 5 MG/5 ML VIAL IVPUSH PRN ×3 (14:30→16:39)
[2020-05-16] MEDS ORDERED: AMINO ACIDS 4.25%/D5W 1,000 ML IV SCH ×2 (14:45)
--- NOTE | 2020-05-16 21:31 | PN ---
Progress Note, Physician History of Present Illness: LETHARGIC, CONFUSED OFFERS NO COMPLAINTS WBC IMPROVED + AZOTEMIA BC POLYMICROBIAL VANCO LEVEL NOTED - Current Medication List Current Medications: Active Medications Collagenase (Santyl -) 1 applic TP DAILY [facility]; Protocol Amino Acids (Clinimix -) 1,000 mls @ 42 mls/hr IV Q24H [facility] Metoprolol Tartrate (Lopressor -) 25 mg PO BID [facility] Metoprolol Tartrate (Lopressor Injection -) 5 mg IVPUSH Q4H PRN PRN Reason: FOR HR > 130 Mirtazapine (Remeron -) 15 mg PO HS [facility] Nystatin (Nystop Powder -) 1 applic TP BID [facility] Pantoprazole Sodium (Protonix Iv) 40 mg IVPUSH BID [facility] - Objective Vital Signs: Vital Signs Temperature 98.2 F 05/16/20 18:39 Pulse Rate 100 H 05/16/20 18:39 Respiratory Rate 17 05/16/20 20:52 Blood Pressure 105/52 L 05/16/20 18:39 O2 Sat by Pulse Oximetry (%) 100 05/16/20 20:52 Constitutional: Yes: Obese Cardiovascular: Yes: Regular Rate and Rhythm, S1, S2 Respiratory: Yes: Diminished Gastrointestinal: Yes: Normal Bowel Sounds, Soft Labs: CBC, BMP 05/16/20 06:15 05/16/20 06:15 INR, PTT INR 1.79 (0.83-1.09) H 05/15/20 11:36 Assessment/Plan + BC POLYMICROBIAL +BC MRSA VANCOMYCIN ON HOLD REPEAT RANDOM LEVEL
[2020-05-16] MEDS: MIRTAZAPINE 15 MG TABLET (FP) PO SCH (21:59)
[2020-05-16] MEDS ORDERED: PANTOPRAZOLE SODIUM 40 MG VIAL IVPUSH SCH ×2 (22:00)
[2020-05-16] MEDS ORDERED: MIRTAZAPINE 15 MG TABLET (FP) PO SCH ×2 (22:00)
[2020-05-16] MEDS ORDERED: NYSTATIN POWDER 100,000 UNITS/GM - 15 GM TOPICAL POWDER TP SCH ×2 (22:00)
[2020-05-16] MEDS ORDERED: METOPROLOL TARTRATE 25 MG TABLET (FP) PO SCH ×2 (22:00)
[2020-05-17] MEDS: NYSTATIN POWDER 100,000 UNITS/GM - 15 GM TOPICAL POWDER TP SCH ×2 (09:47→21:51)
[2020-05-17] MEDS: PANTOPRAZOLE SODIUM 40 MG VIAL IVPUSH SCH ×2 (09:47→21:52)
[2020-05-17] MEDS: COLLAGENASE CLOSTRIDIUM HIST. 30 GRAMS TUBE TP SCH (09:48)
[2020-05-17] MEDS: METOPROLOL TARTRATE 25 MG TABLET (FP) PO SCH ×2 (09:48→21:49)
[2020-05-17] MEDS ORDERED: COLLAGENASE CLOSTRIDIUM HIST. 30 GRAMS TUBE TP SCH ×2 (10:00)
--- NOTE | 2020-05-17 11:17 | PN ---
Progress Note, Physician History of Present Illness: AWAKE, ALERT ON BIPAP OFFERS NO COMPLAINTS WBC IMPROVED WNL + AZOTEMIA BC POLYMICROBIAL, INCLUDING MRSA VANCO LEVEL NOTED, REPEAT ORDERED - Current Medication List Current Medications: Active Medications Collagenase (Santyl -) 1 applic TP DAILY [facility]; Protocol Last Admin: 05/17/20 09:48 Dose: 1 applic Documented by: Amino Acids (Clinimix -) 1,000 mls @ 42 mls/hr IV Q24H [facility] Metoprolol Tartrate (Lopressor -) 25 mg PO BID [facility] Last Admin: 05/17/20 09:48 Dose: 25 mg Documented by: Metoprolol Tartrate (Lopressor Injection -) 5 mg IVPUSH Q4H PRN PRN Reason: FOR HR > 130 Mirtazapine (Remeron -) 15 mg PO HS [facility] Last Admin: 05/16/20 21:59 Dose: 15 mg Documented by: Nystatin (Nystop Powder -) 1 applic TP BID [facility] Last Admin: 05/17/20 09:47 Dose: 1 applic Documented by: Pantoprazole Sodium (Protonix Iv) 40 mg IVPUSH BID [facility] Last Admin: 05/17/20 09:47 Dose: 40 mg Documented by: - Objective Vital Signs: Vital Signs Temperature 98.4 F 05/17/20 06:00 Pulse Rate 78 05/17/20 06:00 Respiratory Rate 17 05/17/20 06:00 Blood Pressure 92/48 L 05/17/20 06:00 O2 Sat by Pulse Oximetry (%) 99 05/17/20 05:00 Constitutional: Yes: No Distress, Obese Eyes: Yes: Conjunctiva Clear Cardiovascular: Yes: Regular Rate and Rhythm, S1, S2 Respiratory: Yes: CTA Bilaterally, Diminished Gastrointestinal: Yes: Normal Bowel Sounds, Soft. No: Tenderness Labs: CBC, BMP 05/16/20 06:15 05/16/20 06:15 INR, PTT INR 1.79 (0.83-1.09) H 05/15/20 11:36 Assessment/Plan + BC POLYMICROBIAL +BC MRSA VANCOMYCIN ON HOLD REPEAT RANDOM LEVEL REDOSE BASED ON LEVEL
--- NOTE | 2020-05-17 13:06 | PN ---
Progress Note, Physician - Current Medication List Current Medications: Active Medications Collagenase (Santyl -) 1 applic TP DAILY [facility]; Protocol Last Admin: 05/17/20 09:48 Dose: 1 applic Documented by: Amino Acids (Clinimix -) 1,000 mls @ 42 mls/hr IV Q24H [facility] Metoprolol Tartrate (Lopressor -) 25 mg PO BID [facility] Last Admin: 05/17/20 09:48 Dose: 25 mg Documented by: Metoprolol Tartrate (Lopressor Injection -) 5 mg IVPUSH Q4H PRN PRN Reason: FOR HR > 130 Mirtazapine (Remeron -) 15 mg PO HS [facility] Last Admin: 05/16/20 21:59 Dose: 15 mg Documented by: Nystatin (Nystop Powder -) 1 applic TP BID [facility] Last Admin: 05/17/20 09:47 Dose: 1 applic Documented by: Pantoprazole Sodium (Protonix Iv) 40 mg IVPUSH BID [facility] Last Admin: 05/17/20 09:47 Dose: 40 mg Documented by: - Objective Vital Signs: Vital Signs Temperature 97.3 F L 05/17/20 10:00 Pulse Rate 103 H 05/17/20 10:00 Respiratory Rate 18 05/17/20 10:00 Blood Pressure 132/70 05/17/20 10:00 O2 Sat by Pulse Oximetry (%) 100 05/17/20 09:00 Cardiovascular: Yes: S1, S2 Respiratory: Yes: Regular, CTA Bilaterally Gastrointestinal: Yes: Normal Bowel Sounds, Soft. No: Tenderness Labs: CBC, BMP 05/16/20 06:15 05/16/20 06:15 INR, PTT INR 1.79 (0.83-1.09) H 05/15/20 11:36 Problem List - Problems (1) Hypernatremia Assessment/Plan: IVF HOLD DIURETICS RENAL CONSULT FOLLOW LABS Code(s): E87.0 - HYPEROSMOLALITY AND HYPERNATREMIA (2) Sepsis Assessment/Plan: WBC 12 BC Microbiology 05/02/20 16:17 Blood - Peripheral Venous Blood Culture - Preliminary Pending Organism Pending Organism#2 05/02/20 16:29 Blood - Peripheral Venous Blood Culture - Preliminary Pending Organism Pending Organism#2 05/03/20 02:30 Groin - Left Gram Stain - Final ID CONSULT Code(s): A41.9 - SEPSIS, UNSPECIFIED ORGANISM Qualifiers: (3) Afib Assessment/Plan: SAME MEDS Code(s): I48.91 - UNSPECIFIED ATRIAL FIBRILLATION (4) CKD (chronic kidney disease) Assessment/Plan: RENAL ON BOARD Code(s): N18.9 - CHRONIC KIDNEY DISEASE, UNSPECIFIED Assessment/Plan - Problems (1) Failure to thrive Assessment/Plan: -megastrol -Continue mirtazapine -Seen by Palliative care Problems reviewed: Yes Code(s): [id number] - (2) POLINA (acute kidney injury) Assessment/Plan: -Nephrology on board -daily AM labs Problems reviewed: Yes Code(s): N17.9 - ACUTE KIDNEY FAILURE, UNSPECIFIED (3) Afib Assessment/Plan: -chronic, rate controlled -Eliquis discontinued last admission due to possible GI bleed and drop in her H/H -Eliquis restarted upon admission this time -will monitor her H/H closely -Decrease Eliquis dosage to 2.5 mg po bid given pt's age and Elevated Cr. -No concern for PE at this time Problems reviewed: Yes Code(s): I48.91 - UNSPECIFIED ATRIAL FIBRILLATION (4) Anemia Assessment/Plan: -r/o GI bleed possible melena -dc eliquis -stat labs -ppi -chronic,2/2 to chronic blood loss Problems reviewed: Yes Code(s): D64.9 - ANEMIA, UNSPECIFIED Qualifiers: Chronic kidney disease stage: stage 3 (moderate) (5) Hypotension Assessment/Plan: -r/o gi bleed -r/o sepsis -icu care -id follow up (6) Bacteremia Assessment/Plan: -Finished On IV meropenem -ID on board -Afebrile -Cultures: COVID 19 PCR in preparation of discharge back to [facility] Microbiology 05/14/20 20:31 Blood - Peripheral Venous Blood Culture - Preliminary NO GROWTH OBTAINED AFTER 48 HOURS, INCUBATION TO CONTINUE FOR 3 DAYS. 05/14/20 20:31 Blood - Peripheral Venous Blood Culture - Preliminary NO GROWTH OBTAINED AFTER 48 HOURS, INCUBATION TO CONTINUE FOR 3 DAYS. 05/04/20 10:20 Blood - Peripheral Venous Blood Culture - Final NO GROWTH AFTER 5 DAYS INCUBATION 05/04/20 10:38 Blood - Peripheral Venous Blood Culture - Final NO GROWTH AFTER 5 DAYS INCUBATION 05/03/20 02:30 Groin - Left Gram Stain - Final 05/03/20 02:30 Groin - Left Wound Culture - Final Pseudomonas Aeruginosa Proteus Species Lactose Fermenting Neg Bacilli Presumptive Mrsa (Pbp2a Pos) Group D Strep Or Entero Coccus Group D Strep Or Entero Coccus#2 05/02/20 16:29 Blood - Peripheral Venous Blood Culture - Final S Aureus Staphylococcus Auricularis 05/02/20 16:17 Blood - Peripheral Venous Blood Culture - Final Staphylococcus Epidermidis 05/02/20 16:45 Urine - Urine Muro Urine Culture - Final Group D Strep Or Entero Coccus Problems reviewed: Yes Code(s): R78.81 - BACTEREMIA
--- NOTE | 2020-05-17 14:04 | PN ---
Progress Note (short form) - Note Progress Note: PULMONARY States breathing is improving. Vital Signs Period Temp Pulse Resp BP Sys/Mcgarry Pulse Ox Last 24 Hr 97.3 F-98.4 F 78-103 17-18 92-132/48-70 98-100 Gen: NAD at rest Heart: RRR Lung: decreased breath sounds at the bases Abd: soft, nontender Ext: trace edema CBC, BMP 05/16/20 06:15 05/16/20 06:15 Active Medications Collagenase (Santyl -) 1 applic TP DAILY [facility]; Protocol Last Admin: 05/17/20 09:48 Dose: 1 applic Documented by: Amino Acids (Clinimix -) 1,000 mls @ 42 mls/hr IV Q24H [facility] Metoprolol Tartrate (Lopressor -) 25 mg PO BID [facility] Last Admin: 05/17/20 09:48 Dose: 25 mg Documented by: Metoprolol Tartrate (Lopressor Injection -) 5 mg IVPUSH Q4H PRN PRN Reason: FOR HR > 130 Mirtazapine (Remeron -) 15 mg PO HS [facility] Last Admin: 05/16/20 21:59 Dose: 15 mg Documented by: Nystatin (Nystop Powder -) 1 applic TP BID [facility] Last Admin: 05/17/20 09:47 Dose: 1 applic Documented by: Pantoprazole Sodium (Protonix Iv) 40 mg IVPUSH BID [facility] Last Admin: 05/17/20 09:47 Dose: 40 mg Documented by: A/P Acute on Chronic Diastolic Heart Failure Volume Overload MRSA Bacteremia UTI Atrial Fibrillation COPD Liver Cirrhosis - continue lasix - monitor urine output, creatinine - continue antibiotics - BiPAP as needed - rate control - continue anticoagulation - O2 to keep SpO2 >90%
[2020-05-17] MEDS ORDERED: AMINO ACIDS 4.25%/D5W 1,000 ML IV SCH ×2 (14:45→16:01)
--- NOTE | 2020-05-17 16:02 | PN ---
Progress Note (short form) - Note Progress Note: RENAL no complaints now on tele Last Vital Signs Temp Pulse Resp BP Pulse Ox 97.3 F L 101 H 18 132/70 98 05/17/20 10:00 05/17/20 15:46 05/17/20 10:00 05/17/20 10:00 05/17/20 15:49 lungs bilat air entry cvs s1s2 rr abd soft ext +edema, some ecchymosis neuro alert Current Medications Generic Name Dose Route Start Last Admin Trade Name Freq PRN Reason Stop Dose Admin Collagenase 1 applic 05/17/20 10:00 05/17/20 09:48 Santyl - TP 1 applic DAILY [facility] Administration Protocol Amino Acids 1,000 mls @ 42 mls/hr 05/17/20 14:45 05/17/20 15:31 Clinimix - IV Not Given Q24H [facility] Metoprolol Tartrate 25 mg 05/16/20 22:00 05/17/20 09:48 Lopressor - PO 25 mg BID [facility] Administration Metoprolol Tartrate 5 mg 05/16/20 16:39 Lopressor Injection - IVPUSH Q4H PRN FOR HR > 130 Mirtazapine 15 mg 05/16/20 22:00 05/16/20 21:59 Remeron - PO 15 mg HS [facility] Administration Nystatin 1 applic 05/16/20 22:00 05/17/20 09:47 Nystop Powder - TP 1 applic BID [facility] Administration Pantoprazole Sodium 40 mg 05/16/20 22:00 05/17/20 09:47 Protonix Iv IVPUSH 40 mg BID [facility] Administration Impression 1. POLINA 2. hypernatremia 3. altered mental status- seems better 4. copd 5. a-fib 6. gerd 7. hypoglycemia 8. chf 9. fluid overload 10. sepsis 11. liver cirrhosis 12. a-fib 13. hypokalemia resolved 14. failure to thrive- with severe hypoalbuminemia Plan -increase clinimix -monitor renal function -renal sono was negative - reduce and/or stop nexium since it can cause polina - MV
[2020-05-17] MEDS: MIRTAZAPINE 15 MG TABLET (FP) PO SCH (21:52)
--- NOTE | 2020-05-18 09:18 | PN ---
Progress Note, Physician - Current Medication List Current Medications: Active Medications Collagenase (Santyl -) 1 applic TP DAILY [facility]; Protocol Last Admin: 05/17/20 09:48 Dose: 1 applic Documented by: Metoprolol Tartrate (Lopressor -) 25 mg PO BID [facility] Last Admin: 05/17/20 21:49 Dose: Not Given Documented by: Metoprolol Tartrate (Lopressor Injection -) 5 mg IVPUSH Q4H PRN PRN Reason: FOR HR > 130 Mirtazapine (Remeron -) 15 mg PO HS [facility] Last Admin: 05/17/20 21:52 Dose: 15 mg Documented by: Nystatin (Nystop Powder -) 1 applic TP BID [facility] Last Admin: 05/17/20 21:51 Dose: 1 applic Documented by: Pantoprazole Sodium (Protonix Iv) 40 mg IVPUSH BID [facility] Last Admin: 05/17/20 21:52 Dose: 40 mg Documented by: - Objective Vital Signs: Vital Signs Temperature 97.7 F 05/18/20 05:43 Pulse Rate 109 H 05/18/20 05:43 Respiratory Rate 05/18/20 05:43 Blood Pressure 90/50 L 05/18/20 05:43 O2 Sat by Pulse Oximetry (%) 92 L 05/17/20 22:00 Cardiovascular: Yes: Regular Rate and Rhythm Respiratory: Yes: Regular, CTA Bilaterally Gastrointestinal: Yes: Normal Bowel Sounds, Soft. No: Tenderness Labs: CBC, BMP 05/16/20 06:15 05/16/20 06:15 INR, PTT INR 1.79 (0.83-1.09) H 05/15/20 11:36 Problem List - Problems (1) Hypernatremia Code(s): E87.0 - HYPEROSMOLALITY AND HYPERNATREMIA (2) Sepsis Code(s): A41.9 - SEPSIS, UNSPECIFIED ORGANISM Qualifiers: (3) Afib Code(s): I48.91 - UNSPECIFIED ATRIAL FIBRILLATION (4) CKD (chronic kidney disease) Code(s): N18.9 - CHRONIC KIDNEY DISEASE, UNSPECIFIED Assessment/Plan - Problems (1) Failure to thrive Assessment/Plan: -megastrol -Continue mirtazapine -Seen by Palliative care Problems reviewed: Yes Code(s): [id number] - (2) POLINA (acute kidney injury) Assessment/Plan: -Nephrology on board -daily AM labs Problems reviewed: Yes Code(s): N17.9 - ACUTE KIDNEY FAILURE, UNSPECIFIED (3) Afib Assessment/Plan: -chronic, rate controlled -Eliquis discontinued last admission due to possible GI bleed and drop in her H/H -Eliquis restarted upon admission this time -will monitor her H/H closely -Decrease Eliquis dosage to 2.5 mg po bid given pt's age and Elevated Cr. -No concern for PE at this time Problems reviewed: Yes Code(s): I48.91 - UNSPECIFIED ATRIAL FIBRILLATION (4) Anemia Assessment/Plan: -dc eliquis -monitor labs -ppi -chronic,2/2 to chronic blood loss Problems reviewed: Yes Code(s): D64.9 - ANEMIA, UNSPECIFIED Qualifiers: Chronic kidney disease stage: stage 3 (moderate) (5) Hypotension Assessment/Plan: -resolved -id follow up (6) Bacteremia Assessment/Plan: -Finished On IV meropenem -ID on board -Afebrile -Cultures: COVID 19 PCR in preparation of discharge back to [facility] Microbiology 05/14/20 20:31 Blood - Peripheral Venous Blood Culture - Preliminary NO GROWTH OBTAINED AFTER 48 HOURS, INCUBATION TO CONTINUE FOR 3 DAYS. 05/14/20 20:31 Blood - Peripheral Venous Blood Culture - Preliminary NO GROWTH OBTAINED AFTER 48 HOURS, INCUBATION TO CONTINUE FOR 3 DAYS. 05/04/20 10:20 Blood - Peripheral Venous Blood Culture - Final NO GROWTH AFTER 5 DAYS INCUBATION 05/04/20 10:38 Blood - Peripheral Venous Blood Culture - Final NO GROWTH AFTER 5 DAYS INCUBATION 05/03/20 02:30 Groin - Left Gram Stain - Final 05/03/20 02:30 Groin - Left Wound Culture - Final Pseudomonas Aeruginosa Proteus Species Lactose Fermenting Neg Bacilli Presumptive Mrsa (Pbp2a Pos) Group D Strep Or Entero Coccus Group D Strep Or Entero Coccus#2 05/02/20 16:29 Blood - Peripheral Venous Blood Culture - Final S Aureus Staphylococcus Auricularis 05/02/20 16:17 Blood - Peripheral Venous Blood Culture - Final Staphylococcus Epidermidis 05/02/20 16:45 Urine - Urine Muro Urine Culture - Final Group D Strep Or Entero Coccus Problems reviewed: Yes Code(s): R78.81 - BACTEREMIA
[2020-05-18] MEDS: METOPROLOL TARTRATE 25 MG TABLET (FP) PO SCH ×2 (10:57→22:09)
[2020-05-18] MEDS: PANTOPRAZOLE SODIUM 40 MG VIAL IVPUSH SCH ×2 (10:57→22:09)
[2020-05-18] MEDS: COLLAGENASE CLOSTRIDIUM HIST. 30 GRAMS TUBE TP SCH (10:57)
[2020-05-18] MEDS: NYSTATIN POWDER 100,000 UNITS/GM - 15 GM TOPICAL POWDER TP SCH ×2 (10:57→22:09)
[2020-05-18 11:46] LABS: BASO % 0.8 % (0-2.0); EOS % 9.6 % (0-4.5); HEMATOCRIT 28.7 % (32.4-45.2); HEMOGLOBIN 9.2 GM/dL (10.7-15.3); LYMPH % 10.2 % (8-40); MEAN CELL VOLUME 90.4 fl (80-96); MEAN PLT VOLUME 7.8 fl (7.5-11.1); MONO % 7.5 % (3.8-10.2); NEUT % 71.9 % (42.8-82.8); PLATELET COUNT 281 K/MM3 (134-434); RBC 3.18 M/mm3 (3.60-5.2); RDW 17.7 % (11.6-15.6)
[2020-05-18 12:18] LABS: ALBUMIN 1.3 g/dl (3.4-5.0); BILIRUBIN,TOTAL 0.5 mg/dL (0.2-1); BLOOD UREA NITROGEN 93.5 mg/dL (7-18); CALCIUM 7.4 mg/dL (8.5-10.1); CREATININE 2.9 mg/dL (0.55-1.3); POTASSIUM 3.9 mmol/L (3.5-5.1); TOT PROT 4.4 g/dl (6.4-8.2)
[2020-05-18 12:45] LABS: ANISOCYTOSIS 2+; PLATELET ESTIMATE NORMAL; TARGET CELLS 0
[2020-05-18 12:49] LABS: BASO % 0.7 % (0-2.0); HEMATOCRIT 29.2 % (32.4-45.2); HEMOGLOBIN 9.3 GM/dL (10.7-15.3); LYMPH % 9.2 % (8-40); MCH 28.7 pg (25.7-33.7); MCHC 31.8 g/dl (32.0-36.0); MEAN CELL VOLUME 90.2 fl (80-96); MEAN PLT VOLUME 7.9 fl (7.5-11.1); MONO % 7.9 % (3.8-10.2); NEUT % 73.2 % (42.8-82.8); PLATELET COUNT 282 K/MM3 (134-434); RBC 3.23 M/mm3 (3.60-5.2); RDW 17.3 % (11.6-15.6); WHITE BLOOD COUNT 8.5 K/mm3 (4.0-10.0)
[2020-05-18 13:18] LABS: ALBUMIN 1.2 g/dl (3.4-5.0); BILIRUBIN,TOTAL 0.7 mg/dL (0.2-1); BLOOD UREA NITROGEN 95.2 mg/dL (7-18); CALCIUM 7.4 mg/dL (8.5-10.1); CREATININE 2.9 mg/dL (0.55-1.3); MAGNESIUM 1.9 mg/dL (1.8-2.4); POTASSIUM 3.7 mmol/L (3.5-5.1); TOT PROT 4.3 g/dl (6.4-8.2)
--- NOTE | 2020-05-18 13:37 | PN ---
Progress Note (short form) - Note Progress Note: Awake and responsive on HFOT. Mildly tachypneic at rest. No acute events overnight. Intake & Output 05/15/20 05/16/20 05/17/20 05/18/20 23:59 23:59 23:59 23:59 Intake Total 1180 1188 1410 50 Output Total 50 300 0 Balance 8980 238 0896 50 Weight 176 lb 3 oz 177 lb 8 oz Last Vital Signs Temp Pulse Resp BP Pulse Ox 97.7 F 109 H 20 90/50 L 92 L 05/18/20 05:43 05/18/20 05:43 05/18/20 05:43 05/18/20 05:43 05/17/20 22:00 Active Medications Collagenase (Santyl -) 1 applic TP DAILY [facility]; Protocol Last Admin: 05/18/20 10:57 Dose: 1 applic Documented by: Metoprolol Tartrate (Lopressor -) 25 mg PO BID [facility] Last Admin: 05/18/20 10:57 Dose: Not Given Documented by: Metoprolol Tartrate (Lopressor Injection -) 5 mg IVPUSH Q4H PRN PRN Reason: FOR HR > 130 Mirtazapine (Remeron -) 15 mg PO HS [facility] Last Admin: 05/17/20 21:52 Dose: 15 mg Documented by: Nystatin (Nystop Powder -) 1 applic TP BID [facility] Last Admin: 05/18/20 10:57 Dose: 1 applic Documented by: Pantoprazole Sodium (Protonix Iv) 40 mg IVPUSH BID [facility] Last Admin: 05/18/20 10:57 Dose: 40 mg Documented by: Gen: Mildly tachypneic on HFOT Heart: RRR Lung: decreased breath sounds at the bases Abd: soft, nontender Ext: trace edema Laboratory Results - last 24 hr 05/17/20 05/18/20 05/18/20 12:25 11:14 11:14 WBC 9.0 RBC 3.18 L Hgb 9.2 L Hct 28.7 L MCV 90.4 MCH 29.0 MCHC 32.0 RDW 17.7 H Plt Count 281 MPV 7.8 Absolute Neuts (auto) 6.5 Neutrophils % 71.9 Neutrophils % (Manual) 56.4 Band Neutrophils % 15.8 Lymphocytes % 10.2 Lymphocytes % (Manual) 11.9 D Monocytes % 7.5 Monocytes % (Manual) 2 L Eosinophils % 9.6 H D Eosinophils % (Manual) 6.9 H D Basophils % 0.8 Basophils % (Manual) 2.0 D Myelocytes % (Man) 2 D Promyelocytes % (Man) 0 Blast Cells % (Manual) 0 Nucleated RBC % 0 Metamyelocytes 2 D Hypochromia 2+ Platelet Estimate Normal Polychromasia 0 Poikilocytosis 0 Anisocytosis 2+ Microcytosis 2+ Target Cells 0 Sodium 146 H Potassium 3.9 Chloride 111 H Carbon Dioxide 30 Anion Gap 5 L BUN 93.5 H Creatinine 2.9 H Est GFR (CKD-EPI)AfAm 16.65 Est GFR (CKD-EPI)NonAf 14.37 Random Glucose 72 L Calcium 7.4 L Magnesium Total Bilirubin 0.5 AST 23 ALT 14 Alkaline Phosphatase 126 H Total Protein 4.4 L Albumin 1.3 L Random Vancomycin 23.0 05/18/20 05/18/20 05/18/20 12:12 12:14 12:14 WBC 8.5 RBC 3.23 L Hgb 9.3 L Hct 29.2 L MCV 90.2 MCH 28.7 MCHC 31.8 L RDW 17.3 H Plt Count 282 MPV 7.9 Absolute Neuts (auto) 6.2 Neutrophils % 73.2 Neutrophils % (Manual) Band Neutrophils % Lymphocytes % 9.2 Lymphocytes % (Manual) Monocytes % 7.9 Monocytes % (Manual) Eosinophils % 9.0 H Eosinophils % (Manual) Basophils % 0.7 Basophils % (Manual) Myelocytes % (Man) Promyelocytes % (Man) Blast Cells % (Manual) Nucleated RBC % 0 Metamyelocytes Hypochromia Platelet Estimate Polychromasia Poikilocytosis Anisocytosis Microcytosis Target Cells Sodium 146 H Potassium 3.7 Chloride 111 H Carbon Dioxide 28 Anion Gap 7 L BUN 95.2 H Creatinine 2.9 H Est GFR (CKD-EPI)AfAm 16.65 Est GFR (CKD-EPI)NonAf 14.37 Random Glucose 85 Calcium 7.4 L Magnesium 1.9 Total Bilirubin 0.7 AST 25 ALT 13 Alkaline Phosphatase 124 H Total Protein 4.3 L Albumin 1.2 L Random Vancomycin 20.8 A/P Acute on Chronic Diastolic Heart Failure Volume Overload MRSA Bacteremia UTI Atrial Fibrillation COPD Liver Cirrhosis - HFOT as tolerated - P Care for GOC - continue lasix - monitor urine output, creatinine - continue antibiotics - NIPPV if needed - rate control - continue anticoagulation Dr Carver Problem List - Problems (1) Atelectasis Code(s): J98.11 - ATELECTASIS (2) Pleural effusion Code(s): J90 - PLEURAL EFFUSION, NOT ELSEWHERE CLASSIFIED (3) Afib Code(s): I48.91 - UNSPECIFIED ATRIAL FIBRILLATION (4) Anemia Code(s): D64.9 - ANEMIA, UNSPECIFIED Qualifiers: Chronic kidney disease stage: stage 3 (moderate) (5) CHF exacerbation Code(s): I50.9 - HEART FAILURE, UNSPECIFIED (6) CKD (chronic kidney disease) Code(s): N18.9 - CHRONIC KIDNEY DISEASE, UNSPECIFIED (7) Dementia Code(s): F03.90 - UNSPECIFIED DEMENTIA WITHOUT BEHAVIORAL DISTURBANCE (8) GERD (gastroesophageal reflux disease) Code(s): K21.9 - GASTRO-ESOPHAGEAL REFLUX DISEASE WITHOUT ESOPHAGITIS
[2020-05-18 13:39] LABS: ANISOCYTOSIS 1+; MACROCYTOSIS 0; PLATELET ESTIMATE NORMAL
--- NOTE | 2020-05-18 14:48 | PN ---
Progress Note, Physician History of Present Illness: Pt seen and examined at bedside. She is awake and appears comfortable. - Current Medication List Current Medications: Active Medications Collagenase (Santyl -) 1 applic TP DAILY [facility]; Protocol Last Admin: 05/18/20 10:57 Dose: 1 applic Documented by: Metoprolol Tartrate (Lopressor -) 25 mg PO BID [facility] Last Admin: 05/18/20 10:57 Dose: Not Given Documented by: Metoprolol Tartrate (Lopressor Injection -) 5 mg IVPUSH Q4H PRN PRN Reason: FOR HR > 130 Mirtazapine (Remeron -) 15 mg PO HS [facility] Last Admin: 05/17/20 21:52 Dose: 15 mg Documented by: Nystatin (Nystop Powder -) 1 applic TP BID [facility] Last Admin: 05/18/20 10:57 Dose: 1 applic Documented by: Pantoprazole Sodium (Protonix Iv) 40 mg IVPUSH BID [facility] Last Admin: 05/18/20 10:57 Dose: 40 mg Documented by: - Objective Vital Signs: Vital Signs Temperature 97.7 F 05/18/20 05:43 Pulse Rate 109 H 05/18/20 05:43 Respiratory Rate 20 05/18/20 05:43 Blood Pressure 90/50 L 05/18/20 05:43 O2 Sat by Pulse Oximetry (%) 92 L 05/17/20 22:00 Constitutional: Yes: Calm Eyes: Yes: Conjunctiva Clear HENT: Yes: Atraumatic Cardiovascular: Yes: S1, S2 Respiratory: Yes: On Nasal O2 Gastrointestinal: Yes: Soft Genitourinary: Yes: Incontinence Edema: Yes Edema: LLE: 1+, RLE: 1+ Neurological: Yes: Confusion Labs: CBC, BMP 05/18/20 12:12 05/18/20 12:14 INR, PTT INR 1.79 (0.83-1.09) H 05/15/20 11:36 Assessment/Plan Current Medications Generic Name Dose Route Start Last Admin Trade Name Freq PRN Reason Stop Dose Admin Collagenase 1 applic 05/17/20 10:00 05/18/20 10:57 Santyl - TP 1 applic DAILY [facility] Administration Protocol Metoprolol Tartrate 25 mg 05/16/20 22:00 05/18/20 10:57 Lopressor - PO Not Given BID [facility] Metoprolol Tartrate 5 mg 05/16/20 16:39 Lopressor Injection - IVPUSH Q4H PRN FOR HR > 130 Mirtazapine 15 mg 05/16/20 22:00 05/17/20 21:52 Remeron - PO 15 mg HS [facility] Administration Nystatin 1 applic 05/16/20 22:00 05/18/20 10:57 Nystop Powder - TP 1 applic BID [facility] Administration Pantoprazole Sodium 40 mg 05/16/20 22:00 05/18/20 10:57 Protonix Iv IVPUSH 40 mg BID [facility] Administration Impression 1. POLINA 2. hyponatremia 3. altered mental status 4. copd 5. a-fib 6. gerd 7. hypoglycemia 8. chf 9. fluid overload 10. sepsis 11. liver cirrhosis 12. a-fib 13. hypokalemia 14. failure to thrive Plan - restart clinimix if iv placed - repeat labs in am - monitor sodium level - monitor pulse ox - encourage po inake
[2020-05-18] MEDS ORDERED: AMINO ACIDS 4.25%/D5W 1,000 ML IV SCH (15:00)
--- NOTE | 2020-05-18 15:57 | PN ---
Progress Note, Physician History of Present Illness: AWAKE IN BED TACHYPNEIC ON HIGH FLOW 02 OFFERS NO COMPLAINTS WBC IMPROVED WNL + AZOTEMIA BC POLYMICROBIAL, INCLUDING MRSA VANCO LEVEL NOTED, REPEAT ORDERED - Current Medication List Current Medications: Active Medications Collagenase (Santyl -) 1 applic TP DAILY [facility]; Protocol Last Admin: 05/18/20 10:57 Dose: 1 applic Documented by: Amino Acids (Clinimix -) 1,000 mls @ 42 mls/hr IV Q24H [facility] Metoprolol Tartrate (Lopressor -) 25 mg PO BID [facility] Last Admin: 05/18/20 10:57 Dose: Not Given Documented by: Metoprolol Tartrate (Lopressor Injection -) 5 mg IVPUSH Q4H PRN PRN Reason: FOR HR > 130 Mirtazapine (Remeron -) 15 mg PO HS [facility] Last Admin: 05/17/20 21:52 Dose: 15 mg Documented by: Nystatin (Nystop Powder -) 1 applic TP BID [facility] Last Admin: 05/18/20 10:57 Dose: 1 applic Documented by: Pantoprazole Sodium (Protonix Iv) 40 mg IVPUSH BID [facility] Last Admin: 05/18/20 10:57 Dose: 40 mg Documented by: - Objective Vital Signs: Vital Signs Temperature 97.7 F 05/18/20 05:43 Pulse Rate 109 H 05/18/20 05:43 Respiratory Rate 20 05/18/20 05:43 Blood Pressure 90/50 L 05/18/20 05:43 O2 Sat by Pulse Oximetry (%) 92 L 05/18/20 15:51 Constitutional: Yes: No Distress, Obese Cardiovascular: Yes: Regular Rate and Rhythm, S1, S2 Respiratory: Yes: CTA Bilaterally Gastrointestinal: Yes: Normal Bowel Sounds, Soft. No: Tenderness Edema: Yes Labs: CBC, BMP 05/18/20 12:12 05/18/20 12:14 INR, PTT INR 1.79 (0.83-1.09) H 05/15/20 11:36 Assessment/Plan + BC POLYMICROBIAL +BC MRSA VANCOMYCIN ON HOLD REPEAT RANDOM LEVEL REDOSE BASED ON LEVEL
[2020-05-18] MEDS: MIRTAZAPINE 15 MG TABLET (FP) PO SCH (22:09)
--- NOTE | 2020-05-19 07:29 | PN ---
Progress Note, Physician History of Present Illness: pulmonary drowsy on bipap,-resp distress - Current Medication List Current Medications: Active Medications Collagenase (Santyl -) 1 applic TP DAILY [facility]; Protocol Last Admin: 05/18/20 10:57 Dose: 1 applic Documented by: Amino Acids (Clinimix -) 1,000 mls @ 42 mls/hr IV Q24H [facility] Last Admin: 05/18/20 16:04 Dose: 42 mls/hr Documented by: Metoprolol Tartrate (Lopressor -) 25 mg PO BID [facility] Last Admin: 05/18/20 22:09 Dose: 25 mg Documented by: Metoprolol Tartrate (Lopressor Injection -) 5 mg IVPUSH Q4H PRN PRN Reason: FOR HR > 130 Mirtazapine (Remeron -) 15 mg PO HS [facility] Last Admin: 05/18/20 22:09 Dose: 15 mg Documented by: Nystatin (Nystop Powder -) 1 applic TP BID [facility] Last Admin: 05/18/20 22:09 Dose: 1 applic Documented by: Pantoprazole Sodium (Protonix Iv) 40 mg IVPUSH BID [facility] Last Admin: 05/18/20 22:09 Dose: 40 mg Documented by: - Objective Vital Signs: Vital Signs Temperature 98.1 F 05/19/20 06:00 Pulse Rate 88 05/19/20 06:00 Respiratory Rate 18 05/19/20 06:00 Blood Pressure 92/55 L 05/19/20 06:00 O2 Sat by Pulse Oximetry (%) 100 05/19/20 04:45 Constitutional: Yes: Well Nourished, Calm Eyes: Yes: WNL HENT: Yes: WNL Neck: Yes: WNL Cardiovascular: Yes: Regular Rate and Rhythm, S1, S2 Respiratory: Yes: Diminished, On BiPap Gastrointestinal: Yes: Normal Bowel Sounds, Soft Extremities: Yes: WNL Edema: No Labs: CBC, BMP 05/18/20 12:12 05/18/20 12:14 INR, PTT INR 1.79 (0.83-1.09) H 05/15/20 11:36 Problem List - Problems (1) Atelectasis Code(s): J98.11 - ATELECTASIS (2) Bacteremia Code(s): R78.81 - BACTEREMIA (3) Pleural effusion Code(s): J90 - PLEURAL EFFUSION, NOT ELSEWHERE CLASSIFIED (4) Afib Code(s): I48.91 - UNSPECIFIED ATRIAL FIBRILLATION (5) CKD (chronic kidney disease) Code(s): N18.9 - CHRONIC KIDNEY DISEASE, UNSPECIFIED (6) GERD (gastroesophageal reflux disease) Code(s): K21.9 - GASTRO-ESOPHAGEAL REFLUX DISEASE WITHOUT ESOPHAGITIS (7) Acute on chronic diastolic (congestive) heart failure Code(s): I50.33 - ACUTE ON CHRONIC DIASTOLIC (CONGESTIVE) HEART FAILURE Assessment/Plan A/P Acute on Chronic Diastolic Heart Failure improving Volume Overload improving MRSA Bacteremia UTI Atrial Fibrillation COPD Liver Cirrhosis - monitor urine output, creatinine - BiPAP as needed - rate control - O2 to keep SpO2 >90% DR DOTY
--- NOTE | 2020-05-19 09:48 | PN ---
Progress Note, Physician - Current Medication List Current Medications: Active Medications Collagenase (Santyl -) 1 applic TP DAILY [facility]; Protocol Last Admin: 05/18/20 10:57 Dose: 1 applic Documented by: Amino Acids (Clinimix -) 1,000 mls @ 42 mls/hr IV Q24H [facility] Last Admin: 05/18/20 16:04 Dose: 42 mls/hr Documented by: Metoprolol Tartrate (Lopressor -) 25 mg PO BID [facility] Last Admin: 05/18/20 22:09 Dose: 25 mg Documented by: Metoprolol Tartrate (Lopressor Injection -) 5 mg IVPUSH Q4H PRN PRN Reason: FOR HR > 130 Mirtazapine (Remeron -) 15 mg PO HS [facility] Last Admin: 05/18/20 22:09 Dose: 15 mg Documented by: Nystatin (Nystop Powder -) 1 applic TP BID [facility] Last Admin: 05/18/20 22:09 Dose: 1 applic Documented by: Pantoprazole Sodium (Protonix Iv) 40 mg IVPUSH BID [facility] Last Admin: 05/18/20 22:09 Dose: 40 mg Documented by: - Objective Vital Signs: Vital Signs Temperature 98.1 F 05/19/20 06:00 Pulse Rate 88 05/19/20 06:00 Respiratory Rate 18 05/19/20 06:00 Blood Pressure 92/55 L 05/19/20 06:00 O2 Sat by Pulse Oximetry (%) 100 05/19/20 04:45 Cardiovascular: Yes: S1, S2 Respiratory: Yes: Regular, CTA Bilaterally Gastrointestinal: Yes: Normal Bowel Sounds, Soft. No: Tenderness Labs: CBC, BMP 05/18/20 12:12 05/18/20 12:14 INR, PTT INR 1.79 (0.83-1.09) H 05/15/20 11:36 Problem List - Problems (1) Hypernatremia Code(s): E87.0 - HYPEROSMOLALITY AND HYPERNATREMIA (2) Sepsis Code(s): A41.9 - SEPSIS, UNSPECIFIED ORGANISM Qualifiers: (3) Afib Code(s): I48.91 - UNSPECIFIED ATRIAL FIBRILLATION (4) CKD (chronic kidney disease) Code(s): N18.9 - CHRONIC KIDNEY DISEASE, UNSPECIFIED Assessment/Plan - Problems (1) Failure to thrive Assessment/Plan: -megastrol -Continue mirtazapine -Seen by Palliative care Problems reviewed: Yes Code(s): [id number] - (2) POLINA (acute kidney injury) Assessment/Plan: -Nephrology on board -daily AM labs Problems reviewed: Yes Code(s): N17.9 - ACUTE KIDNEY FAILURE, UNSPECIFIED (3) Afib Assessment/Plan: -chronic, rate controlled -Eliquis discontinued last admission due to possible GI bleed and drop in her H/H -Eliquis restarted upon admission this time -will monitor her H/H closely -Decrease Eliquis dosage to 2.5 mg po bid given pt's age and Elevated Cr. -No concern for PE at this time Problems reviewed: Yes Code(s): I48.91 - UNSPECIFIED ATRIAL FIBRILLATION (4) Anemia Assessment/Plan: -dc eliquis -monitor labs -ppi -chronic,2/2 to chronic blood loss Problems reviewed: Yes Code(s): D64.9 - ANEMIA, UNSPECIFIED Qualifiers: Chronic kidney disease stage: stage 3 (moderate) (5) Hypotension Assessment/Plan: -resolved -id follow up (6) Bacteremia Assessment/Plan: -Finished On IV meropenem -ID on board -Afebrile -Cultures: COVID 19 PCR in preparation of discharge back to [facility] Microbiology 05/14/20 20:31 Blood - Peripheral Venous Blood Culture - Preliminary NO GROWTH OBTAINED AFTER 48 HOURS, INCUBATION TO CONTINUE FOR 3 DAYS. 05/14/20 20:31 Blood - Peripheral Venous Blood Culture - Preliminary NO GROWTH OBTAINED AFTER 48 HOURS, INCUBATION TO CONTINUE FOR 3 DAYS. 05/04/20 10:20 Blood - Peripheral Venous Blood Culture - Final NO GROWTH AFTER 5 DAYS INCUBATION 05/04/20 10:38 Blood - Peripheral Venous Blood Culture - Final NO GROWTH AFTER 5 DAYS INCUBATION 05/03/20 02:30 Groin - Left Gram Stain - Final 05/03/20 02:30 Groin - Left Wound Culture - Final Pseudomonas Aeruginosa Proteus Species Lactose Fermenting Neg Bacilli Presumptive Mrsa (Pbp2a Pos) Group D Strep Or Entero Coccus Group D Strep Or Entero Coccus#2 05/02/20 16:29 Blood - Peripheral Venous Blood Culture - Final Mr S Aureus Staphylococcus Auricularis 05/02/20 16:17 Blood - Peripheral Venous Blood Culture - Final Staphylococcus Epidermidis 05/02/20 16:45 Urine - Urine Muro Urine Culture - Final Group D Strep Or Entero Coccus Problems reviewed: Yes Code(s): R78.81 - BACTEREMIA
[2020-05-19] MEDS: PANTOPRAZOLE SODIUM 40 MG VIAL IVPUSH SCH (09:50)
[2020-05-19] MEDS: METOPROLOL TARTRATE 25 MG TABLET (FP) PO SCH (09:50)
[2020-05-19] MEDS: NYSTATIN POWDER 100,000 UNITS/GM - 15 GM TOPICAL POWDER TP SCH (09:50)
[2020-05-19] MEDS: COLLAGENASE CLOSTRIDIUM HIST. 30 GRAMS TUBE TP SCH (09:50)
[2020-05-19 12:35] VITALS: BMI 34.7
[2020-05-19 14:16] VITALS: BP 101/45; PULSE 101; TEMP 97.8
--- NOTE | 2020-05-19 15:55 | DS ---
Physical Examination Vital Signs: Vital Signs Temperature 97.8 F 05/19/20 14:15 Pulse Rate 101 H 05/19/20 14:15 Respiratory Rate 20 05/19/20 14:15 Blood Pressure 101/45 L 05/19/20 14:15 O2 Sat by Pulse Oximetry (%) 99 05/19/20 12:51 Labs: CBC, BMP 05/18/20 12:12 05/18/20 12:14 Discharge Summary Reason For Visit: RESPIRATORY Current Active Problems Acute on chronic diastolic (congestive) heart failure (Acute) Atelectasis (Acute) Bacteremia (Acute) Failure to thrive (Acute) Pleural effusion (Acute) Hospital Course: Problems (1) Failure to thrive Assessment/Plan: -megastrol -Continue mirtazapine -Seen by Palliative care Problems reviewed: Yes Code(s): [id number] - (2) POLINA (acute kidney injury) Assessment/Plan: -Nephrology on board -daily AM labs Problems reviewed: Yes Code(s): N17.9 - ACUTE KIDNEY FAILURE, UNSPECIFIED (3) Afib Assessment/Plan: -chronic, rate controlled -Eliquis discontinued last admission due to possible GI bleed and drop in her H/H -Eliquis restarted upon admission this time -will monitor her H/H closely -Decrease Eliquis dosage to 2.5 mg po bid given pt's age and Elevated Cr. -No concern for PE at this time Problems reviewed: Yes Code(s): I48.91 - UNSPECIFIED ATRIAL FIBRILLATION (4) Anemia Assessment/Plan: -dc eliquis -monitor labs -ppi -chronic,2/2 to chronic blood loss Problems reviewed: Yes Code(s): D64.9 - ANEMIA, UNSPECIFIED Qualifiers: Chronic kidney disease stage: stage 3 (moderate) (5) Hypotension Assessment/Plan: -resolved -id follow up (6) Bacteremia Assessment/Plan: -Finished On IV meropenem -ID on board -Afebrile -Cultures: COVID 19 PCR in preparation of discharge back to [facility] Microbiology 05/14/20 20:31 Blood - Peripheral Venous Blood Culture - Preliminary NO GROWTH OBTAINED AFTER 48 HOURS, INCUBATION TO CONTINUE FOR 3 DAYS. 05/14/20 20:31 Blood - Peripheral Venous Blood Culture - Preliminary NO GROWTH OBTAINED AFTER 48 HOURS, INCUBATION TO CONTINUE FOR 3 DAYS. 05/04/20 10:20 Blood - Peripheral Venous Blood Culture - Final NO GROWTH AFTER 5 DAYS INCUBATION 05/04/20 10:38 Blood - Peripheral Venous Blood Culture - Final NO GROWTH AFTER 5 DAYS INCUBATION 05/03/20 02:30 Groin - Left Gram Stain - Final 05/03/20 02:30 Groin - Left Wound Culture - Final Pseudomonas Aeruginosa Proteus Species Lactose Fermenting Neg Bacilli Presumptive Mrsa (Pbp2a Pos) Group D Strep Or Entero Coccus Group D Strep Or Entero Coccus#2 05/02/20 16:29 Blood - Peripheral Venous Blood Culture - Final S Aureus Staphylococcus Auricularis 05/02/20 16:17 Blood - Peripheral Venous Blood Culture - Final Staphylococcus Epidermidis 05/02/20 16:45 Urine - Urine Muro Urine Culture - Final Group D Strep Or Entero Coccus Problems reviewed: Yes Code(s): R78.81 - BACTEREMIA awaiting family decision on GOC - Instructions Referrals: Charlie Guzman MD [Primary Care Provider] - - Home Medications Comprehensive Discharge Medication List: Ambulatory Orders Mirtazapine [Remeron -] 15 mg PO HS tablet 04/10/20 Albuterol 2.5/Ipratropium 0.5 [Duoneb -] 1 amp NEB BID 05/03/20 Amino Acids 4.25%/D5w [Clinimix 4.25%/D5w Solution] 72 ml IV Q24H infus.bag 05/19/20 Collagenase Clostridium Hist. [Santyl -] 1 applic TP DAILY tube 05/19/20 Metoprolol Tartrate [Lopressor -] 25 mg PO BID tablet 05/19/20 Mirtazapine [Remeron -] 15 mg PO HS tablet 05/19/20 Nystatin Powder [Nystop Powder -] 1 applic TP BID applic 05/19/20 Pantoprazole Sodium [Protonix IV] 40 mg IVPUSH BID vial 05/19/20
--- NOTE | 2020-05-19 17:46 | PN ---
Progress Note, Physician History of Present Illness: Pt seen and examined at bedside. She is awake and appears comfortable. - Objective Vital Signs: Vital Signs Temperature 97.8 F 05/19/20 14:15 Pulse Rate 101 H 05/19/20 14:15 Respiratory Rate 20 05/19/20 14:15 Blood Pressure 101/45 L 05/19/20 14:15 O2 Sat by Pulse Oximetry (%) 99 05/19/20 12:51 Constitutional: Yes: Calm Eyes: Yes: Conjunctiva Clear HENT: Yes: Atraumatic Cardiovascular: Yes: S1, S2 Respiratory: Yes: On BiPap Gastrointestinal: Yes: Soft Genitourinary: Yes: Incontinence Musculoskeletal: Yes: Muscle Weakness Edema: No Edema: LLE: 1+, RLE: 1+ Neurological: Yes: Confusion Labs: CBC, BMP 05/18/20 12:12 05/18/20 12:14 INR, PTT INR 1.79 (0.83-1.09) H 05/15/20 11:36 Assessment/Plan Current Medications Generic Name Dose Route Start Last Admin Trade Name Freq PRN Reason Stop Dose Admin Collagenase 1 applic 05/17/20 10:00 05/18/20 10:57 Santyl - TP 1 applic DAILY DAREN Administration Protocol Metoprolol Tartrate 25 mg 05/16/20 22:00 05/18/20 10:57 Lopressor - PO Not Given BID DAREN Metoprolol Tartrate 5 mg 05/16/20 16:39 Lopressor Injection - IVPUSH Q4H PRN FOR HR > 130 Mirtazapine 15 mg 05/16/20 22:00 05/17/20 21:52 Remeron - PO 15 mg HS DAREN Administration Nystatin 1 applic 05/16/20 22:00 05/18/20 10:57 Nystop Powder - TP 1 applic BID DAREN Administration Pantoprazole Sodium 40 mg 05/16/20 22:00 05/18/20 10:57 Protonix Iv IVPUSH 40 mg BID DAREN Administration Impression 1. POLINA 2. hyponatremia 3. altered mental status 4. copd 5. a-fib 6. gerd 7. hypoglycemia 8. chf 9. fluid overload 10. sepsis 11. liver cirrhosis 12. a-fib 13. hypokalemia 14. failure to thrive Plan - no new labs - monitor lytes and renal function - bipap as needed - lasix as needed
== END 2020-05-19 16:33 | disposition hospice, inpatient (51) | DRG 871 ==
LOC: JER 15:57 → JERBED 17:33 → J4S 21:59 → JICU 05-14 12:04 → J4W 05-16 15:51
PROVIDERS: ADMIT Internal Medicine; ATTEND Family Medicine
DX: A41.02 Sepsis due to Methicillin resistant Staphylococcus aureus (principal); I50.33 Acute on chronic diastolic (congestive) heart failure; L89.153 Pressure ulcer of sacral region, stage 3; J96.01 Acute respiratory failure with hypoxia; G93.41 Metabolic encephalopathy; J98.11 Atelectasis; E87.0 Hyperosmolality and hypernatremia; N17.9 Acute kidney failure, unspecified; N39.0 Urinary tract infection, site not specified; I13.0 Hypertensive heart and chronic kidney disease with heart failure and stage 1 through stage 4 chronic kidney disease, or unspecified chronic kidney disease; D68.318 Other hemorrhagic disorder due to intrinsic circulating anticoagulants, antibodies, or inhibitors; E87.1 Hypo-osmolality and hyponatremia; I48.91 Unspecified atrial fibrillation; J44.9 Chronic obstructive pulmonary disease, unspecified; F41.1 Generalized anxiety disorder; F03.90 Unspecified dementia, unspecified severity, without behavioral disturbance, psychotic disturbance, mood disturbance, and anxiety; Z85.3 Personal history of malignant neoplasm of breast; D64.9 Anemia, unspecified; K70.30 Alcoholic cirrhosis of liver without ascites; N18.9 Chronic kidney disease, unspecified; E66.9 Obesity, unspecified; Z68.34 Body mass index [BMI] 34.0-34.9, adult; K21.9 Gastro-esophageal reflux disease without esophagitis; R13.10 Dysphagia, unspecified; E87.6 Hypokalemia; E16.2 Hypoglycemia, unspecified; R62.7 Adult failure to thrive; R33.9 Retention of urine, unspecified; E88.09 Other disorders of plasma-protein metabolism, not elsewhere classified
CPT/HCPCS: 36415; 36430; 36511; 36600; 71045-TC-FY; 76775-TC; 80048; 80053; 81003; 82272; 82550; 82803; 83605; 83735; 83880; 84100; 84484; 85025; 85379; 85610; 85730; 86850; 86870; 86900; 86901; 86902; 86922; 87040; 87070; 87077; 87086; 87186; 87205; 93005; 93010; 94660; 99285-25; G0480; P9038; P9058; U0003